=== PATIENT | male | born 1975 ===

== ENCOUNTER 2024-11-04 02:46 | Inpatient (IN) | payer BC, SELFPAY ==
[2024-11-04] VITALS (13 sets, daily range): BP systolic 153–177; BP diastolic 86–112; PULSE 74–116; RESP 13–19; TEMP 36.4–37.1; O2SAT 94–98; BMI 34.8
--- NOTE | 2024-11-04 | ECHO_ITS ---
Patient Info Name: Pavel Antony Age: 49 years : 1975 Gender: Male Ht: 73 in Wt: 249 lbs BSA: 2.44 m2 HR: 100 bpm BP: 172 / 104 mmHg Heart Rhythm: Sinus Rhythm Technical Quality: Fair Exam Date: 11/04/2024 11:35 AM Patient Status: I Admit Date: 11/04/2024 Exam Type: CA echo doppler w bubble study Complete two-dimensional, color flow and Doppler transthoracic echocardiogram is performed with agitated saline. Staff Referring Physician: Geo Lim Attending Provider: Renzo Ortiz Contrast/Agitated Saline Contrast/Ag. Saline: Agitated Saline Amount: 8.00 ml Summary 1. Agitated saline study did not review any dexah-vg-bded shunting. 2. The left ventricle is normal in size with hyperdynamic systolic function. There is concentric left ventricular remodeling. The left ventricular ejection fraction is greater than 70%. 3. The right ventricle is normal in size and systolic function. 4. There are no significant valvular abnormalities. Left Ventricle The left ventricle is normal in size with hyperdynamic systolic function. There is concentric left ventricular remodeling. The left ventricular ejection fraction is greater than 70%. Right Ventricle The right ventricle is normal in size and systolic function. Left Atria The left atrium is normal size. Right Atria The right atrium is normal size. Atrial Septum Agitated saline study did not review any nxtzc-sb-erzh shunting. Aortic Valve The aortic valve is trileaflet and opens well. There is no aortic regurgitation. Pulmonic Valve The pulmonic valve is not well visualized. There is no color Doppler evidence of pulmonic valve regurgitation. Mitral Valve The mitral valve leaflets are normal. There is no mitral regurgitation. Tricuspid Valve The tricuspid valve is normal. There is trace tricuspid regurgitation. Pericardium/Pleural Pericardium is normal in appearance with no evidence for significant pericardial effusion. Inferior Vena Cava Normal inferior vena cava with >50% collapse upon inspiration consistent with normal right atrial pressure, 3 mmHg. Aorta The aortic root at the level of the sinus of Valsalva measures 3.3 cm in diameter. Left Ventricular Outflow Tract Name Value Normal LVOT 2D LVOT Diameter 2.2 cm LVOT Doppler LVOT Peak Velocity 126 cm/s LVOT Peak Gradient 6 mmHg LVOT Mean Gradient 3 mmHg LVOT VTI 22 cm LVOT VTI/AV VTI Ratio 0.9 LVOT Stroke Volume 79 ml LVOT CO 7.5 l/min LVOT CI 3.1 l/min/m2 Pulmonic Valve Name Value Normal RVOT Doppler RVOT Peak Velocity 77 cm/s RVOT Peak Gradient 2 mmHg PV Doppler PV Peak Velocity 116 cm/s PV Peak Gradient 5 mmHg Mitral Valve Name Value Normal MV Diastolic Function MV E Peak Velocity 57 cm/s MV A Peak Velocity 79 cm/s MV E/A 0.7 MV Decel Time (PW) 192 ms MV Annular TDI MV E/e' (Septal) 8.8 MV E/e' (Lateral) 11.6 MV E/e' (Average) 10.2 Tricuspid Valve Name Value Normal TV Regurgitation Doppler TR Peak Velocity 249 cm/s TR Peak Gradient 25 mmHg Estimated PAP/RSVP RA Pressure 3 mmHg <=5 PA Systolic Pressure 28 mmHg <36 RV Systolic Pressure 28 mmHg <36 TV Annular TDI TV Lateral Gerri s' Velocity 30.6 cm/s >=9.5 Aortic Valve Name Value Normal AV Doppler AV Peak Velocity 149 cm/s AV Peak Gradient 9 mmHg AV Mean Gradient 4 mmHg AV VTI 23 cm AV Area (Cont Eq VTI) 3.4 cm2 >=3.0 AV Area (Cont Eq Fortino) 3.1 cm2 AV DI (Fortino) 0.84 AV Regurgitation 2D LVOT Area 3.6 cm2 Ventricles Name Value Normal LV Dimensions 2D/MM IVS Diastolic Thickness (2D) 1.2 cm 0.6-1.0 LVID Diastole (2D) 4.6 cm 4.2-5.8 LVIW Diastolic Thickness (2D) 1.3 cm 0.6-1.0 LVID Systole (2D) 2.7 cm 2.5-4.0 LVOT Diameter 2.2 cm LV Mass (2D Cubed) 217.75 g 88.00-224.00 LV Mass Index (2D Cubed) 89 g/m2 49-115 Relative Wall Thickness (2D) 0.58 <=0.42 LV Fractional Shortening/Ejection Fraction 2D/MM LV Fractional Shortening (2D) 42 % 25-43 LV EF (2D Teichholz) 73 % LV Diastolic Volume (4C MOD) 136 ml LV EF (4C MOD) 78 % LV Diastolic Volume (2C MOD) 143 ml LV EF (2C MOD) 79 % LV Diastolic Volume (BP MOD) 142 ml 62-150 LV Diastolic Volume Index (BP MOD) 58 ml/m2 34-74 LV Systolic Volume (BP MOD) 34 ml 21-61 LV Systolic Volume Index (BP MOD) 14 ml/m2 11-31 LV EF (BP MOD) 76 % 52-72 LV Diastolic Length (4C) 8.1 cm LV Systolic Length (4C) 5.5 cm LV Stroke Volume (4C MOD) 106 ml Atria Name Value Normal LA Dimensions LA Volume (4C A-L) 71 ml LA Volume (BP A-L) 64 ml RA Dimensions RA Systolic Major Bradley Length (4C) 4.6 cm 2.1-2.7 RA Area (4C) 16.2 cm2 <=18.0 Report Signatures
--- NOTE | ~2024-11-04 | CT_ITS ---
Non-contrast Head CT History: Viveros's palsy, left facial droop Technique: Axial non-contrast imaging of the brain was performed. Dose reduction technique was used on this scan by utilizing automated exposure control and iterative reconstruction technique. The dose -length product (DLP) was 681.00 mGy-cm. Findings: There is no evidence of intracranial hemorrhage, mass lesion, or acute infarct. Brain par enchyma appears normal. The ventricles and subarachnoid spaces are normal in size. The calvarium ap pears normal. The visualized paranasal sinuses and mastoid air cells are clear. Impression: No significant abnormality seen. Reviewed, dictated and finalized at location . Impression: No significant abnormality seen.
--- NOTE | ~2024-11-04 | XR_ITS ---
EXAMINATION: XR lumbar puncture diagnostic DATE: 11/06/2024 15:19 INDICATION: Weakness, numbness and suspected gambler a syndrome TECHNIQUE: The procedure including the risks and benefits was discussed with the patient. Risks discu ssed included spinal headache, cerebrospinal fluid leak, bleeding, and infection. The patient underst ood the risks and agreed to proceed. A timeout was performed to verify the patient's name, date of , and procedure to be performed. The skin overlying the L4-L5 level was prepped and draped in usual sterile fashion. Subcutaneous 1% lidocaine was used for local anesthesia. A 22 gauge spinal n eedle was advanced under fluoroscopic guidance. The needle was removed and the entry site was cleaned and dressed. There were no immediate complications. A total of 1 fluoroscopic images and one crosst able lateral radiograph were obtained. The amount of fluoroscopy time used during this procedure was 0.5 minutes. Total DAP was 8 mGycm^2 The patient was taken to the nursing area for observation. FINDINGS: Real-time fluoroscopy demonstrates the needle at the L4-L5 level. Opening pressure was 25 c m water. (Normal range is variably defined as 6-20 cm water and up to 25 cm water in obese patients. Pressure >25 cm water is one of the modified Dandy criteria for idiopathic intracranial hypertension) . 12 mL of clear, colorless fluid was collected in 4 tubes. IMPRESSION: 1. Successful fluoro-guided lumbar puncture with elevated opening pressure of 25 cm water. Reviewed, dictated and finalized at location A. IMPRESSION: 1. Successful fluoro-guided lumbar puncture with elevated opening pressure of 2 5 cm water.
--- NOTE | ~2024-11-04 | MR_ITS ---
EXAMINATION: MR brain/brain stem wo/w con DATE: 11/05/2024 08:26 INDICATION: Viveros's palsy TECHNIQUE: Magnetic resonance imaging (MRI) of the brain and brainstem was performed without and with 20 mL ProHance intravenous contrast. Sequences included sagittal and axial T1-weighted SE, axial dif fusion-weighted FS SE, axial 3D SWAN, axial T2-weighted FLAIR, and axial T2-weighted FSE. Postcontras t axial and coronal T1-weighted SE was obtained. Apparent diffusion coefficient (ADC) maps were creat ed. COMPARISON: Head CT dated 11/04/2024 FINDINGS: There are no areas of restricted diffusion to suggest acute infarction. No intracranial hemorrhage or abnormal intracranial mass lesion. There are scattered areas of nonspecific increased T2-weighted si gnal intensity in the cerebral white matter, predominantly involving the deep and periventricular whi te matter. There are no intraparenchymal signal abnormalities seen on the other pulse sequences. The ventricles are symmetric and normal in size. There are no abnormal extra-axial fluid collections. Darron w voids are seen in the cerebral arteries on the T2-weighted sequences consistent with their expected patency. Mild mucosal thickening the bilateral ethmoid and right frontal sinuses. Mucus retention cy st in the right maxillary sinus. Mastoid air cells are clear. Visualized orbits and soft tissues are unremarkable. There are no areas of abnormal enhancement on the post contrast images. IMPRESSION: 1. Normal brain. No acute intracranial process. Reviewed, dictated and finalized at location A.
--- OUTSIDE RECORDS SUMMARY | 2024-11-04 02:52 | XMS_ITS ---
Author Organization [facility] [employer] Address [address] [place] [address] Support Name Relationship Address Phone Arpan Dominique Emergency Contact [address] [place] [address] Pavel Antony Guarantor Unknown Unavailable REASON FOR VISIT Needs Chlorthalidone 25 MG Tablet Encounters Encounter Location Date Provider Diagnosis Sandi Carrizales [address] [place] [address] 08/07 Plan Of Treatment No Information Progress Notes * Pavel ANTONYDOB: [birth year] (49 yo M)Acc No.[id number]:08/07/2024 Patient: Pavel SHEETS :1975 A ge:49 Y S ex:Male Phone: Address:[address], [place] [address] * true * Date: Generated for Linda stubbs/Ani/Elkinitting on: 0 11/04/2024 02:52 AM CDT
--- OUTSIDE RECORDS SUMMARY | 2024-11-04 02:53 | XMS_ITS ---
Author Organization Case Management Address [address] [place] [id number] Care Team Providers Care Head [employer] Name Role Phone Mynor Reid Unavailable [phone] Allergies Allergen (clinical drug ingredient) Drug/Non Drug Allergy documented on EMR Reaction Allergy Type Onset Date Status Penicillin Unknown Drug Allergy Active REASON FOR VISIT atrovastatin (ok for tele per altamirano), Telemedicine visit Medications Medication SIG (Take, Route, Frequency, Duration) Notes Start Date End Date Status Telmisartan 40 MG 1.5 tablets Orally Once a day for 90 days Supervising MD: Dr. Patric Loja; prior PCP before he established in [facility] (recently moved). Active Atorvastatin Calcium 10 MG 1 tablet Orally Once a day for 90 days Supervising MD: Dr. Patric Loja; prior PCP before he established in [facility] (recently moved). Active cloNIDine HCl 0.1 MG 1 tablet Orally twice a day for 90 days Supervising MD: Dr. Patric Loja; prior PCP before he established in [facility] (recently moved). Active Encounters Encounter Location Date Provider Diagnosis [address] [id number] 07/07/2024 Mynor Reid Essential hyperte nsion I10 ; Mixed hyperlipidemia E78.2 ; Elevated LFTs R79.89 and Medication management Z79.899 Assessments Encounter Date Diagnosis (ICD Code) Assessment Notes Treatment Notes Treatment Clinical Notes Section Notes 07/07/2024 Essential hypertension (ICD-10 - I10) Assessment: #HYPERTENSION - 49 year old male is seen virtually (approved per ) for a hypertension follow-up. - Patient recently moved from [place] to [facility] and has not established with new PCP yet, and is running out of his HTN medications. - Current Regimen = telmisartan 60 mg QD and clonidine 0.1 mg BID. - Home BPs in the 120s-130s / low 80s. - Denies any side effects of medication, hypotension, lightheadedness, or dizziness. - Patient is asymptomatic at this time. - Denies any chest pain, headaches, dyspnea, palpitations, vision changes, or leg edema. - PE = unremarkable. - EKG = 08/2023. - Eye Exam = DUE for 2024. - CMP = electrolytes stable 02/2024. - Microalbumin = 12/2023. PLAN: - Continue telmisartan 1.5 40 mg QD. - Continue clonidine 0.1 mg BID. - Side effects of medications reviewed with patient (cough, angioedema). - Continue to monitor BP daily at home. Record reading daily and bring data to follow-up visit for further evaluation. - Counseled patient regarding lifestyle modifications including: weight loss, DASH diet, reduced sodium intake, and moderate intensity aerobic exercise for 120-150 minutes per week. - Red flags of hypertension and when to seek emergent care discussed with patient. - Patient expressed verbal understanding of the entire above discussion and agreed to plan. - Follow-up with PCP in [facility] when established, sooner as needed for symptoms or elevated blood pressure readings. #HYPERLIPIDEMIA - 49 year old male with a history of hyperlipidemia is virtually (approved per ) for a cholesterol refill. - Patient recently moved from [place] to [facility] and has not established with new PCP yet, and is running out of his HLD medication. - Current Regimen = atorvastatin 10 mg QD. - Denies any myalgia or other side effects of medications today. - Lipid Panel = 03/09 --> TG 273 H, HDL 43, LDL 89. - LFTs = ALT 111 H, AST 48 H. PLAN: - Refilled atorvastatin 10 mg QD, 90-day supply sent. - Emphasized the importance of lifestyle modifications in addition to pharmacologic interventions with patient (weight loss, increased cardiovascular exercise, dietary modifications). - Red flags reviewed with patient. - All questions answered and addressed. - Patient expressed verbal understanding of entire above discussion and agreed to plan. - Follow-up with PCP in [facility] when established, sooner PRN. 07/07/2024 Mixed hyperlipidemia (ICD-10 - E78.2) Assessment: #HYPERTENSION - 49 year old male is seen virtually (approved per last altamirano) for a hypertension follow-up. - Patient recently moved from [place] to [facility] and has not established with new PCP yet, and is running out of his HTN medications. - Current Regimen = telmisartan 60 mg QD and clonidine 0.1 mg BID. - Home BPs in the 120s-130s / low 80s. - Denies any side effects of medication, hypotension, lightheadedness, or dizziness. - Patient is asymptomatic at this time. - Denies any chest pain, headaches, dyspnea, palpitations, vision changes, or leg edema. - PE = unremarkable. - EKG = 08/2023. - Eye Exam = DUE for 2024. - CMP = electrolytes stable 02/2024. - Microalbumin = 12/2023. PLAN: - Continue telmisartan 1.5 40 mg QD. - Continue clonidine 0.1 mg BID. - Side effects of medications reviewed with patient (cough, angioedema). - Continue to monitor BP daily at home. Record reading daily and bring data to follow-up visit for further evaluation. - Counseled patient regarding lifestyle modifications including: weight loss, DASH diet, reduced sodium intake, and moderate intensity aerobic exercise for 120-150 minutes per week. - Red flags of hypertension and when to seek emergent care discussed with patient. - Patient expressed verbal understanding of the entire above discussion and agreed to plan. - Follow-up with PCP in [facility] when established, sooner as needed for symptoms or elevated blood pressure readings. #HYPERLIPIDEMIA - 49 year old male with a history of hyperlipidemia is virtually (approved per last altamirano) for a cholesterol refill. - Patient recently moved from [place] to [facility] and has not established with new PCP yet, and is running out of his HLD medication. - Current Regimen = atorvastatin 10 mg QD. - Denies any myalgia or other side effects of medications today. - Lipid Panel = 03/09 --> TG 273 H, HDL 43, LDL 89. - LFTs = ALT 111 H, AST 48 H. PLAN: - Refilled atorvastatin 10 mg QD, 90-day supply sent. - Emphasized the importance of lifestyle modifications in addition to pharmacologic interventions with patient (weight loss, increased cardiovascular exercise, dietary modifications). - Red flags reviewed with patient. - All questions answered and addressed. - Patient expressed verbal understanding of entire above discussion and agreed to plan. - Follow-up with PCP in [facility] when established, sooner PRN. 07/07/2024 Elevated LFTs (ICD-10 - R79.89) Assessment: #HYPERTENSION - 49 year old male is seen virtually (approved per last altamirano) for a hypertension follow-up. - Patient recently moved from [place] to [facility] and has not established with new PCP yet, and is running out of his HTN medications. - Current Regimen = telmisartan 60 mg QD and clonidine 0.1 mg BID. - Home BPs in the 120s-130s / low 80s. - Denies any side effects of medication, hypotension, lightheadedness, or dizziness. - Patient is asymptomatic at this time. - Denies any chest pain, headaches, dyspnea, palpitations, vision changes, or leg edema. - PE = unremarkable. - EKG = 08/2023. - Eye Exam = DUE for 2024. - CMP = electrolytes stable 02/2024. - Microalbumin = 12/2023. PLAN: - Continue telmisartan 1.5 40 mg QD. - Continue clonidine 0.1 mg BID. - Side effects of medications reviewed with patient (cough, angioedema). - Continue to monitor BP daily at home. Record reading daily and bring data to follow-up visit for further evaluation. - Counseled patient regarding lifestyle modifications including: weight loss, DASH diet, reduced sodium intake, and moderate intensity aerobic exercise for 120-150 minutes per week. - Red flags of hypertension and when to seek emergent care discussed with patient. - Patient expressed verbal understanding of the entire above discussion and agreed to plan. - Follow-up with PCP in [facility] when established, sooner as needed for symptoms or elevated blood pressure readings. #HYPERLIPIDEMIA - 49 year old male with a history of hyperlipidemia is virtually (approved per ) for a cholesterol refill. - Patient recently moved from [place] to [facility] and has not established with new PCP yet, and is running out of his HLD medication. - Current Regimen = atorvastatin 10 mg QD. - Denies any myalgia or other side effects of medications today. - Lipid Panel = 03/09 --> TG 273 H, HDL 43, LDL 89. - LFTs = ALT 111 H, AST 48 H. PLAN: - Refilled atorvastatin 10 mg QD, 90-day supply sent. - Emphasized the importance of lifestyle modifications in addition to pharmacologic interventions with patient (weight loss, increased cardiovascular exercise, dietary modifications). - Red flags reviewed with patient. - All questions answered and addressed. - Patient expressed verbal understanding of entire above discussion and agreed to plan. - Follow-up with PCP in [facility] when established, sooner PRN. 07/07/2024 Medication management (ICD-10 - Z79.899) Assessment: #HYPERTENSION - 49 year old male is seen virtually (approved per ) for a hypertension follow-up. - Patient recently moved from [place] to [facility] and has not established with new PCP yet, and is running out of his HTN medications. - Current Regimen = telmisartan 60 mg QD and clonidine 0.1 mg BID. - Home BPs in the 120s-130s / low 80s. - Denies any side effects of medication, hypotension, lightheadedness, or dizziness. - Patient is asymptomatic at this time. - Denies any chest pain, headaches, dyspnea, palpitations, vision changes, or leg edema. - PE = unremarkable. - EKG = 08/2023. - Eye Exam = DUE for 2024. - CMP = electrolytes stable 02/2024. - Microalbumin = 12/2023. PLAN: - Continue telmisartan 1.5 40 mg QD. - Continue clonidine 0.1 mg BID. - Side effects of medications reviewed with patient (cough, angioedema). - Continue to monitor BP daily at home. Record reading daily and bring data to follow-up visit for further evaluation. - Counseled patient regarding lifestyle modifications including: weight loss, DASH diet, reduced sodium intake, and moderate intensity aerobic exercise for 120-150 minutes per week. - Red flags of hypertension and when to seek emergent care discussed with patient. - Patient expressed verbal understanding of the entire above discussion and agreed to plan. - Follow-up with PCP in [facility] when established, sooner as needed for symptoms or elevated blood pressure readings. #HYPERLIPIDEMIA - 49 year old male with a history of hyperlipidemia is virtually (approved per last altamirano) for a cholesterol refill. - Patient recently moved from [place] to [facility] and has not established with new PCP yet, and is running out of his HLD medication. - Current Regimen = atorvastatin 10 mg QD. - Denies any myalgia or other side effects of medications today. - Lipid Panel = 03/09 --> TG 273 H, HDL 43, LDL 89. - LFTs = ALT 111 H, AST 48 H. PLAN: - Refilled atorvastatin 10 mg QD, 90-day supply sent. - Emphasized the importance of lifestyle modifications in addition to pharmacologic interventions with patient (weight loss, increased cardiovascular exercise, dietary modifications). - Red flags reviewed with patient. - All questions answered and addressed. - Patient expressed verbal understanding of entire above discussion and agreed to plan. - Follow-up with PCP in [facility] when established, sooner PRN. Plan Of Treatment Medication Medication Name Sig Start Date Stop Date Notes Telmisartan 40 MG 1.5 tablets Orally Once a day for 90 days Supervising MD: Dr. Patric Loja; prior PCP before he established in [facility] (recently moved). Atorvastatin Calcium 10 MG 1 tablet Orally Once a day for 90 days Supervising MD: Dr. Patric Loja; prior PCP before he established in [facility] (recently moved). cloNIDine HCl 0.1 MG 1 tablet Orally twice a day for 90 days Supervising MD: Dr. Patric Loja; prior PCP before he established in [facility] (recently moved). Progress Notes * Pavel ANTONYDOB: [birth year] (49 yo M)Acc No.[id number]:07/07/2024 TELE20 Patient: Pavel SHEETS Provider: Rosalee Reid PA-C :1975 A ge:49 Y S ex:Male Date:07/07/2024 Phone: Address:[facility] [address], [address], [id number] Subjective: * Chief Complaints: * 1 . Atrovastatin (ok for tele per altamirano). 2. Telemedicine visit. * HPI: N ew symptom(s):: CC: Follow-up for Blood Pressure Management and Medication Review HPI: Patient recently moved to [facility], approximately 4.5 hours from [place]. He reports his blood pressure has been well-controlled, with recent readings of 120-130/80 during a recent blood donation. He is currently taking telmisartan 60 mg (1.5 tablets daily) and quinidine 0.1 mg twice daily for hypertension, and atorvastatin 10 mg for hyperlipidemia. The patient denies any side effects from these medications, including chest pain, palpitations, dyspnea, edema, or muscle cramps. He expresses interest in resuming health and diet counseling, noting limited progress with weight loss despite improved dietary choices, which have been challenging during the recent move. Patient reports eating better food, but acknowledges dietary challenges while traveling. Patient denies any other acute concerns at this time. 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 * Surgical History: c holecystectomy . * Hospitalization/Major Diagno stic Procedure: w ent to ED d/t HTN episode 2017. * Family History: F ather: alive, diagnosed with Hypertension. M other: , diagnosed with Hypertension. P aternal Grand Father: unknown. P aternal Grand Mother: unknown. M aternal Grand Father: , UNSURE OF CAUSE OF , WAS A AMBULATORY CARE. M aternal Grand Mother: , COLON CANCER, diagnosed with Cancer. 2 brother(s) , 1 sister(s) - healthy. . [id number]. * Medications: T aking cloNIDine HCl 0.1 MG Tablet TAKE 1 TABLET BY MOUTH TWICE DAILY FOR 7 DAYS Oral , Notes to Pharmacist: PRN, Taking Telmisartan 40 MG Tablet 1.5 tablets Orally Once a day , Notes to Pharmacist: Courtesy refill, Taking Atorvastatin Calcium 10 MG Tablet 1 tablet Orally Once a day * Allergies: P enicillin: Allergy. Objective: * Examination: G eneral Examination: GENERAL APPEARANCE: alert, well hydrated, in no distress.?EYES: normal. P SYCH: alert, oriented. R alice: T he appointment exceeded 30 minutes, including direct patient interaction for counseling, result review, and care planning discussions, plus additional time spent on care coordination, treatment planning, and medical documentation. Assessment: * Assessment: 1. E ssential hypertension - I10 (Primary) 2 . M ixed hyperlipidemia - E78.2 3 . E levated LFTs - R79.89 4 . M edication management - Z79.899 Assessment: #HYPERTENSION - 49 year old male is seen virtually (approved per last altamirano) for a hypertension follow-up. - Patient recently moved from [place] to [facility] and has not established with new PCP yet, and is running out of his HTN medications. - Current Regimen = telmisartan 60 mg QD and clonidine 0.1 mg BID. - Home BPs in the 120s-130s / low 80s. - Denies any side effects of medication, hypotension, lightheadedness, or dizziness. - Patient is asymptomatic at this time. - Denies any chest pain, headaches, dyspnea, palpitations, vision changes, or leg edema. - PE = unremarkable. - EKG = 08/2023. - Eye Exam = DUE for 2024. - CMP = electrolytes stable 02/2024. - Microalbumin = 12/2023. PLAN: - Continue telmisartan 1.5 40 mg QD. - Continue clonidine 0.1 mg BID. - Side effects of medications reviewed with patient (cough, angioedema). - Continue to monitor BP daily at home. Record reading daily and bring data to follow-up visit for further evaluation. - Counseled patient regarding lifestyle modifications including: weight loss, DASH diet, reduced sodium intake, and moderate intensity aerobic exercise for 120-150 minutes per week. - Red flags of hypertension and when to seek emergent care discussed with patient. - Patient expressed verbal understanding of the entire above discussion and agreed to plan. - Follow-up with PCP in [facility] when established, sooner as needed for symptoms or elevated blood pressure readings. #HYPERLIPIDEMIA - 49 year old male with a history of hyperlipidemia is virtually (approved per last altamirano) for a cholesterol refill. - Patient recently moved from [place] to [facility] and has not established with new PCP yet, and is running out of his HLD medication. - Current Regimen = atorvastatin 10 mg QD. - Denies any myalgia or other side effects of medications today. - Lipid Panel = 03/09 TG 273 H, HDL 43, LDL 89. - LFTs = ALT 111 H, AST 48 H. PLAN: - Refilled atorvastatin 10 mg QD, 90-day supply sent. - Emphasized the importance of lifestyle modifications in addition to pharmacologic interventions with patient (weight loss, increased cardiovascular exercise, dietary modifications). - Red flags reviewed with patient. - All questions answered and addressed. - Patient expressed verbal understanding of entire above discussion and agreed to plan. - Follow-up with PCP in [facility] when established, sooner PRN. Plan: * Treatment: 2. M ixed hyperlipidemia Refill Atorvastatin Calcium Tablet, 10 MG, 1 tablet, Orally, Once a day, 90 days, 90, Refills 0, Notes to Pharmacist: Supervising MD: Dr. Patric Loja; prior PCP before he established in [facility] (recently moved).. * Images: * Electronic signature of Mynor Reid PA-C on 11/04/2024 at 02:52 AM CDT Sign off status: Pending * Provider: Rosalee Reid PA-C Date: 0 07/07/2024 Generated for Linda stubbs/Ani/Dex on: 0 11/04/2024 02:52 AM CDT History and Physical Notes * HPI (History of Present Illness) Category Sub-Category Detail Notes Category Not es New symptom(s): CC: Follow-up for Blood Pressure Management and Medication Review HPI: Patient recently moved to [facility], approximately 4.5 hours from [place]. He reports his blood pressure has been well-controlled, with recent readings of 120-130/80 during a recent blood donation. He is currently taking telmisartan 60 mg (1.5 tablets daily) and quinidine 0.1 mg twice daily for hypertension, and atorvastatin 10 mg for hyperlipidemia. The patient denies any side effects from these medications, including chest pain, palpitations, dyspnea, edema, or muscle cramps. He expresses interest in resuming health and diet counseling, noting limited progress with weight loss despite improved dietary choices, which have been challenging during the recent move. Patient reports eating better food, but acknowledges dietary challenges while traveling. Patient denies any other acute concerns at this time. Examination Category Sub-Category Detail Notes Category Not es General Examination GENERAL APPEARANCE: alert, w ell hydrated, in no distress EYES: normal PSYCH: alert, oriented Review The appointment exceeded 30 minutes, including direct patient interaction for counseling, result review, and care planning discussions, plus additional time spent on care coordination, treatment planning, and medical documentation
--- OUTSIDE RECORDS SUMMARY | 2024-11-04 02:53 | XMS_ITS ---
Author Organization Case Management Address [address] [place] [id number] Care Team Providers Care Jack Strip Assembler Name Role Phone ElMarvinen Unavailable [phone] REASON FOR VISIT chlorthalidone script Medications Medication SIG (Take, Route, Frequency, Duration) Notes Start Date End Date Status Telmisartan 40 MG 1.5 tablets Orally Once a day for 90 days Supervising MD: Dr. Patric Loja; prior PCP before he established in [facility] (recently moved). Active Atorvastatin Calcium 10 MG 1 tablet Orally Once a day for 90 days Supervising MD: Dr. Patric Loja; prior PCP before he established in [facility] (recently moved). Active cloNIDine HCl 0.1 MG 1 tablet Orally twice a day for 90 days Supervising MD: Dr. Patric Loja; prior PCP before he established in [facility] (recently moved). Active Chlorthalidone 25 MG 0.5 tablet in the morning with food Orally Once daily for 60 days Active Encounters Encounter Location Date Provider Diagnosis [facility] [address] [place] [id number] 08/08/2024 Amber El Essential (primar y) hypertension I10 ; Medication management Z79.899 and Persons encountering health services in other specified circumstances Z76.89 Assessments Encounter Date Diagnosis (ICD Code) Assessment Notes Treatment Notes Treatment Clinical Notes Section Notes 08/08/2024 Essential (primary) hypertension (ICD-10 - I10) Reviewed prior notes/encounters -- patient moved to [facility] from [place] and searching for new PCP. Was managed here for HTN and HLD. BP regimen includes clonidine patch, ARB and chlorthalidone. Seen via tele 1mo ago for med refills to bridge until new provider established though chlorthalidone not sent. Sending 60day supply of chlorthalidone (30tabs - takes 0.5tab for 12.5mg dose) to pharmacy to align with 90day supply of other meds sent 1mo ago. Dear Amanuel, I have sent a refill of chlorthalidone to align with the other medications that were sent to the pharmacy at the end of June. Please let us know if you have additional questions or concerns. Have a great day! Sincerely, [facility] [phone] 08/08/2024 Medication management (ICD-10 - Z79.899) Reviewed prior notes/encounters -- patient moved to [facility] from [place] and searching for new PCP. Was managed here for HTN and HLD. BP regimen includes clonidine patch, ARB and chlorthalidone. Seen via tele 1mo ago for med refills to bridge until new provider established though chlorthalidone not sent. Sending 60day supply of chlorthalidone (30tabs - takes 0.5tab for 12.5mg dose) to pharmacy to align with 90day supply of other meds sent 1mo ago. Dear Amanuel, I have sent a refill of chlorthalidone to align with the other medications that were sent to the pharmacy at the end of June. Please let us know if you have additional questions or concerns. Have a great day! Sincerely, [facility] [phone] 08/08/2024 Persons encountering health services in other specified circumstances (ICD-10 - Z76.89) Reviewed prior notes/encounters -- patient moved to [facility] from [place] and searching for new PCP. Was managed here for HTN and HLD. BP regimen includes clonidine patch, ARB and chlorthalidone. Seen via tele 1mo ago for med refills to bridge until new provider established though chlorthalidone not sent. Sending 60day supply of chlorthalidone (30tabs - takes 0.5tab for 12.5mg dose) to pharmacy to align with 90day supply of other meds sent 1mo ago. Dear Amanuel, I have sent a refill of chlorthalidone to align with the other medications that were sent to the pharmacy at the end of June. Please let us know if you have additional questions or concerns. Have a great day! Sincerely, [facility] [phone] Plan Of Treatment Medication Medication Name Sig Start Date Stop Date Notes Chlorthalidone 25 MG 0.5 tablet in the m orning with food Orally Once daily for 60 days Progress Notes * Pavel PEDERSENDOB: 4 (49 yo M)Acc No.[id number]:08/08/2024 Telephone/Online Visit Patient: Pavel SHEETS Provider: Nayeli Gallegos :1975 A ge:49 Y S ex:Male Date:08/08/2024 Phone: Address:[facility] [place] , [address] Subjective: * Chief Complaints: * 1 . Chlorthalidone script. * Medical History: * Medications: T aking Telmisartan 40 MG Tablet 1.5 tablets Orally Once a day , Notes to Pharmacist: Supervising MD: Dr. Patric Loja; prior PCP before he established in [facility] (recently moved)., Taking cloNIDine HCl 0.1 MG Tablet 1 tablet Orally twice a day , Notes to Pharmacist: Supervising MD: Dr. Patric Loja; prior PCP before he established in [facility] (recently moved)., Taking Atorvastatin Calcium 10 MG Tablet 1 tablet Orally Once a day , Notes to Pharmacist: Supervising MD: Dr. Patric Loja; prior PCP before he established in [facility] (recently moved). Objective: * Examination: I nterim History: D ocumentation pertains to the online digital evaluation and management services rendered over a cumulative period exceeding 10 minutes within a 7-day timeframe. This time encompassed the review of the patient's medical records, medication and allergy history and external records.? The review encompassed the health record, EMR, obtaining external data and a search for additional sources. All records, prior notes and available test results were reviewed. The patient was recommended appropriate follow-up based upon the results of the review regarding their condition. The time also included care coordination activities. Assessment: * Assessment: 1. E ssential (primary) hypertension - I10 (Primary) 2 . M edication management - Z79.899 3 . P ersons encountering health services in other specified circumstances - Z76.89 Reviewed prior notes/encount ers -- patient moved to [facility] from [place] and searching for new PCP. Was managed here for HTN and HLD. BP regimen includes clonidine patch, ARB and chlorthalidone. Seen via tele 1mo ago for med refills to bridge until new provider established though chlorthalidone not sent. Sending 60day supply of chlorthalidone (30tabs - takes 0.5tab for 12.5mg dose) to pharmacy to align with 90day supply of other meds sent 1mo ago. Dear Amanuel, I have sent a refill of chlorthalidone to align with the other medications that were sent to the pharmacy at the end of June. Please let us know if you have additional questions or concerns. Have a great day! Sincerely, [facility] [phone] Plan: * Treatment: * Procedure Codes: 9 8970 QNHP OL DIG ASSMT&MGMT 5-10, Modifiers: 95 * Images: * Electronic signature of Marvin Gallegos PA-C on 11/04/2024 at 02:53 AM CDT Sign off status: Pending * Provider: Nayeli Gallegos Date: 0 08/08/2024 Generated for Linda stubbs/Ani/Dex on: 0 11/04/2024 02:53 AM CDT History and Physical Notes * Examination Category Sub-Category Detail Notes Category Not es Interim History Documentatio n pertains to the online digital evaluation and management services rendered over a cumulative period exceeding 10 minutes within a 7-day timeframe. This time encompassed the review of the patient's medical records, medication and allergy history and external records. The review encompassed the health record, EMR, obtaining external data and a search for additional sources. All records, prior notes and available test results were reviewed. The patient was recommended appropriate follow-up based upon the results of the review regarding their condition. The time also included care coordination activities.
--- OUTSIDE RECORDS SUMMARY | 2024-11-04 02:53 | XMS_ITS | Patient Health Record ---
Author Organization Case Management Address [address] [place] [id number] Care Team Providers Care Certified Vehicle Fire Investigator Name Role Phone JAG LOJA Unavailable [phone] Niru Romero Unavailable Vandana Zepeda Unavailable [phone] Caleb Pagan Unavailable [phone] Mynor Reid Unavailable [phone] Amber Gallegos Unavailable [phone] Allergies Allergen (clinical drug ingredient) Drug/Non Drug Allergy documented on EMR Reaction Allergy Type Onset Date Status Penicillin Unknown Drug Allergy Active Results Component Value Reference Range Notes LIPID PANEL WITH LDL-CALC (Lainey PARSONS) -eCW Reviewed date:01/28/2024 06:09:14 PM Interpretation: Performing Lab:[facility], [address] [place] [address], [id number] Notes/Report: Total Cholesterol 160 0-199 mg/dL Triglycerides 291 0-150 mg/dL NCEP Reference Values for Triglycerides: Normal: <150 mg/dL Borderline High: 150 - 199 mg/dL High: 200 - 499 mg/dL Very High: >/= 500 mg/dL HDL Cholesterol 41 >40 mg/dL LDL Cholesterol 81 0-99 mg/dL Cutoff values recommended by the National Cholesterol Education Program: DESIRABLE: Cholesterol <200 mg/dL LDL <100 mg/dL BORDERLINE: Cholesterol 200-239 mg/dL LDL 101-159 mg/dL HIGHER RISK: Cholesterol >240 mg/dL LDL >160 mg/dL, HDL <40 mg/dL Non-HDL Cholesterol 119 No Reference Range mg/dL A reasonable goal for non-HDL cholesterol is one that is 30 mg/dL higher than the LDL cholesterol goal. CHOL/HDL Ratio 3.9 0.0-5.0 . cbc-citrate tube On October 08, 2022, [facility] laboratories changed the equation for calculating estimated low-density lipoprotein-cholesterol (LDL-C) from the Friedewald equation to the Silver/Keren equation. This new equation is only valid for lipid panels with triglycerides < 400 mg/dL. Studies have demonstrated that this new equation will improve the accuracy of LDL-C, especially in scenarios when LDL-C concentrations are relatively low (< 100 mg/dL), triglycerides are elevated, or patient is non-fasting. References: - Negro Sheppard, Candido Johnson, Chinyere Stock, Juan F Lai, Juan F Singer, Jagjit Elaine, and Reg Johnson. 2013. Comparison of a Novel Method vs the Friedewald Equation for Estimating Low-Density Lipoprotein Cholesterol Levels from the Standard Lipid Profile. [place]: The Journal of the [place] [employer] 310 (19): 2061-68. - Luke V, Sofie J, Ria A, Deon M, Almaz R, Winnie E, [place] RS, Alex SR, Silver SS. Fasting Versus Nonfasting and Low-Density Lipoprotein Cholesterol Accuracy. Circulation. 2018 Jun 17;137(1):10-19. COMP METABOLIC PANEL - eCW Reviewed date:01/28/2024 06:09:14 PM Interpretation: Performing Lab:[facility], [address] [place] [address], [address] Notes/Report: Sodium 140 133-146 mmol/L Potassium 4.6 3.5-5.1 mmol/L Chloride 100 98-107 mmol/L Carbon Dioxide 32 21-31 mmol/L Blood Urea Nitrogen 12 7-25 mg/dL Creatinine 1.29 0.60-1.30 mg/dL Calcium 10.1 8.3-10.5 mg/dL Glucose 109 70-100 mg/dL Protein, Total 7.2 6.4-8.3 g/dL Albumin 4.7 3.5-5.0 g/dL ALT 82 11-51 units/L Alkaline Phosphatase 54 34-104 units/L AST 42 13-39 units/L Bilirubin, Total 1.2 0.2-1.2 mg/dL cbc-citrat e tube Anion Gap 8 4-13 mmol/L eGFRcr (CKD-EPI 2020) 68 >=60 mL/mi n/1.73 m2 LIPID PANEL WITH LDL-CALC (Lainey ISSA) -eCW Reviewed date:02/26/2024 06:30:45 PM Interpretation: Performing Lab:[facility], [address] [place] [address], [address] Notes/Report: Total Cholesterol 168 0-199 mg/dL Triglycerides 273 0-150 mg/dL NCEP Reference Values for Triglycerides: Normal: <150 mg/dL Borderline High: 150 - 199 mg/dL High: 200 - 499 mg/dL Very High: >/= 500 mg/dL HDL Cholesterol 43 >40 mg/dL LDL Cholesterol 89 0-99 mg/dL Cutoff values recommended by the National Cholesterol Education Program: DESIRABLE: Cholesterol <200 mg/dL LDL <100 mg/dL BORDERLINE: Cholesterol 200-239 mg/dL LDL 101-159 mg/dL HIGHER RISK: Cholesterol >240 mg/dL LDL >160 mg/dL, HDL <40 mg/dL Non-HDL Cholesterol 125 No Reference Range mg/dL A reasonable goal for non-HDL cholesterol is one that is 30 mg/dL higher than the LDL cholesterol goal. CHOL/HDL Ratio 3.9 0.0-5.0 . sst 2 lav 1 On October 08, 2022, [facility] laboratories changed the equation for calculating estimated low-density lipoprotein-cholesterol (LDL-C) from the Friedewald equation to the Silver/Keren equation. This new equation is only valid for lipid panels with triglycerides < 400 mg/dL. Studies have demonstrated that this new equation will improve the accuracy of LDL-C, especially in scenarios when LDL-C concentrations are relatively low (< 100 mg/dL), triglycerides are elevated, or patient is non-fasting. References: - Negro Sheppard, Candido Johnson, Chinyere Stock, Juan F Lai, Juan F Singer, Jagjit Elaine, and Reg Johnson. 2013. Comparison of a Novel Method vs the Friedewald Equation for Estimating Low-Density Lipoprotein Cholesterol Levels from the Standard Lipid Profile. [place]: The Journal of the [place] [employer] 310 (19): 2061-68. - Luke V, Sofie J, Ria A, Deon M, Almaz R, Winnie E, [place] RS, Alex SR, Silver SS. Fasting Versus Nonfasting and Low-Density Lipoprotein Cholesterol Accuracy. Circulation. 2017Jun 17;137(1):10-19. COMP METABOLIC PANEL - eCW Reviewed date:02/26/2024 06:30:45 PM Interpretation: Performing Lab:[facility], [address] [place], [address] Notes/Report: Sodium 138 133-146 mmol/L Potassium 4.3 3.5-5.1 mmol/L Chloride 102 98-107 mmol/L Carbon Dioxide 27 21-31 mmol/L Blood Urea Nitrogen 15 7-25 mg/dL Creatinine 1.09 0.60-1.30 mg/dL Calcium 9.9 8.3-10.5 mg/dL Glucose 122 70-100 mg/dL Protein, Total 7.0 6.4-8.3 g/dL Albumin 4.7 3.5-5.0 g/dL ALT 111 11-51 units/L Alkaline Phosphatase 54 34-104 units/L AST 48 13-39 units/L Bilirubin, Total 1.1 0.2-1.2 mg/dL sst 2 lav 1 Anion Gap 9 4-13 mmol/L eGFRcr (CKD-EPI 2020) 83 >=60 mL/mi n/1.73 m2 CBC w/DIFF - eCW Reviewed date:02/26/2024 06:30:45 PM Interpretation: Performing Lab:[facility], [address] [place], [address] Notes/Report: sst 2 lav 1 02/25/2024 7:35 AM: P indicates partial results on a panel have been released. Additional results will follow. sst 2 lav 1 02/25/2024 7:35 AM: This result has been final verified. No additional or changed results are expected. WBC 6.1 3.5-10.5 10'3/uL RBC 5.16 (Based on documented legal sex) 4.30-5.80 10'6/uL HGB 16.7 (Based on documented legal sex) 13.0-17.5 g/dL HCT 49.5 (Based on documented legal sex) 38.0-50.0 % MCV 95.9 80.0-99.0 fL MCH 32.4 27.0-34.0 pg MCHC 33.7 32.0-35.5 g/dL RDW 13.0 11.0-15.0 % PLT 129 150-400 10'3/uL MPV 10.0 8.8-12.1 fL NRBC's 0.0 0.0 % Absolute NRBCs 0.0 No reference ran ge established 10'3/uL Neutrophils 53.9 34.0-73.0 % Lymphocytes 29.6 15.0-50.0 % Monocytes 12.9 1.0-15.0 % Eosinophils 2.4 0.0-8.0 % Basophils 0.7 0.0-2.0 % Absolute Neutrophils 3.3 1.5-8.0 10'3/uL Absolute Lymphocytes 1.8 1.0-4.0 10'3/uL Absolute Monocytes 0.8 0.2-1.0 10'3/uL Absolute Eosinophils 0.2 0.0-0.6 10'3/uL Absolute Basophils 0.0 0.0-0.3 10'3/uL Immature Granulocytes 0.5 No defined reference range % Absolute Immature Granulocytes 0.0 0.00-0.10 10'3/uL VITAMIN D, 25-OH (TOTAL D2/D 3) -eCW Reviewed date:01/08/2024 11:05:54 AM Interpretation: Performing Lab:[facility], [address] [place] [address], [address] Notes/Report: Vitamin D, 25-Hydroxy, Total 36.1 30.0-100.0 ng/mL Suggestive of Deficiency: <20 ng/mL Suggestive of Insufficiency: 20-29 ng/mL Suggestive of Sufficiency: 30-100 ng/mL Suggestive of Toxicity: >150 ng/mL THYROXINE (T4) FREE -eCW Reviewed date:01/08/2024 11:05:54 AM Interpretation: Performing Lab:[facility], [address] [place] [address], [address] Notes/Report: T4, Free 0.78 0.60-1.40 ng/dL This assay is susceptible to interference from high levels of biotin which may falsely elevate results. Please correlate with clinical findings. T3 TOTAL -eCW Reviewed date:01/08/2024 11:05:54 AM Interpretation: Performing Lab:[facility], [address] [place] [address], [address] Notes/Report: T3 Total 113 80-200 ng/dL This assay is susceptible to interference from high levels of biotin which may falsely elevate results. Please correlate with clinical findings. LIPASE -eCW Reviewed date:01/08/2024 11:05:54 AM Interpretation: Performing Lab:[facility], [address] [place] [address], [address] Notes/Report: Lipase 33 11-82 units/L AMYLASE, SERUM - eCW Reviewed date:01/08/2024 11:05:54 AM Interpretation: Performing Lab:[facility], [address] [place] [address], [id number] Notes/Report: Amylase 45 29-103 units/L MICROALBUMIN, RANDOM URINE ( W/CREATININE) - eCW Reviewed date:01/08/2024 11:05:54 AM Interpretation: Performing Lab:[facility], [address] [place] [address], [id number] Notes/Report: R-No reference range established for this assay Microalbumin, Urine 0.7 0.0-1.8 mg/dL Creatinine, Urine 143.1 Microalbumin/Creatinin e Ratio 5 0-29 mg/g CBC w/DIFF - eCW Reviewed date:01/28/2024 06:09:14 PM Interpretation: Performing Lab:[facility], [address] [place] [address], [address] Notes/Report: cbc-citrate tube 01/28/2024 7:51 AM: P indicates partial results on a panel have been released. Additional results will follow. cbc-citrate tube 01/28/2024 7:51 AM: This result has been final verified. No additional or changed results are expected. WBC 6.5 3.5-10.5 10'3/uL RBC 5.84 (Based on documented legal sex) 4.30-5.80 10'6/uL HGB 19.0 (Based on documented legal sex) 13.0-17.5 g/dL HCT 56.0 (Based on documented legal sex) 38.0-50.0 % MCV 95.9 80.0-99.0 fL MCH 32.5 27.0-34.0 pg MCHC 33.9 32.0-35.5 g/dL RDW 14.0 11.0-15.0 % PLT 115 150-400 10'3/uL MPV 10.1 8.8-12.1 fL NRBC's 0.0 0.0 % Absolute NRBCs 0.0 No reference ran ge established 10'3/uL Neutrophils 56.1 34.0-73.0 % Lymphocytes 27.8 15.0-50.0 % Monocytes 13.1 1.0-15.0 % Eosinophils 1.5 0.0-8.0 % Basophils 0.6 0.0-2.0 % Absolute Neutrophils 3.7 1.5-8.0 10'3/uL Absolute Lymphocytes 1.8 1.0-4.0 10'3/uL Absolute Monocytes 0.9 0.2-1.0 10'3/uL Absolute Eosinophils 0.1 0.0-0.6 10'3/uL Absolute Basophils 0.0 0.0-0.3 10'3/uL Immature Granulocytes 0.9 No defined reference range % Absolute Immature Granulocytes 0.1 0.00-0.10 10'3/uL BLOOD SMEAR EXAM WITH PATHOL OGIST REVIEW Reviewed date:01/12/2024 11:46:04 AM Interpretation: Performing Lab:[facility], [place], [address] Notes/Report: Pathologist Interpretation Erythrocytes are normocytic normochromic with no significant anisopoikilocytosis. Leukocytes are normal in number, distribution, and morphology. Platelets are mildly decreased in number with unremarkable morphologies. There is no platelet clumping seen. Impression: Erythrocytosis and thrombocytopenia. Causes of erythrocytosis include relative erythrocytosis due to dehydration, familial/congenital erythrocytosis, high affinity hemoglobin, cardiopulmonary disease or erythropoietin producing lesions including leiomyomata, hemangioblastoma and tumors of the kidney or liver amongst other causes. Correlation with clinical presentation, laboratory data (including oxygen saturation, EPO level) is suggested. If clinically indicated, testing for ION-2 mutation (and mutations involving CALR and MPL if JAK2 V617F and JAK2 exon 12 mutations are absent) may be helpful to rule out polycythemia vera or other myeloproliferative neoplasm. Interpreted By: Pavel Mckay MD 01/12/2024 07:53 CBC w/DIFF - eCW Reviewed date:01/12/2024 11:46:04 AM Interpretation: Performing Lab:[facility], [address] [place], [address] Notes/Report: WBC 6.3 3.5-10.5 10'3/uL RBC 5.97 (Based on documented legal sex) 4.30-5.80 10'6/uL HGB 19.2 (Based on documented legal sex) 13.0-17.5 g/dL HCT 56.8 (Based on documented legal sex) 38.0-50.0 % MCV 95.1 80.0-99.0 fL MCH 32.2 27.0-34.0 pg MCHC 33.8 32.0-35.5 g/dL RDW 14.0 11.0-15.0 % PLT 123 150-400 10'3/uL MPV 10.0 8.8-12.1 fL NRBC's 0.0 0.0 % Absolute NRBCs 0.0 No reference ran ge established 10'3/uL 01/11/2024 3:14 AM: P indicates partial results on a panel have been released. Additional results will follow. 01/11/2024 3:59 AM: This result has been final verified. No additional or changed results are expected. MICROALBUMIN, RANDOM URINE ( W/CREATININE) - eCW Reviewed date:12/05/2023 08:50:27 AM Interpretation: Performing Lab:[facility], [address] [place] [address], [id number] Notes/Report: R-No reference range established for this assay Microalbumin, Urine 1.6 0.0-1.8 mg/dL Creatinine, Urine 245.7 Microalbumin/Creatinin e Ratio 7 0-29 mg/g BLOOD SMEAR EXAM, with PATHO LOGIST REVIEW Reviewed date:01/12/2024 11:46:04 AM Interpretation: Performing Lab:[facility], [place], [address] Notes/Report: Platelet Morphology Normal RBC Morphology Reviewed Normal Neutrophils 56.0 34.0-73.0 % Lymphocytes 26.0 15.0-50.0 % Reactive Lymphocytes 5.0 Monocytes 12.0 1.0-15.0 % Eosinophils 1.0 0.0-8.0 % Basophils 0.0 0.0-2.0 % Absolute Neutrophils 3.5 1.5-8.0 10'3/uL Absolute Lymphocytes 1.6 1.0-4.0 10'3/uL Absolute Reactive Lymphocytes 0.3 Absolute Monocytes 0.8 0.2-1.0 10'3/uL Absolute Eosinophils 0.1 0.0-0.6 10'3/uL Absolute Basophils 0.0 0.0-0.3 10'3/uL Polychromasia Moderate (none) TSH - eCW Reviewed date:12/30/2023 05:43:20 PM Interpretation: Performing Lab:[facility], [address] [place] [address], [id number] Notes/Report: TSH 2.43 0.30-5.33 uIU/mL LIPID PANEL WITH LDL-CALC (Lainey MA) -eCW Reviewed date:12/30/2023 05:43:20 PM Interpretation: Performing Lab:[facility], [address] [place] [address], [address] Notes/Report: Total Cholesterol 204 0-199 mg/dL Triglycerides 398 0-150 mg/dL NCEP Reference Values for Triglycerides: Normal: <150 mg/dL Borderline High: 150 - 199 mg/dL High: 200 - 499 mg/dL Very High: >/= 500 mg/dL HDL Cholesterol 38 >40 mg/dL LDL Cholesterol 109 0-99 mg/dL Cutoff values recommended by the National Cholesterol Education Program: DESIRABLE: Cholesterol <200 mg/dL LDL <100 mg/dL BORDERLINE: Cholesterol 200-239 mg/dL LDL 101-159 mg/dL HIGHER RISK: Cholesterol >240 mg/dL LDL >160 mg/dL, HDL <40 mg/dL Non-HDL Cholesterol 166 No Reference Range mg/dL A reasonable goal for non-HDL cholesterol is one that is 30 mg/dL higher than the LDL cholesterol goal. CHOL/HDL Ratio 5.4 0.0-5.0 . On October 08, 2022, [facility] laboratories changed the equation for calculating estimated low-density lipoprotein-cholesterol (LDL-C) from the Friedewald equation to the Silver/Keren equation. This new equation is only valid for lipid panels with triglycerides < 400 mg/dL. Studies have demonstrated that this new equation will improve the accuracy of LDL-C, especially in scenarios when LDL-C concentrations are relatively low (< 100 mg/dL), triglycerides are elevated, or patient is non-fasting. References: - Negro Sheppard, Candido Johnson, Chinyere Stock, Juan F Lai, Juan F Singer, Jagjit Elaine, and Reg Johnson. 2013. Comparison of a Novel Method vs the Friedewald Equation for Estimating Low-Density Lipoprotein Cholesterol Levels from the Standard Lipid Profile. [place]: The Journal of the [place] [employer] 310 19): 2061-68. - Luke V, Sofie J, Ria A, Deon M, Almaz R, Winnie E, [place] RS, Alex SR, Silver SS. Fasting Versus Nonfasting and Low-Density Lipoprotein Cholesterol Accuracy. Circulation. 2018 Jun 17;137(1):10-19. HEMOGLOBIN A1C Reviewed date:12/30/2023 05:43:20 PM Interpretation: Performing Lab:[facility], [address] [place], [address] Notes/Report: Hemoglobin A1c 5.5 0-5.6 % The [place] [employer] recommends that a primary goal of therapy should be a HBA1C of < 7% and that physicians should reevaluate the treatment regimen in patients with HBA1C values consistently > 8%. <5.7% Normal 5.7 - 6.4% Increased risk for diabetes >=6.5% Diagnostic of diabetes <7.0% Goal of therapy >8.0% Action suggested COMP METABOLIC PANEL - eCW Reviewed date:12/30/2023 05:43:20 PM Interpretation: Performing Lab:[facility], [address] [place], [address] Notes/Report: Sodium 138 133-146 mmol/L Potassium 4.1 3.5-5.1 mmol/L Chloride 102 98-107 mmol/L Carbon Dioxide 30 21-31 mmol/L Blood Urea Nitrogen 17 7-25 mg/dL Creatinine 1.17 0.60-1.30 mg/dL Calcium 9.9 8.3-10.5 mg/dL Glucose 103 70-100 mg/dL Protein, Total 7.1 6.4-8.3 g/dL Albumin 4.7 3.5-5.0 g/dL ALT 101 11-51 units/L Alkaline Phosphatase 51 34-104 units/L AST 48 13-39 units/L Bilirubin, Total 1.4 0.2-1.2 mg/dL Anion Gap 6 4-13 mmol/L eGFRcr (CKD-EPI 2020) 76 >=60 mL/mi n/1.73 m2 CBC w/DIFF - eCW Reviewed date:12/30/2023 05:43:20 PM Interpretation: Performing Lab:[facility], [address] [place], [address] Notes/Report: 12/30/2023 8:16 AM: P indicates partial results on a panel have been released. Additional results will follow. 12/30/2023 8:16 AM: This result has been final verified. No additional or changed results are expected. WBC 6.3 3.5-10.5 10'3/uL RBC 5.76 (Based on documented legal sex) 4.30-5.80 10'6/uL HGB 18.5 (Based on documented legal sex) 13.0-17.5 g/dL HCT 55.1 (Based on documented legal sex) 38.0-50.0 % MCV 95.7 80.0-99.0 fL MCH 32.1 27.0-34.0 pg MCHC 33.6 32.0-35.5 g/dL RDW 14.6 11.0-15.0 % PLT 122 150-400 10'3/uL MPV 9.7 8.8-12.1 fL NRBC's 0.0 0.0 % Absolute NRBCs 0.0 No reference ran ge established 10'3/uL Neutrophils 61.2 34.0-73.0 % Lymphocytes 24.3 15.0-50.0 % Monocytes 12.0 1.0-15.0 % Eosinophils 1.4 0.0-8.0 % Basophils 0.5 0.0-2.0 % Absolute Neutrophils 3.9 1.5-8.0 10'3/uL Absolute Lymphocytes 1.5 1.0-4.0 10'3/uL Absolute Monocytes 0.8 0.2-1.0 10'3/uL Absolute Eosinophils 0.1 0.0-0.6 10'3/uL Absolute Basophils 0.0 0.0-0.3 10'3/uL Immature Granulocytes 0.6 No defined reference range % Absolute Immature Granulocytes 0.0 0.00-0.10 10'3/uL Reason For Referral No Information Medications Medication SIG (Take, Route, Frequency, Duration) Notes Start Date End Date Status Telmisartan 40 MG 1.5 tablets Orally Once a day for 90 days Supervising MD: Dr. Jag Loja; prior PCP before he established in [facility] (recently moved). Active Atorvastatin Calcium 10 MG 1 tablet Orally Once a day for 90 days Supervising MD: Dr. Jag Loja; prior PCP before he established in [facility] (recently moved). Active cloNIDine HCl 0.1 MG 1 tablet Orally twice a day for 90 days Supervising MD: Dr. Jag Loja; prior PCP before he established in [facility] (recently moved). Active Chlorthalidone 25 MG 0.5 tablet in the morning with food Orally Once daily for 60 days Active Problems Problem Type SNOMED Code ICD Code Onset Dates Problem Status W/U Status Risk Notes Problem 132969430 Other obesity du e to excess calories (E66.09) Active confirmed Problem 588739288 Overweight (E66.3) Active confirmed Problem 988706446 Mixed hyperlipidemia (E78.2) Active confirmed Problem Vitamin D deficiency (33905831) Vitamin D deficiency (E55.9) Active confirmed Problem Hypertension (02748361) Hypertension (I10) Active confirmed Problem 96629478 Essential hypertension (I10) Active confirmed Problem Gallstones (478168493) Gallstones (K80.20) Active confirmed Problem Fatty liver (049842408) Fatty liver (K76.0) Active confirmed Problem 698958910 Thrombocytopenia (D69.6) Active confirmed Problem 624051138 High triglycerid es (E78.1) Active confirmed Problem Body mass index 30+ - obesity (957162841) Body mass index (BMI) of 31.0-31.9 in adult (Z68.31) Active confirmed Problem 24433552 Left ventricular hypertrophy (I51.7) Active confirmed Problem 033909437 Body mass index [BMI] 36.0-36.9, adult (Z68.36) Active confirmed Problem 68654795 Serum calcium elevated (E83.52) Active confirmed Problem 881011044 Hypertensive crisis (I16.9) Active confirmed Problem 000714936 Erythrocytosis (D75.1) Active confirmed Problem 7679117612 NAFLD (nonalcoholic fatty liver disease) (K76.0) Active confirmed Problem Thrombocytopenic disorder (229871973) Low platelet count (D69.6) Active confirmed Vital Signs Heart Rate 73 /min 02/05/2024 BODY FAT% 22.8 MUSCLE IBS: 113.5 Temperature 98.3 degrees Fahrenheit 02/05/2024 BODY FAT% 22.8 MUSCLE IBS: 113.5 Respiratory Rate 18 /min 02/05/2024 BODY FAT% 22.8 MUSCLE IBS: 113.5 Oximetry 98 % 02/05/2024 BODY FAT% 22.8 MUSCLE IBS: 113.5 Blood pressure diastolic 88 mm Hg 02/05/2024 BODY FAT% 22.8 MUSCLE IBS: 113.5 Height 71 in 02/10/2024 Blood pressure systolic 128 mm Hg 02/05/2024 BODY FAT% 22.8 MUSCLE IBS: 113.5 Weight 251.8 lbs 02/05/2024 BODY FAT% 22.8 MUSCLE IBS: 113.5 BMI 35.12 kg/m2 02/05/2024 BODY FAT% 22.8 MUSCLE IBS: 113.5 Encounters Encounter Location Date Provider Diagnosis [address] [address] 11/28/2023 Amber Gallegos Essential hypertensi on I10 and Medication management Z79.[address] [address] 12/01/2023 Vandana Zepeda Other obesity due to excess calories E66.09 ; Essential (primary) hypertension I10 ; Body mass index [BMI] 36.0-36.9, adult Z68.36 and Nutritional counseling Z71.[address] [address] 12/26/2023 Amber Gallegos Essential (primary) hypertension I10 [address] [address] 12/29/2023 Caleb Pagan Encounter for genera l adult medical examination without abnormal findings Z00.00 ; Encounter for screening for other disorder Z13.89 ; Other obesity due to excess calories E66.09 ; Venous stasis dermatitis of both lower extremities I87.2 ; Body mass index (BMI) of 31.0-31.9 in adult Z68.31 ; Overweight E66.3 and Other problems related to lifestyle Z72.[address] [address] 01/05/2024 Amber Gallegos Encounter to discuss test results Z71.2 ; Long-term current use of testosterone cypionate Z79.890 ; Essential (primary) hypertension I10 ; Mixed hyperlipidemia E78.2 ; High triglycerides E78.1 and Thrombocytopenia D69.[address] [address] 01/07/2024 JAG TERESITA Overweight E66.3 ; F atty liver K76.0 and Vitamin D deficiency E55.[address] [address] 01/10/2024 JAG TERESITA Routine general medi oral examination at a health care facility Z00.[address] [address] 01/22/2024 JAG TERESITA Overweight E66.3 ; F atty liver K76.0 ; Hypertension I10 and Mixed hyperlipidemia E78.[address] [address] 01/27/2024 Mynor Reid Mixed hyperlipidemia E78.2 ; Essential hypertension I10 ; Low platelet count D69.6 and Elevated LFTs R79.[address] [address] 02/05/2024 JAG TERESITA Fatty liver K76.0 ; Hypertension I10 ; Essential hypertension I10 and High triglycerides E78.[address] [address] 02/05/2024 Mynor Reid NAFLD (nonalcoholic fatty liver disease) K76.[address] [address] 02/10/2024 Niru Nick Mixed hyperlipidemi a E78.2 ; Essential hypertension I10 ; Low platelet count D69.6 ; Elevated LFTs R79.89 and High triglycerides E78.[address] [address] 02/24/2024 JAG TERESITA Mixed hyperlipidemia E78.2 Sandi Carrizales [address] [address] 02/27/2024 Mynor Reid Essential hypertensi on I10 ; Mixed hyperlipidemia E78.2 and Thrombocytopenia D69.[address] [address] 03/22/2024 Amber [facility] without abnormal findings Z00.00 ; Encounter for medication review Z79.899 ; Thrombocytopenia D69.6 and Erythrocytosis D75.[address] [address] 07/07/2024 Mynor Reid Essential hypertensi on I10 ; Mixed hyperlipidemia E78.2 ; Elevated LFTs R79.89 and Medication management Z79.[address] [address] 08/08/2024 Amber Gallegos Essential (primary) hypertension I10 ; Medication management Z79.899 and Persons encountering health services in other specified circumstances Z76.[address] [address] 11/28/2023 Sandienzo Carrizales [address] [place] [address] 12/26/[address] [address] 12/30/[address] [address] 01/12/2024 JAG TERESITA [address] [address] 01/28/2024 Sandi Carrizales [address] [place] [address] 02/02/2024 JAG TERESITA [address] [address] 02/03/[address] [address] 02/17/[address] [address] 03/16/[address] [address] 06/30/2024 Sandi Carrizales [address] [place] [address] 08/07/[address] [address] 12/25/[address] [address] 01/07/2024 JAG TERESITA Assessments Encounter Date Diagnosis (ICD Code) Assessment Notes Treatment Notes Treatment Clinical Notes Section Notes 11/28/2023 Essential hypertension (ICD-10 - I10) Pt requesting courtesy refill prior to appointment this coming friday (3 days). Reviewed prior notes, meds, allergies, visits. Will send courtesy refill of telmisartan 60mg (40mg 1.5tabs) to pharmacy x7days. Dear Amanuel, A courtesy refill of telmisartan has been sent to the pharmacy on file. Please ensure to keep your appointment next week for further medication management. Let us know if you have any issues! Sincerely, SINA [facility] [phone] 11/28/2023 Medication management (ICD-10 - Z79.899) Pt requesting courtesy refill prior to appointment this coming friday (3 days). Reviewed prior notes, meds, allergies, visits. Will send courtesy refill of telmisartan 60mg (40mg 1.5tabs) to pharmacy x7days. Ori Vital, A courtesy refill of telmisartan has been sent to the pharmacy on file. Please ensure to keep your appointment next week for further medication management. Let us know if you have any issues! Sincerely, SINA [facility] [phone] 12/01/2023 Other obesity due to excess calories (ICD-10 - E66.09) Clinical Data (Labs/X-ray): CLINICAL IMPRESSION: #HYPERTENSION -Pt here for B/P F/U. -Pt has been taking Telmisartan and Chlorthalidone as prescribed -No med side effects reported at the moment -Pt reports B/P runs 120-130/80-85 @ home -Pt denies DAVISON, Dizzness, edema, cp, numbness, tingling or any other s/s of HTN -Pt followed up with Dr Rojas [employer], consult notes pending -Pt is Not UTD with eye exams PLAN OF CARE: -Continue Telmisartan -Continue Chlorthalidone -F/U with [facility] Manager for eye exams -Redflags including risk for AR, Heart disease, CKD, DM discussed with the pt -Healthy eating and exercise encouraged -F/U 2 months-B/P and CMP Check -F/U sooner for any questions or concerns -Pt verbalized understanding 12/01/2023 Essential (primary) hypertension (ICD-10 - I10) Clinical Data (Labs/X-ray): CLINICAL IMPRESSION: #HYPERTENSION -Pt here for B/P F/U. -Pt has been taking Telmisartan and Chlorthalidone as prescribed -No med side effects reported at the moment -Pt reports B/P runs 120-130/80-85 @ home -Pt denies DAVISON, Dizzness, edema, cp, numbness, tingling or any other s/s of HTN -Pt followed up with Dr Rojas [employer], consult notes pending -Pt is Not UTD with eye exams PLAN OF CARE: -Continue Telmisartan -Continue Chlorthalidone -F/U with [facility] Manager for eye exams -Redflags including risk for AR, Heart disease, CKD, DM discussed with the pt -Healthy eating and exercise encouraged -F/U 2 months-B/P and CMP Check -F/U sooner for any questions or concerns -Pt verbalized understanding 12/26/2023 Essential (primary) hypertension (ICD-10 - I10) Pt has appointment in 3 days, telmisartan sent to cover until that visit. Reviewed prior notes, meds, allergies, encounters. Dear Amanuel, A 4 day supply of of telmisartan has been sent to the pharmacy on file. Please ensure to keep your appointment next week for further medication management. Let us know if you have any issues! Sincerely, SINA [facility] [phone] 12/29/2023 Encounter for general adult medical examination without abnormal findings (ICD-10 - Z00.00) Clinical Data (Labs/X-ray): PHQ: 0 CANDICE: 0 MEDICAL -48 y/o male here for annual exam; no acute complaints -ROS unremarkable -PE and vitals are normal - UTD on vaccinations - UTD on screenings PLAN: -Fasting wellness labs and STI testing completed today +a1c -F/U in 5 days for lab results -Repeat annual w/ fasting labs in 1 year Healthy lifestyle recommendations: - Encouraged regular exercise for at least 30 minutes x5 times per week - Recommend well balanced diet with plenty of fruits, vegetables, and whole grains - Incorporate fiber in daily diet (at least 21 to 25 grams a day for women and 30 to 38 grams a day for men) - Recommend water intake >64oz per day - Proper seat belt use, no texting and driving - Safe sex practices - Wear sunscreen of at least SPF 30 when outdoors. #VENOUS STASIS DERMATITIS pt requesting referral to dermatology plan; referral given to pt advised monitoring symptoms pt understood and agreeable to plan #FATTY LIVER DISEASE pt previously under care of GI specialist in [facility] would like referral to GI specialist PLAN: referral given to pt liver labs obtained refer to user experience analyst pt understood plan and agreeable Screening Guidelines Male 50-64 1. Alcohol misuse Annually : 2. Blood pressure: annually 3. Colorectal cancer: All adults, colonoscopy every 5 yrs. 4. T2DM: Pts w/ no SX and >135/80 mm Hg. Alteast every 3 years. Date last screened. 5. Depression; At routine exams 6. HIV: opt out- screening (age 15-65) Sexually active/drug use: 7. Lipid disorders: at least every 5 years. 8. Obesity At routine exams: 9. Syphilis Sexually active or drug use at routine exams: 10. Tuberculosis increased risk for infection: 11. Vision all adults at routine exam: Counselling 1. Diet and behaviors counseling: If hyperlipidemia and other known risk factors for CV and diet related chr disease. 2. Tobacco use and tobacco related disease: all adults 3. Aspirin for primary prevention of cardiovascular problems: 45 - 79 yrs when DX with risk fo CHD and benefits from decrease n heart attacks out weight risks of GI bleeding. 12/29/2023 Encounter for screening for other disorder (ICD-10 - Z13.89) Clinical Data (Labs/X-ray): PHQ: 0 CANDICE: 0 MEDICAL -48 y/o male here for annual exam; no acute complaints -ROS unremarkable -PE and vitals are normal - UTD on vaccinations - UTD on screenings PLAN: -Fasting wellness labs and STI testing completed today +a1c -F/U in 5 days for lab results -Repeat annual w/ fasting labs in 1 year Healthy lifestyle recommendations: - Encouraged regular exercise for at least 30 minutes x5 times per week - Recommend well balanced diet with plenty of fruits, vegetables, and whole grains - Incorporate fiber in daily diet (at least 21 to 25 grams a day for women and 30 to 38 grams a day for men) - Recommend water intake >64oz per day - Proper seat belt use, no texting and driving - Safe sex practices - Wear sunscreen of at least SPF 30 when outdoors. #VENOUS STASIS DERMATITIS pt requesting referral to dermatology plan; referral given to pt advised monitoring symptoms pt understood and agreeable to plan #FATTY LIVER DISEASE pt previously under care of GI specialist in [facility] would like referral to GI specialist PLAN: referral given to pt liver labs obtained refer to user experience analyst pt understood plan and agreeable Screening Guidelines Male 50-64 1. Alcohol misuse Annually : 2. Blood pressure: annually 3. Colorectal cancer: All adults, colonoscopy every 5 yrs. 4. T2DM: Pts w/ no SX and >135/80 mm Hg. Alteast every 3 years. Date last screened. 5. Depression; At routine exams 6. HIV: opt out- screening (age 15-65) Sexually active/drug use: 7. Lipid disorders: at least every 5 years. 8. Obesity At routine exams: 9. Syphilis Sexually active or drug use at routine exams: 10. Tuberculosis increased risk for infection: 11. Vision all adults at routine exam: Counselling 1. Diet and behaviors counseling: If hyperlipidemia and other known risk factors for CV and diet related chr disease. 2. Tobacco use and tobacco related disease: all adults 3. Aspirin for primary prevention of cardiovascular problems: 45 - 79 yrs when DX with risk fo CHD and benefits from decrease n heart attacks out weight risks of GI bleeding. 01/05/2024 Encounter to discuss test results (ICD-10 - Z71.2) Clinical Data (Labs/X-ray): CLINICAL IMPRESSION: #LAB REVIEW - 48yo male here via tele for lab review from annual physical - CBC = platelets 122 (L), Hgb 18.5 (H), Hct (55) - CMP = ALT 101 (H), AST 48 (H), total bilirubin 1.4 (H) - Lipids = TGLs 398 (H), LDL 109 (H), HDL 38 (L), total 204 (H) - TSH = wnl - A1c = 5.5%, wnl PLAN - Discussed in depth concern for polycythemia; pt states he is taking testosterone injections weekly due to low testosterone tested/managed at outside clinic. Expressed concern for rising Hgb/Hct since last CBC 3mo ago - Reviewed in depth risks associated with polycythemia including heart attacks/stroke; likely secondary to exogenous testosterone. Advised patient to HOLD or decrease testosterone dose - Repeat CBC and add peripheral smear to r/o other causes of polycythemia - Discussed elevated liver enzymes, reports known hx of NAFLD and has f/u with GI tomorrow -- prefers to defer further workup pertaining to NAFLD to GI at appt tomorrow. Advised on benefit of RUQ US and additional labs - Discussed cholesterol levels in depth; TGLs significantly elevated -- pt reports c/w prior hx and believes secondary to weight gain and diet. LDL and total cholesterol slightly elevated. - ASCVD risk = 5.7%, borderline. Given hx of poorly controlled HTN in the past and significantly elevated TGLs, recommended starting a low dose statin to decrease risk -- consider adding fenofibrate if no improvement to TGLs at next visit - Counseled on heart healthy diet and exercise to manage weight and cholesterol - Reviewed adverse effects of statins; has taken in the past and tolerated well - Red flags reviewed in depth; ER precautions given -- aware when to seek immediate care - F/u in 1 week to repeat cbc w/ peripheral smear to assess thrombocytopenia and polycythemia - F/u in 1mo for htn + hld visit, sooner if concerns arise .... Wellness Scheduled? Women's Wellness Scheduled?: Follow-up visit Scheduled?: Y/N PLAN AT NEXT VISIT: 01/05/2024 Long-term current use of testosterone cypionate (ICD-10 - Z79.890) Clinical Data (Labs/X-ray): CLINICAL IMPRESSION: #LAB REVIEW - 48yo male here via tele for lab review from annual physical - CBC = platelets 122 (L), Hgb 18.5 (H), Hct (55) - CMP = ALT 101 (H), AST 48 (H), total bilirubin 1.4 (H) - Lipids = TGLs 398 (H), LDL 109 (H), HDL 38 (L), total 204 (H) - TSH = wnl - A1c = 5.5%, wnl PLAN - Discussed in depth concern for polycythemia; pt states he is taking testosterone injections weekly due to low testosterone tested/managed at outside clinic. Expressed concern for rising Hgb/Hct since last CBC 3mo ago - Reviewed in depth risks associated with polycythemia including heart attacks/stroke; likely secondary to exogenous testosterone. Advised patient to HOLD or decrease testosterone dose - Repeat CBC and add peripheral smear to r/o other causes of polycythemia - Discussed elevated liver enzymes, reports known hx of NAFLD and has f/u with GI tomorrow -- prefers to defer further workup pertaining to NAFLD to GI at appt tomorrow. Advised on benefit of RUQ US and additional labs - Discussed cholesterol levels in depth; TGLs significantly elevated -- pt reports c/w prior hx and believes secondary to weight gain and diet. LDL and total cholesterol slightly elevated. - ASCVD risk = 5.7%, borderline. Given hx of poorly controlled HTN in the past and significantly elevated TGLs, recommended starting a low dose statin to decrease risk -- consider adding fenofibrate if no improvement to TGLs at next visit - Counseled on heart healthy diet and exercise to manage weight and cholesterol - Reviewed adverse effects of statins; has taken in the past and tolerated well - Red flags reviewed in depth; ER precautions given -- aware when to seek immediate care - F/u in 1 week to repeat cbc w/ peripheral smear to assess thrombocytopenia and polycythemia - F/u in 1mo for htn + hld visit, sooner if concerns arise .... Wellness Scheduled? Women's Wellness Scheduled?: Follow-up visit Scheduled?: Y/N PLAN AT NEXT VISIT: 01/07/2024 Overweight (ICD-10 - E66.3) CLINICAL IMPRESSION/PLAN OF CARE: 1. Overweight and Non-Alcoholic Fatty Liver Disease - Assessment: Requires monitoring of eating habits through a food journal and identification of areas for improvement. Incorporation of zone two cardio exercises for 30 minutes, two to three times a week, with a target heart rate of 120-140 beats per minute. Attendance at a mixed martial arts class at a nearby [facility] gym within the next two weeks. - Plan: Recommend maintaining a food journal. Prescribe zone two cardio exercises for 30 minutes, two to three times a week, with a target heart rate of 120-140 beats per minute. Suggest attending at least one mixed martial arts class at a nearby [facility] gym within the next two weeks. Schedule follow-up appointments every two weeks to monitor progress and provide support. A liver ultrasound (fibroscan) was ordered by his GI doctor and follow up with the liver specialist in January. Prescribe lipotropic complex (2 capsules daily with a meal) to support liver and gallbladder function. 2. Sedentary Lifestyle and Work-Related Stress - Assessment: Requires incorporation of more movement into daily routine and management of work-related stress. - Plan: Encourage finding ways to incorporate more movement into the daily routine, such as taking breaks from work to engage in physical activity. Discuss the importance of developing discipline in maintaining a healthy lifestyle and managing stress. Recommend exploring outdoor activities and hobbies outside of work to promote overall well-being. 3. Diet and Nutrition - Plan: Discuss various diet options and the importance of making gradual changes to dietary habits. Provide guidance on selecting healthier snack options and reducing the frequency of sugary treats. Emphasize the importance of maintaining a balanced diet to prevent muscle loss while focusing on fat loss. 4. Body Composition Monitoring - Plan: Inform the patient about the plan to acquire a body composition scanner in the clinic and the benefits of tracking body composition changes. Encourage the patient to continue weightlifting as part of their exercise routine to promote muscle gain and fat loss. Follow-up: - Schedule an in-person follow-up appointment in two weeks to review progress, discuss food journal findings, and provide further guidance on diet and exercise. - Obtain labs to check pancreas function and monitor liver health. 01/07/2024 Fatty liver (ICD-10 - K76.0) CLINICAL IMPRESSION/PLAN OF CARE: 1. Overweight and Non-Alcoholic Fatty Liver Disease - Assessment: Requires monitoring of eating habits through a food journal and identification of areas for improvement. Incorporation of zone two cardio exercises for 30 minutes, two to three times a week, with a target heart rate of 120-140 beats per minute. Attendance at a mixed martial arts class at a nearby [facility] gym within the next two weeks. - Plan: Recommend maintaining a food journal. Prescribe zone two cardio exercises for 30 minutes, two to three times a week, with a target heart rate of 120-140 beats per minute. Suggest attending at least one mixed martial arts class at a nearby [facility] gym within the next two weeks. Schedule follow-up appointments every two weeks to monitor progress and provide support. A liver ultrasound (fibroscan) was ordered by his GI doctor and follow up with the liver specialist in January. Prescribe lipotropic complex (2 capsules daily with a meal) to support liver and gallbladder function. 2. Sedentary Lifestyle and Work-Related Stress - Assessment: Requires incorporation of more movement into daily routine and management of work-related stress. - Plan: Encourage finding ways to incorporate more movement into the daily routine, such as taking breaks from work to engage in physical activity. Discuss the importance of developing discipline in maintaining a healthy lifestyle and managing stress. Recommend exploring outdoor activities and hobbies outside of work to promote overall well-being. 3. Diet and Nutrition - Plan: Discuss various diet options and the importance of making gradual changes to dietary habits. Provide guidance on selecting healthier snack options and reducing the frequency of sugary treats. Emphasize the importance of maintaining a balanced diet to prevent muscle loss while focusing on fat loss. 4. Body Composition Monitoring - Plan: Inform the patient about the plan to acquire a body composition scanner in the clinic and the benefits of tracking body composition changes. Encourage the patient to continue weightlifting as part of their exercise routine to promote muscle gain and fat loss. Follow-up: - Schedule an in-person follow-up appointment in two weeks to review progress, discuss food journal findings, and provide further guidance on diet and exercise. - Obtain labs to check pancreas function and monitor liver health. 01/10/2024 Routine general medical examination at a health care facility (ICD-10 - Z00.00) Patient for lab draw only 01/22/2024 Overweight (ICD-10 - E66.3) CLINICAL IMPRESSION/PLAN OF CARE: 1. Elevated Liver Enzymes and Minimal Fatty Liver - Assessment: He has elevated liver enzymes and minimal fatty liver. - Plan: Continue taking [employer] as it contains hepatoprotective ingredients (Vitamin E, selenium, milk thistle, NAC, and alpha-lipoic acid) and has shown improvement in his liver health. Monitor liver function through blood work and liver scans as needed. Discuss with primary liver doctor regarding the potential impact of testosterone replacement therapy on liver function. 2. Low Testosterone Levels - Assessment: He has low testosterone levels. - Plan: Continue current testosterone replacement therapy (200 mg/mL injection once a week) for now. Re-evaluate the need for testosterone replacement therapy in the context of liver health and potential alternative options. 3. Weight Management and Nutrition - Assessment: He requires support for weight management and nutrition. - Plan: Resume food journaling using his preferred leelee to track daily intake and monitor snacking habits. Encourage him to increase physical activity and develop a regular exercise routine. Follow up in two weeks to review food journal, discuss any challenges, and provide guidance on nutrition and meal planning. 4. Fatigue - Assessment: He experiences fatigue. - Plan: Encourage him to prioritize rest and sleep, especially after high-stress events such as work presentations. Monitor energy levels in the context of testosterone replacement therapy and overall health. 5. Discipline and Motivation - Plan: Support him in building discipline and maintaining motivation for lifestyle changes, including weight management, nutrition, and exercise. Schedule regular follow-ups to monitor progress and provide guidance as needed. 01/27/2024 Mixed hyperlipidemia (ICD-10 - E78.2) Clinical Data (Labs/X-ray): CLINICAL IMPRESSION: #HYPERTENSION - 48 year old male is seen in the clinic for a hypertension follow-up. - Patient reports taking chlorthalidone 12.5 mg and telmisartan 40 mg daily as prescribed. - He has not needed to use clonidine since his last visit. - Reports home BP readings are stable in 120's-130's. - Denies any side effects of medication, hypotension, lightheadedness, or dizziness. - Patient is asymptomatic at this time. - Denies any chest pain, headaches, dyspnea, palpitations, vision changes, or leg edema. - PE = unremarkable. - EKG = 08/2023. - CMP = LFTs elevated, Bili 1.4 H, Glucose 104, otherwise WNL. - Microalbumin = WNL 12/2023. PLAN: - Refilled both chlorthalidone and telmisartan. - Side effects of medication reviewed with patient (cough, angioedema). - Advised adequate fluid intake daily while on thiazide diuretic. - Continue to monitor BP daily at home. Record reading daily and bring data to follow-up visit for further evaluation. - Counseled patient regarding lifestyle modifications including: weight loss, reduced EtOH intake, DASH diet, reduced sodium intake, and moderate intensity aerobic exercise for 120-150 minutes per week. - Red flags of hypertension and when to seek emergent care discussed with patient. - Patient expressed verbal understanding of the entire above discussion and agreed to plan. - Follow-up in 3 months for medication refill, sooner as needed for symptoms or elevated blood pressure readings. #HYPERLIPIDEMIA - Patient with a history of hyperlipidemia is seen for medication refill. - Current Regimen = atorvastatin 10 mg (started ~4 weeks ago). - Patient reports taking atorvastatin daily as prescribed and tolerating the medication well. - Denies any myalgia or other side effects of medications today. - Lipid Panel = 12/2023 most recent --> TG 398 H, HDL 38 L, LDL 109 H, TC 204 H. - LFTs = ALT elevations (reports history of NAFLD). - Liver Elastography = fibrosis stage F0-1 (01/19/24). - ASCVD Risk = 5.9% (borderline). PLAN: - Refilled atorvastatin 10 mg, 30 days. If LDL at goal and TG stable, plan to extend refill at lab review visit. - Plan to repeat fasting lipid panel in 3 months. - Has F/U with hepatology (Dr. Antony Bennett) to review further workup for NAFLD and elevated LFTs. - Emphasized the importance of lifestyle modifications in addition to pharmacologic interventions with patient (weight loss, increased cardiovascular exercise, dietary modifications). - Red flags reviewed with patient. - All questions answered and addressed. - Patient expressed verbal understanding of entire above discussion and agreed to plan. - F/U for lab review in 1 week, sooner PRN. #LAB REVIEW - Patient is seen via telemedicine for a lab review. - Reviewed labs from 01/10/24 in detail with patient. - CBC = RBC 5.97 H, Hgb 19.2 H, Hct 56.8 H, PTLT 123 L, otherwise WNL. - Peripheral Smear = moderate polychromasia, otherwise WNL. - Currently on testosterone from online clinic. - Denies any headaches, vision changes, palpitations, or chest pain. PLAN: - Hold testosterone IM at this time, reassess CBC in 2-3 months to assess if RBC indices normalized without testosterone exogenously. - Repeat CBC today with citrate top to R/O pseudothrombocyto penia. - All questions and concerns addressed. - Patient expressed verbal understanding of the entire above discussion and agreed to plan. 01/27/2024 Essential hypertension (ICD-10 - I10) Clinical Data (Labs/X-ray): CLINICAL IMPRESSION: #HYPERTENSION - 48 year old male is seen in the clinic for a hypertension follow-up. - Patient reports taking chlorthalidone 12.5 mg and telmisartan 40 mg daily as prescribed. - He has not needed to use clonidine since his last visit. - Reports home BP readings are stable in 120's-130's. - Denies any side effects of medication, hypotension, lightheadedness, or dizziness. - Patient is asymptomatic at this time. - Denies any chest pain, headaches, dyspnea, palpitations, vision changes, or leg edema. - PE = unremarkable. - EKG = 08/2023. - CMP = LFTs elevated, Bili 1.4 H, Glucose 104, otherwise WNL. - Microalbumin = WNL 12/2023. PLAN: - Refilled both chlorthalidone and telmisartan. - Side effects of medication reviewed with patient (cough, angioedema). - Advised adequate fluid intake daily while on thiazide diuretic. - Continue to monitor BP daily at home. Record reading daily and bring data to follow-up visit for further evaluation. - Counseled patient regarding lifestyle modifications including: weight loss, reduced EtOH intake, DASH diet, reduced sodium intake, and moderate intensity aerobic exercise for 120-150 minutes per week. - Red flags of hypertension and when to seek emergent care discussed with patient. - Patient expressed verbal understanding of the entire above discussion and agreed to plan. - Follow-up in 3 months for medication refill, sooner as needed for symptoms or elevated blood pressure readings. #HYPERLIPIDEMIA - Patient with a history of hyperlipidemia is seen for medication refill. - Current Regimen = atorvastatin 10 mg (started ~4 weeks ago). - Patient reports taking atorvastatin daily as prescribed and tolerating the medication well. - Denies any myalgia or other side effects of medications today. - Lipid Panel = 12/2023 most recent --> TG 398 H, HDL 38 L, LDL 109 H, TC 204 H. - LFTs = ALT elevations (reports history of NAFLD). - Liver Elastography = fibrosis stage F0-1 (01/19/24). - ASCVD Risk = 5.9% (borderline). PLAN: - Refilled atorvastatin 10 mg, 30 days. If LDL at goal and TG stable, plan to extend refill at lab review visit. - Plan to repeat fasting lipid panel in 3 months. - Has F/U with hepatology (Dr. Antony Bennett) to review further workup for NAFLD and elevated LFTs. - Emphasized the importance of lifestyle modifications in addition to pharmacologic interventions with patient (weight loss, increased cardiovascular exercise, dietary modifications). - Red flags reviewed with patient. - All questions answered and addressed. - Patient expressed verbal understanding of entire above discussion and agreed to plan. - F/U for lab review in 1 week, sooner PRN. #LAB REVIEW - Patient is seen via telemedicine for a lab review. - Reviewed labs from 01/10/24 in detail with patient. - CBC = RBC 5.97 H, Hgb 19.2 H, Hct 56.8 H, PTLT 123 L, otherwise WNL. - Peripheral Smear = moderate polychromasia, otherwise WNL. - Currently on testosterone from online clinic. - Denies any headaches, vision changes, palpitations, or chest pain. PLAN: - Hold testosterone IM at this time, reassess CBC in 2-3 months to assess if RBC indices normalized without testosterone exogenously. - Repeat CBC today with citrate top to R/O pseudothrombocyto penia. - All questions and concerns addressed. - Patient expressed verbal understanding of the entire above discussion and agreed to plan. 02/05/2024 NAFLD (nonalcoholic fatty liver disease) (ICD-10 - K76.0) Patient seen by GI on #NAFLD - 48 y/o male w/ h/o NAFLD seen to F/U after FibroScan. - FibroScan 01/19/24: S0/F0-1. - Labs 01/2024: AST 42, ALT 82. - Labs 12/2023: AST 48, ALT 101. - Labs 08/2022: AST 62, ALT 144. - Liver Bx 2018: NAFLD, chronic liver disease workup negative. - RUQ U/S: Mild hepatomegaly, moderate steatosis. - Extensive workup negative for underlying liver disease and thought to be 2/2 NAFLD / metabolic syndrome. - Reassured by FibroScan results and improvement of LFTs s/p 4 weeks of diet and statin therapy. - Hold supplement. - Continue stating as prescribed. - Reviewed diet / lifestyle measures for NAFLD. - Increase Cardio. EtOH in moderation. - Colonoscopy 01/2021: Hyperplastic Polyp --> screening due 2030. PLAN: - REPEAT LABS IN 3 MONTHS (CMP, LIPID PANEL). - CONSIDER GLP-1. --- - Reviewed GI Notes. Patient notified via agusto. - Dear Amanuel, this is [facility]. We received a copy of your office visit notes from GI / Liver specialist and reviewed them. We have put the records in your chart for future reference. Have a wonderful day! Best Regards, SINA Lowe. 02/10/2024 Mixed hyperlipidemia (ICD-10 - E78.2) Clinical Data (Labs/X-ray): CLINICAL IMPRESSION: #LAB REVIEW # LOW PLATELETS referral to commercial lawn specialist emailed to pt has always had low platelets for several years, has never been worked up testosterone on hold given abnormal CBC, may consider restarting pending heme consult #HYPERLIPIDEMIA TG still elevated dw pt starting fenofibrate given work up for fatty liver and possible adverse effects would want to make sure ok prior to restarting pt is also part of [facility] so may also help decrease levels - Patient with a history of hyperlipidemia is seen for medication refill. - Current Regimen = atorvastatin 10 mg has been on for over a month - Patient reports taking atorvastatin daily as prescribed and tolerating the medication well. - Denies any myalgia or other side effects of medications today. #ELEVATED LFT/FATTY LIVER just saw GI and was told fatty liver percentage was low and he was advised lifestyle changes of diet and exercise #BLE lesions saw derm saw [employer], and BLE benign scarring of legs,no concern for cancer, mainly just capillary leaking, was given steroid cream has fu with them in a couple of weeks more cosmetic nothing that concerning PLAN: - Emphasized the importance of lifestyle modifications in addition to pharmacologic interventions with patient (weight loss, increased cardiovascular exercise, dietary modifications). - Red flags reviewed with patient. - All questions answered and addressed. - Patient expressed verbal understanding of entire above discussion and agreed to plan. - F/U for lab review in 1 week, sooner PRN. PLAN: - refill statin x 1 month -consider adding fenofibrate (low dose) if ok/cleared by GI given adverse reaction of increase in hepaitis or fatty liver, pt reports he tolerated in the past, would like to hold off given levels are trending down at this time - All questions and concerns addressed. - Patient expressed verbal understanding of the entire above discussion and agreed to plan NEXT VISIT NV: reassess lipids in 6-8 weeks, consider adding an agent vs increasing statin d/w pt risk of uncontrolled lipids and risk for heart disease, stroke and diabetes 02/05/2024 Fatty liver (ICD-10 - K76.0) CLINICAL IMPRESSION/PLAN OF CARE: 1. Obesity - Assessment: BMI 35, current weight 251.8 lbs (down 5 lbs from last visit), body fat 22.8%, muscle mass 113.5 lbs. - Plan: Continue monitoring weight, body fat percentage, and muscle mass monthly. Encourage patient to maintain calorie intake around 2,500 or lower, focus on portion control and increasing protein to 30-40 grams per meal. Encourage gradual increase in physical activity as tolerated. 2. Inadequate Protein Intake - Assessment: Inadequate protein intake for muscle mass and overall health. - Plan: Educate on importance of protein. Recommend incorporating fresh meat, protein shakes, and bars to increase intake. Reassess in two weeks. Advised larger protein portions, aiming for 30-40 grams per meal. 3. Sedentary Lifestyle - Assessment: Sedentary lifestyle. - Plan: Encourage gradual increase in physical activity as tolerated. Discuss importance of balancing healthy eating and exercise. Monitor progress and provide support during biweekly/monthly check-ins. Patient currently limited due to 's health issues. 4. Improved Liver Panel - Assessment: Recent liver panel showed improvement in numbers. - Plan: Continue monitoring liver enzymes through CMP. Reinforce importance of healthy diet and lifestyle for liver health. Follow-up: Schedule follow-up in two weeks to discuss progress and concerns. Transition to monthly check-ins once comfortable with progress and routine. Patient prefers in-person visits. 02/24/2024 Mixed hyperlipidemia (ICD-10 - E78.2) 02/27/2024 Mixed hyperlipidemia (ICD-10 - E78.2) Assessment: #LAB REVIEW - Patient is seen via telemedicine for an annual lab review. - Reviewed labs from 02/24/24 in detail with patient. - CBC = PLT 129 L, otherwise WNL. - CMP = Glucose 122 H, ALT 11 H, AST 48, otherwise WNL. - Lipid Panel = TC 168, LDL 89, TG 273 H (decreased from 291), HDL 43. - Saw GI, NAFLD. FibroScan S0/F0-1. - Has pending appointment with commercial lawn specialist in 03/2024. - He is asymptomatic at this time. Denies any RUQ / abdominal pain, jaundice, scleral icterus, easy bruising, or bleeding that does not clot. - Elevated RBCs / Hgb / HCT resolved with holding exogenous testosterone. PLAN: - Refilled statin. - Refilled chlorthalidone and telmisartan. - Recommended starting OTC omega-3 fatty acid for hypertriglyceride eloise. - Continue lifestyle modifications (dietary changes and increased cardiovascular exercise) for elevated cholesterol levels. - Continue to see naturopathy to discuss diet and lifestyle modifications for elevated triglycerides and weight management. - Discussed starting GLP-1, patient declined and preferred to continue with diet and exercise at this time. - All questions and concerns addressed. - Patient expressed verbal understanding of the entire above discussion and agreed to plan. 02/27/2024 Essential hypertension (ICD-10 - I10) Assessment: #LAB REVIEW - Patient is seen via telemedicine for an annual lab review. - Reviewed labs from 02/24/24 in detail with patient. - CBC = PLT 129 L, otherwise WNL. - CMP = Glucose 122 H, ALT 11 H, AST 48, otherwise WNL. - Lipid Panel = TC 168, LDL 89, TG 273 H (decreased from 291), HDL 43. - Saw GI, NAFLD. FibroScan S0/F0-1. - Has pending appointment with commercial lawn specialist in 03/2024. - He is asymptomatic at this time. Denies any RUQ / abdominal pain, jaundice, scleral icterus, easy bruising, or bleeding that does not clot. - Elevated RBCs / Hgb / HCT resolved with holding exogenous testosterone. PLAN: - Refilled statin. - Refilled chlorthalidone and telmisartan. - Recommended starting OTC omega-3 fatty acid for hypertriglyceride eloise. - Continue lifestyle modifications (dietary changes and increased cardiovascular exercise) for elevated cholesterol levels. - Continue to see naturopathy to discuss diet and lifestyle modifications for elevated triglycerides and weight management. - Discussed starting GLP-1, patient declined and preferred to continue with diet and exercise at this time. - All questions and concerns addressed. - Patient expressed verbal understanding of the entire above discussion and agreed to plan. 03/22/2024 Encounter for general adult medical examination without abnormal findings (ICD-10 - Z00.00) Received and reviewed notes from hematology consult. Hx of chronic mild thrombocytopenia, 110s-120s. Asymptomatic. Hematology plan for repeat cbc, HIV, hepatitis panel, b12, folate, copper levels; check EPO and MPN panel. Dear Amanuel, We have received the results from your recent visit with hematology (Dr Muir). These notes have been scanned to your chart for future reference. Have a great day! Sincerely, SINA Clark [facility] [phone] 03/22/2024 Encounter for medication review (ICD-10 - Z79.899) Received and reviewed notes from hematology consult. Hx of chronic mild thrombocytopenia, 110s-120s. Asymptomatic. Hematology plan for repeat cbc, HIV, hepatitis panel, b12, folate, copper levels; check EPO and MPN panel. Dear Amanuel, We have received the results from your recent visit with hematology (Dr Muir). These notes have been scanned to your chart for future reference. Have a great day! Sincerely, SINA Clark [facility] [phone] 07/07/2024 Mixed hyperlipidemia (ICD-10 - E78.2) Assessment: #HYPERTENSION - 49 year old male is seen virtually (approved per last altamirano) for a hypertension follow-up. - Patient recently moved from [place] to [facility] and has not established with new PCP [...] to plan. - Follow-up with PCP in [facility] when established, sooner as needed for symptoms or elevated blood pressure readings. #HYPERLIPIDEMIA - 49 year old male with a history of hyperlipidemia is virtually (approved per altamirano) for a cholesterol refill. - Patient recently moved from [place] to [facility] and has not established with new PCP [...] to plan. - Follow-up with PCP in [facility] when established, sooner PRN. 07/07/2024 Essential hypertension (ICD-10 - I10) Assessment: #HYPERTENSION - 49 year old male is seen virtually (approved per ) for a hypertension follow-up. - Patient recently moved from [place] to [facility] and has not established with new PCP [...] to plan. - Follow-up with PCP in [facility] when established, sooner as needed for symptoms or elevated blood pressure readings. #HYPERLIPIDEMIA - 49 year old male with a history of hyperlipidemia is virtually (approved per last altamirano) for a cholesterol refill. - Patient recently moved from [place] to [facility] and has not established with new PCP [...] to plan. - Follow-up with PCP in [facility] when established, sooner PRN. 08/08/2024 Essential (primary) hypertension (ICD-10 - I10) Reviewed prior notes/encounters -- patient moved to [facility] from [place] and searching for new PCP. Was managed [...] Have a great day! Sincerely, SINA Clark [facility] [phone] 08/08/2024 Medication management (ICD-10 - Z79.899) Reviewed prior notes/encounters -- patient moved to [facility] from [place] and searching for new PCP. Was managed [...] Have a great day! Sincerely, SINA Clark [facility] [phone] 08/08/2024 Persons encountering health services in other specified circumstances (ICD-10 - Z76.89) Reviewed prior notes/encounters -- patient moved to [facility] from [place] and searching for new PCP. Was managed [...] Have a great day! Sincerely, SINA Clark [facility] [phone] 02/10/2024 Low platelet count (ICD-10 - D69.6) Clinical Data (Labs/X-ray): CLINICAL IMPRESSION: #LAB REVIEW # LOW PLATELETS referral to commercial lawn specialist emailed to pt has always had low platelets for several years, has never been worked up testosterone on hold given abnormal CBC, may consider restarting pending heme consult #HYPERLIPIDEMIA TG still elevated dw pt starting fenofibrate given work up for fatty liver and possible adverse effects would want to make sure ok prior to restarting pt is also part of [facility] so may also help decrease levels - Patient with a history of hyperlipidemia is seen for medication refill. - Current Regimen = atorvastatin 10 mg has been on for over a month - Patient reports taking atorvastatin daily as prescribed and tolerating the medication well. - Denies any myalgia or other side effects of medications today. #ELEVATED LFT/FATTY LIVER just saw GI and was told fatty liver percentage was low and he was advised lifestyle changes of diet and exercise #BLE lesions saw derm saw [employer], and BLE benign scarring of legs,no concern for cancer, mainly just capillary leaking, was given steroid cream has fu with them in a couple of weeks more cosmetic nothing that concerning PLAN: - Emphasized the importance of lifestyle modifications in addition to pharmacologic interventions with patient (weight loss, increased cardiovascular exercise, dietary modifications). - Red flags reviewed with patient. - All questions answered and addressed. - Patient expressed verbal understanding of entire above discussion and agreed to plan. - F/U for lab review in 1 week, sooner PRN. PLAN: - refill statin x 1 month -consider adding fenofibrate (low dose) if ok/cleared by GI given adverse reaction of increase in hepaitis or fatty liver, pt reports he tolerated in the past, would like to hold off given levels are trending down at this time - All questions and concerns addressed. - Patient expressed verbal understanding of the entire above discussion and agreed to plan NEXT VISIT NV: reassess lipids in 6-8 weeks, consider adding an agent vs increasing statin d/w pt risk of uncontrolled lipids and risk for heart disease, stroke and diabetes 07/07/2024 Elevated LFTs (ICD-10 - R79.89) Assessment: #HYPERTENSION - 49 year old male is seen virtually (approved per last altamirano) for a hypertension follow-up. - Patient recently moved from [place] to [facility] and has not established with new PCP [...] to plan. - Follow-up with PCP in [facility] when established, sooner as needed for symptoms or elevated blood pressure readings. #HYPERLIPIDEMIA - 49 year old male with a history of hyperlipidemia is virtually (approved per last altamirano) for a cholesterol refill. - Patient recently moved from [place] to [facility] and has not established with new PCP [...] to plan. - Follow-up with PCP in [facility] when established, sooner PRN. 03/22/2024 Thrombocytopenia (ICD-10 - D69.6) Received and reviewed notes from hematology consult. Hx of chronic mild thrombocytopenia, 110s-120s. Asymptomatic. Hematology plan for repeat cbc, HIV, hepatitis panel, b12, folate, copper levels; check EPO and MPN panel. Dear Amanuel, We have received the results from your recent visit with hematology (Dr Muir). These notes have been scanned to your chart for future reference. Have a great day! Sincerely, SINA Clark [facility] [phone] 02/27/2024 Thrombocytopenia (ICD-10 - D69.6) Assessment: #LAB REVIEW - Patient is seen via telemedicine for an annual lab review. - Reviewed labs from 02/24/24 in detail with patient. - CBC = PLT 129 L, otherwise WNL. - CMP = Glucose 122 H, ALT 11 H, AST 48, otherwise WNL. - Lipid Panel = TC 168, LDL 89, TG 273 H (decreased from 291), HDL 43. - Saw GI, NAFLD. FibroScan S0/F0-1. - Has pending appointment with commercial lawn specialist in 03/2024. - He is asymptomatic at this time. Denies any RUQ / abdominal pain, jaundice, scleral icterus, easy bruising, or bleeding that does not clot. - Elevated RBCs / Hgb / HCT resolved with holding exogenous testosterone. PLAN: - Refilled statin. - Refilled chlorthalidone and telmisartan. - Recommended starting OTC omega-3 fatty acid for hypertriglyceride eloise. - Continue lifestyle modifications (dietary changes and increased cardiovascular exercise) for elevated cholesterol levels. - Continue to see naturopathy to discuss diet and lifestyle modifications for elevated triglycerides and weight management. - Discussed starting GLP-1, patient declined and preferred to continue with diet and exercise at this time. - All questions and concerns addressed. - Patient expressed verbal understanding of the entire above discussion and agreed to plan. 01/22/2024 Fatty liver (ICD-10 - K76.0) CLINICAL IMPRESSION/PLAN OF CARE: 1. Elevated Liver Enzymes and Minimal Fatty Liver - Assessment: He has elevated liver enzymes and minimal fatty liver. - Plan: Continue taking [employer] as it contains hepatoprotective ingredients (Vitamin E, selenium, milk thistle, NAC, and alpha-lipoic acid) and has shown improvement in his liver health. Monitor liver function through blood work and liver scans as needed. Discuss with primary liver doctor regarding the potential impact of testosterone replacement therapy on liver function. 2. Low Testosterone Levels - Assessment: He has low testosterone levels. - Plan: Continue current testosterone replacement therapy (200 mg/mL injection once a week) for now. Re-evaluate the need for testosterone replacement therapy in the context of liver health and potential alternative options. 3. Weight Management and Nutrition - Assessment: He requires support for weight management and nutrition. - Plan: Resume food journaling using his preferred leelee to track daily intake and monitor snacking habits. Encourage him to increase physical activity and develop a regular exercise routine. Follow up in two weeks to review food journal, discuss any challenges, and provide guidance on nutrition and meal planning. 4. Fatigue - Assessment: He experiences fatigue. - Plan: Encourage him to prioritize rest and sleep, especially after high-stress events such as work presentations. Monitor energy levels in the context of testosterone replacement therapy and overall health. 5. Discipline and Motivation - Plan: Support him in building discipline and maintaining motivation for lifestyle changes, including weight management, nutrition, and exercise. Schedule regular follow-ups to monitor progress and provide guidance as needed. 02/10/2024 Essential hypertension (ICD-10 - I10) Clinical Data (Labs/X-ray): CLINICAL IMPRESSION: #LAB REVIEW # LOW PLATELETS referral to commercial lawn specialist emailed to pt has always had low platelets for several years, has never been worked up testosterone on hold given abnormal CBC, may consider restarting pending heme consult #HYPERLIPIDEMIA TG still elevated dw pt starting fenofibrate given work up for fatty liver and possible adverse effects would want to make sure ok prior to restarting pt is also part of [facility] so may also help decrease levels - Patient with a history of hyperlipidemia is seen for medication refill. - Current Regimen = atorvastatin 10 mg has been on for over a month - Patient reports taking atorvastatin daily as prescribed and tolerating the medication well. - Denies any myalgia or other side effects of medications today. #ELEVATED LFT/FATTY LIVER just saw GI and was told fatty liver percentage was low and he was advised lifestyle changes of diet and exercise #BLE lesions saw derm saw [employer], and BLE benign scarring of legs,no concern for cancer, mainly just capillary leaking, was given steroid cream has fu with them in a couple of weeks more cosmetic nothing that concerning PLAN: - Emphasized the importance of lifestyle modifications in addition to pharmacologic interventions with patient (weight loss, increased cardiovascular exercise, dietary modifications). - Red flags reviewed with patient. - All questions answered and addressed. - Patient expressed verbal understanding of entire above discussion and agreed to plan. - F/U for lab review in 1 week, sooner PRN. PLAN: - refill statin x 1 month -consider adding fenofibrate (low dose) if ok/cleared by GI given adverse reaction of increase in hepaitis or fatty liver, pt reports he tolerated in the past, would like to hold off given levels are trending down at this time - All questions and concerns addressed. - Patient expressed verbal understanding of the entire above discussion and agreed to plan NEXT VISIT NV: reassess lipids in 6-8 weeks, consider adding an agent vs increasing statin d/w pt risk of uncontrolled lipids and risk for heart disease, stroke and diabetes 01/27/2024 Low platelet count (ICD-10 - D69.6) Clinical Data (Labs/X-ray): CLINICAL IMPRESSION: #HYPERTENSION - 48 year old male is seen in the clinic for a hypertension follow-up. - Patient reports taking chlorthalidone 12.5 mg and telmisartan 40 mg daily as prescribed. - He has not needed to use clonidine since his last visit. - Reports home BP readings are stable in 120's-130's. - Denies any side effects of medication, hypotension, lightheadedness, or dizziness. - Patient is asymptomatic at this time. - Denies any chest pain, headaches, dyspnea, palpitations, vision changes, or leg edema. - PE = unremarkable. - EKG = 08/2023. - CMP = LFTs elevated, Bili 1.4 H, Glucose 104, otherwise WNL. - Microalbumin = WNL 12/2023. PLAN: - Refilled both chlorthalidone and telmisartan. - Side effects of medication reviewed with patient (cough, angioedema). - Advised adequate fluid intake daily while on thiazide diuretic. - Continue to monitor BP daily at home. Record reading daily and bring data to follow-up visit for further evaluation. - Counseled patient regarding lifestyle modifications including: weight loss, reduced EtOH intake, DASH diet, reduced sodium intake, and moderate intensity aerobic exercise for 120-150 minutes per week. - Red flags of hypertension and when to seek emergent care discussed with patient. - Patient expressed verbal understanding of the entire above discussion and agreed to plan. - Follow-up in 3 months for medication refill, sooner as needed for symptoms or elevated blood pressure readings. #HYPERLIPIDEMIA - Patient with a history of hyperlipidemia is seen for medication refill. - Current Regimen = atorvastatin 10 mg (started ~4 weeks ago). - Patient reports taking atorvastatin daily as prescribed and tolerating the medication well. - Denies any myalgia or other side effects of medications today. - Lipid Panel = 12/2023 most recent --> TG 398 H, HDL 38 L, LDL 109 H, TC 204 H. - LFTs = ALT elevations (reports history of NAFLD). - Liver Elastography = fibrosis stage F0-1 (01/19/24). - ASCVD Risk = 5.9% (borderline). PLAN: - Refilled atorvastatin 10 mg, 30 days. If LDL at goal and TG stable, plan to extend refill at lab review visit. - Plan to repeat fasting lipid panel in 3 months. - Has F/U with hepatology (Dr. Antony Bennett) to review further workup for NAFLD and elevated LFTs. - Emphasized the importance of lifestyle modifications in addition to pharmacologic interventions with patient (weight loss, increased cardiovascular exercise, dietary modifications). - Red flags reviewed with patient. - All questions answered and addressed. - Patient expressed verbal understanding of entire above discussion and agreed to plan. - F/U for lab review in 1 week, sooner PRN. #LAB REVIEW - Patient is seen via telemedicine for a lab review. - Reviewed labs from 01/10/24 in detail with patient. - CBC = RBC 5.97 H, Hgb 19.2 H, Hct 56.8 H, PTLT 123 L, otherwise WNL. - Peripheral Smear = moderate polychromasia, otherwise WNL. - Currently on testosterone from online clinic. - Denies any headaches, vision changes, palpitations, or chest pain. PLAN: - Hold testosterone IM at this time, reassess CBC in 2-3 months to assess if RBC indices normalized without testosterone exogenously. - Repeat CBC today with citrate top to R/O pseudothrombocyto penia. - All questions and concerns addressed. - Patient expressed verbal understanding of the entire above discussion and agreed to plan. 02/05/2024 Hypertension (ICD-10 - I10) CLINICAL IMPRESSION/PLAN OF CARE: 1. Obesity - Assessment: BMI 35, current weight 251.8 lbs (down 5 lbs from last visit), body fat 22.8%, muscle mass 113.5 lbs. - Plan: Continue monitoring weight, body fat percentage, and muscle mass monthly. Encourage patient to maintain calorie intake around 2,500 or lower, focus on portion control and increasing protein to 30-40 grams per meal. Encourage gradual increase in physical activity as tolerated. 2. Inadequate Protein Intake - Assessment: Inadequate protein intake for muscle mass and overall health. - Plan: Educate on importance of protein. Recommend incorporating fresh meat, protein shakes, and bars to increase intake. Reassess in two weeks. Advised larger protein portions, aiming for 30-40 grams per meal. 3. Sedentary Lifestyle - Assessment: Sedentary lifestyle. - Plan: Encourage gradual increase in physical activity as tolerated. Discuss importance of balancing healthy eating and exercise. Monitor progress and provide support during biweekly/monthly check-ins. Patient currently limited due to 's health issues. 4. Improved Liver Panel - Assessment: Recent liver panel showed improvement in numbers. - Plan: Continue monitoring liver enzymes through CMP. Reinforce importance of healthy diet and lifestyle for liver health. Follow-up: Schedule follow-up in two weeks to discuss progress and concerns. Transition to monthly check-ins once comfortable with progress and routine. Patient prefers in-person visits. 01/05/2024 Essential (primary) hypertension (ICD-10 - I10) Clinical Data (Labs/X-ray): CLINICAL IMPRESSION: #LAB REVIEW - 48yo male here via tele for lab review from annual physical - CBC = platelets 122 (L), Hgb 18.5 (H), Hct (55) - CMP = ALT 101 (H), AST 48 (H), total bilirubin 1.4 (H) - Lipids = TGLs 398 (H), LDL 109 (H), HDL 38 (L), total 204 (H) - TSH = wnl - A1c = 5.5%, wnl PLAN - Discussed in depth concern for polycythemia; pt states he is taking testosterone injections weekly due to low testosterone tested/managed at outside clinic. Expressed concern for rising Hgb/Hct since last CBC 3mo ago - Reviewed in depth risks associated with polycythemia including heart attacks/stroke; likely secondary to exogenous testosterone. Advised patient to HOLD or decrease testosterone dose - Repeat CBC and add peripheral smear to r/o other causes of polycythemia - Discussed elevated liver enzymes, reports known hx of NAFLD and has f/u with GI tomorrow -- prefers to defer further workup pertaining to NAFLD to GI at appt tomorrow. Advised on benefit of RUQ US and additional labs - Discussed cholesterol levels in depth; TGLs significantly elevated -- pt reports c/w prior hx and believes secondary to weight gain and diet. LDL and total cholesterol slightly elevated. - ASCVD risk = 5.7%, borderline. Given hx of poorly controlled HTN in the past and significantly elevated TGLs, recommended starting a low dose statin to decrease risk -- consider adding fenofibrate if no improvement to TGLs at next visit - Counseled on heart healthy diet and exercise to manage weight and cholesterol - Reviewed adverse effects of statins; has taken in the past and tolerated well - Red flags reviewed in depth; ER precautions given -- aware when to seek immediate care - F/u in 1 week to repeat cbc w/ peripheral smear to assess thrombocytopenia and polycythemia - F/u in 1mo for htn + hld visit, sooner if concerns arise .... Wellness Scheduled? Women's Wellness Scheduled?: Follow-up visit Scheduled?: Y/N PLAN AT NEXT VISIT: 01/07/2024 Vitamin D deficiency (ICD-10 - E55.9) CLINICAL IMPRESSION/PLAN OF CARE: 1. Overweight and Non-Alcoholic Fatty Liver Disease - Assessment: Requires monitoring of eating habits through a food journal and identification of areas for improvement. Incorporation of zone two cardio exercises for 30 minutes, two to three times a week, with a target heart rate of 120-140 beats per minute. Attendance at a mixed martial arts class at a nearby [facility] gym within the next two weeks. - Plan: Recommend maintaining a food journal. Prescribe zone two cardio exercises for 30 minutes, two to three times a week, with a target heart rate of 120-140 beats per minute. Suggest attending at least one mixed martial arts class at a nearby [facility] gym within the next two weeks. Schedule follow-up appointments every two weeks to monitor progress and provide support. A liver ultrasound (fibroscan) was ordered by his GI doctor and follow up with the liver specialist in January. Prescribe lipotropic complex (2 capsules daily with a meal) to support liver and gallbladder function. 2. Sedentary Lifestyle and Work-Related Stress - Assessment: Requires incorporation of more movement into daily routine and management of work-related stress. - Plan: Encourage finding ways to incorporate more movement into the daily routine, such as taking breaks from work to engage in physical activity. Discuss the importance of developing discipline in maintaining a healthy lifestyle and managing stress. Recommend exploring outdoor activities and hobbies outside of work to promote overall well-being. 3. Diet and Nutrition - Plan: Discuss various diet options and the importance of making gradual changes to dietary habits. Provide guidance on selecting healthier snack options and reducing the frequency of sugary treats. Emphasize the importance of maintaining a balanced diet to prevent muscle loss while focusing on fat loss. 4. Body Composition Monitoring - Plan: Inform the patient about the plan to acquire a body composition scanner in the clinic and the benefits of tracking body composition changes. Encourage the patient to continue weightlifting as part of their exercise routine to promote muscle gain and fat loss. Follow-up: - Schedule an in-person follow-up appointment in two weeks to review progress, discuss food journal findings, and provide further guidance on diet and exercise. - Obtain labs to check pancreas function and monitor liver health. 12/29/2023 Other obesity due to excess calories (ICD-10 - E66.09) Clinical Data (Labs/X-ray): PHQ: 0 CANDICE: 0 MEDICAL -48 y/o male here for annual exam; no acute complaints -ROS unremarkable -PE and vitals are normal - UTD on vaccinations - UTD on screenings PLAN: -Fasting wellness labs and STI testing completed today +a1c -F/U in 5 days for lab results -Repeat annual w/ fasting labs in 1 year Healthy lifestyle recommendations: - Encouraged regular exercise for at least 30 minutes x5 times per week - Recommend well balanced diet with plenty of fruits, vegetables, and whole grains - Incorporate fiber in daily diet (at least 21 to 25 grams a day for women and 30 to 38 grams a day for men) - Recommend water intake >64oz per day - Proper seat belt use, no texting and driving - Safe sex practices - Wear sunscreen of at least SPF 30 when outdoors. #VENOUS STASIS DERMATITIS pt requesting referral to dermatology plan; referral given to pt advised monitoring symptoms pt understood and agreeable to plan #FATTY LIVER DISEASE pt previously under care of GI specialist in [facility] would like referral to GI specialist PLAN: referral given to pt liver labs obtained refer to user experience analyst pt understood plan and agreeable Screening Guidelines Male 50-64 1. Alcohol misuse Annually : 2. Blood pressure: annually 3. Colorectal cancer: All adults, colonoscopy every 5 yrs. 4. T2DM: Pts w/ no SX and >135/80 mm Hg. Alteast every 3 years. Date last screened. 5. Depression; At routine exams 6. HIV: opt out- screening (age 15-65) Sexually active/drug use: 7. Lipid disorders: at least every 5 years. 8. Obesity At routine exams: 9. Syphilis Sexually active or drug use at routine exams: 10. Tuberculosis increased risk for infection: 11. Vision all adults at routine exam: Counselling 1. Diet and behaviors counseling: If hyperlipidemia and other known risk factors for CV and diet related chr disease. 2. Tobacco use and tobacco related disease: all adults 3. Aspirin for primary prevention of cardiovascular problems: 45 - 79 yrs when DX with risk fo CHD and benefits from decrease n heart attacks out weight risks of GI bleeding. 12/01/2023 Body mass index [BMI] 36.0-36.9, adult (ICD-10 - Z68.36) Clinical Data (Labs/X-ray): CLINICAL IMPRESSION: #HYPERTENSION -Pt here for B/P F/U. -Pt has been taking Telmisartan and Chlorthalidone as prescribed -No med side effects reported at the moment -Pt reports B/P runs 120-130/80-85 @ home -Pt denies DAVISON, Dizzness, edema, cp, numbness, tingling or any other s/s of HTN -Pt followed up with Dr Rojas [employer], consult notes pending -Pt is Not UTD with eye exams PLAN OF CARE: -Continue Telmisartan -Continue Chlorthalidone -F/U with [facility] for eye exams -Redflags including risk for AR, Heart disease, CKD, DM discussed with the pt -Healthy eating and exercise encouraged -F/U 2 months-B/P and CMP Check -F/U sooner for any questions or concerns -Pt verbalized understanding 12/01/2023 Nutritional counseling (ICD-10 - Z71.3) Clinical Data (Labs/X-ray): CLINICAL IMPRESSION: #HYPERTENSION -Pt here for B/P F/U. -Pt has been taking Telmisartan and Chlorthalidone as prescribed -No med side effects reported at the moment -Pt reports B/P runs 120-130/80-85 @ home -Pt denies DAVISON, Dizzness, edema, cp, numbness, tingling or any other s/s of HTN -Pt followed up with Dr Rojas [employer], consult notes pending -Pt is Not UTD with eye exams PLAN OF CARE: -Continue Telmisartan -Continue Chlorthalidone -F/U with [facility] for eye exams -Redflags including risk for AR, Heart disease, CKD, DM discussed with the pt -Healthy eating and exercise encouraged -F/U 2 months-B/P and CMP Check -F/U sooner for any questions or concerns -Pt verbalized understanding 12/29/2023 Venous stasis dermatitis of both lower extremities (ICD-10 - I87.2) Clinical Data (Labs/X-ray): PHQ: 0 CANDICE: 0 MEDICAL -48 y/o male here for annual exam; no acute complaints -ROS unremarkable -PE and vitals are normal - UTD on vaccinations - UTD on screenings PLAN: -Fasting wellness labs and STI testing completed today +a1c -F/U in 5 days for lab results -Repeat annual w/ fasting labs in 1 year Healthy lifestyle recommendations: - Encouraged regular exercise for at least 30 minutes x5 times per week - Recommend well balanced diet with plenty of fruits, vegetables, and whole grains - Incorporate fiber in daily diet (at least 21 to 25 grams a day for women and 30 to 38 grams a day for men) - Recommend water intake >64oz per day - Proper seat belt use, no texting and driving - Safe sex practices - Wear sunscreen of at least SPF 30 when outdoors. #VENOUS STASIS DERMATITIS pt requesting referral to dermatology plan; referral given to pt advised monitoring symptoms pt understood and agreeable to plan #FATTY LIVER DISEASE pt previously under care of GI specialist in [facility] would like referral to GI specialist PLAN: referral given to pt liver labs obtained refer to user experience analyst pt understood plan and agreeable Screening Guidelines Male 50-64 1. Alcohol misuse Annually : 2. Blood pressure: annually 3. Colorectal cancer: All adults, colonoscopy every 5 yrs. 4. T2DM: Pts w/ no SX and >135/80 mm Hg. Alteast every 3 years. Date last screened. 5. Depression; At routine exams 6. HIV: opt out- screening (age 15-65) Sexually active/drug use: 7. Lipid disorders: at least every 5 years. 8. Obesity At routine exams: 9. Syphilis Sexually active or drug use at routine exams: 10. Tuberculosis increased risk for infection: 11. Vision all adults at routine exam: Counselling 1. Diet and behaviors counseling: If hyperlipidemia and other known risk factors for CV and diet related chr disease. 2. Tobacco use and tobacco related disease: all adults 3. Aspirin for primary prevention of cardiovascular problems: 45 - 79 yrs when DX with risk fo CHD and benefits from decrease n heart attacks out weight risks of GI bleeding. 01/05/2024 Mixed hyperlipidemia (ICD-10 - E78.2) Clinical Data (Labs/X-ray): CLINICAL IMPRESSION: #LAB REVIEW - 48yo male here via tele for lab review from annual physical - CBC = platelets 122 (L), Hgb 18.5 (H), Hct (55) - CMP = ALT 101 (H), AST 48 (H), total bilirubin 1.4 (H) - Lipids = TGLs 398 (H), LDL 109 (H), HDL 38 (L), total 204 (H) - TSH = wnl - A1c = 5.5%, wnl PLAN - Discussed in depth concern for polycythemia; pt states he is taking testosterone injections weekly due to low testosterone tested/managed at outside clinic. Expressed concern for rising Hgb/Hct since last CBC 3mo ago - Reviewed in depth risks associated with polycythemia including heart attacks/stroke; likely secondary to exogenous testosterone. Advised patient to HOLD or decrease testosterone dose - Repeat CBC and add peripheral smear to r/o other causes of polycythemia - Discussed elevated liver enzymes, reports known hx of NAFLD and has f/u with GI tomorrow -- prefers to defer further workup pertaining to NAFLD to GI at appt tomorrow. Advised on benefit of RUQ US and additional labs - Discussed cholesterol levels in depth; TGLs significantly elevated -- pt reports c/w prior hx and believes secondary to weight gain and diet. LDL and total cholesterol slightly elevated. - ASCVD risk = 5.7%, borderline. Given hx of poorly controlled HTN in the past and significantly elevated TGLs, recommended starting a low dose statin to decrease risk -- consider adding fenofibrate if no improvement to TGLs at next visit - Counseled on heart healthy diet and exercise to manage weight and cholesterol - Reviewed adverse effects of statins; has taken in the past and tolerated well - Red flags reviewed in depth; ER precautions given -- aware when to seek immediate care - F/u in 1 week to repeat cbc w/ peripheral smear to assess thrombocytopenia and polycythemia - F/u in 1mo for htn + hld visit, sooner if concerns arise .... Wellness Scheduled? Women's Wellness Scheduled?: Follow-up visit Scheduled?: Y/N PLAN AT NEXT VISIT: 01/22/2024 Hypertension (ICD-10 - I10) CLINICAL IMPRESSION/PLAN OF CARE: 1. Elevated Liver Enzymes and Minimal Fatty Liver - Assessment: He has elevated liver enzymes and minimal fatty liver. - Plan: Continue taking LiverMD [employer] as it contains hepatoprotective ingredients (Vitamin E, selenium, milk thistle, NAC, and alpha-lipoic acid) and has shown improvement in his liver health. Monitor liver function through blood work and liver scans as needed. Discuss with primary liver doctor regarding the potential impact of testosterone replacement therapy on liver function. 2. Low Testosterone Levels - Assessment: He has low testosterone levels. - Plan: Continue current testosterone replacement therapy (200 mg/mL injection once a week) for now. Re-evaluate the need for testosterone replacement therapy in the context of liver health and potential alternative options. 3. Weight Management and Nutrition - Assessment: He requires support for weight management and nutrition. - Plan: Resume food journaling using his preferred leelee to track daily intake and monitor snacking habits. Encourage him to increase physical activity and develop a regular exercise routine. Follow up in two weeks to review food journal, discuss any challenges, and provide guidance on nutrition and meal planning. 4. Fatigue - Assessment: He experiences fatigue. - Plan: Encourage him to prioritize rest and sleep, especially after high-stress events such as work presentations. Monitor energy levels in the context of testosterone replacement therapy and overall health. 5. Discipline and Motivation - Plan: Support him in building discipline and maintaining motivation for lifestyle changes, including weight management, nutrition, and exercise. Schedule regular follow-ups to monitor progress and provide guidance as needed. 02/05/2024 Essential hypertension (ICD-10 - I10) CLINICAL IMPRESSION/PLAN OF CARE: 1. Obesity - Assessment: BMI 35, current weight 251.8 lbs (down 5 lbs from last visit), body fat 22.8%, muscle mass 113.5 lbs. - Plan: Continue monitoring weight, body fat percentage, and muscle mass monthly. Encourage patient to maintain calorie intake around 2,500 or lower, focus on portion control and increasing protein to 30-40 grams per meal. Encourage gradual increase in physical activity as tolerated. 2. Inadequate Protein Intake - Assessment: Inadequate protein intake for muscle mass and overall health. - Plan: Educate on importance of protein. Recommend incorporating fresh meat, protein shakes, and bars to increase intake. Reassess in two weeks. Advised larger protein portions, aiming for 30-40 grams per meal. 3. Sedentary Lifestyle - Assessment: Sedentary lifestyle. - Plan: Encourage gradual increase in physical activity as tolerated. Discuss importance of balancing healthy eating and exercise. Monitor progress and provide support during biweekly/monthly check-ins. Patient currently limited due to 's health issues. 4. Improved Liver Panel - Assessment: Recent liver panel showed improvement in numbers. - Plan: Continue monitoring liver enzymes through CMP. Reinforce importance of healthy diet and lifestyle for liver health. Follow-up: Schedule follow-up in two weeks to discuss progress and concerns. Transition to monthly check-ins once comfortable with progress and routine. Patient prefers in-person visits. 01/27/2024 Elevated LFTs (ICD-10 - R79.89) Clinical Data (Labs/X-ray): CLINICAL IMPRESSION: #HYPERTENSION - 48 year old male is seen in the clinic for a hypertension follow-up. - Patient reports taking chlorthalidone 12.5 mg and telmisartan 40 mg daily as prescribed. - He has not needed to use clonidine since his last visit. - Reports home BP readings are stable in 120's-130's. - Denies any side effects of medication, hypotension, lightheadedness, or dizziness. - Patient is asymptomatic at this time. - Denies any chest pain, headaches, dyspnea, palpitations, vision changes, or leg edema. - PE = unremarkable. - EKG = 08/2023. - CMP = LFTs elevated, Bili 1.4 H, Glucose 104, otherwise WNL. - Microalbumin = WNL 12/2023. PLAN: - Refilled both chlorthalidone and telmisartan. - Side effects of medication reviewed with patient (cough, angioedema). - Advised adequate fluid intake daily while on thiazide diuretic. - Continue to monitor BP daily at home. Record reading daily and bring data to follow-up visit for further evaluation. - Counseled patient regarding lifestyle modifications including: weight loss, reduced EtOH intake, DASH diet, reduced sodium intake, and moderate intensity aerobic exercise for 120-150 minutes per week. - Red flags of hypertension and when to seek emergent care discussed with patient. - Patient expressed verbal understanding of the entire above discussion and agreed to plan. - Follow-up in 3 months for medication refill, sooner as needed for symptoms or elevated blood pressure readings. #HYPERLIPIDEMIA - Patient with a history of hyperlipidemia is seen for medication refill. - Current Regimen = atorvastatin 10 mg (started ~4 weeks ago). - Patient reports taking atorvastatin daily as prescribed and tolerating the medication well. - Denies any myalgia or other side effects of medications today. - Lipid Panel = 12/2023 most recent --> TG 398 H, HDL 38 L, LDL 109 H, TC 204 H. - LFTs = ALT elevations (reports history of NAFLD). - Liver Elastography = fibrosis stage F0-1 (01/19/24). - ASCVD Risk = 5.9% (borderline). PLAN: - Refilled atorvastatin 10 mg, 30 days. If LDL at goal and TG stable, plan to extend refill at lab review visit. - Plan to repeat fasting lipid panel in 3 months. - Has F/U with hepatology (Dr. Antony Bennett) to review further workup for NAFLD and elevated LFTs. - Emphasized the importance of lifestyle modifications in addition to pharmacologic interventions with patient (weight loss, increased cardiovascular exercise, dietary modifications). - Red flags reviewed with patient. - All questions answered and addressed. - Patient expressed verbal understanding of entire above discussion and agreed to plan. - F/U for lab review in 1 week, sooner PRN. #LAB REVIEW - Patient is seen via telemedicine for a lab review. - Reviewed labs from 01/10/24 in detail with patient. - CBC = RBC 5.97 H, Hgb 19.2 H, Hct 56.8 H, PTLT 123 L, otherwise WNL. - Peripheral Smear = moderate polychromasia, otherwise WNL. - Currently on testosterone from online clinic. - Denies any headaches, vision changes, palpitations, or chest pain. PLAN: - Hold testosterone IM at this time, reassess CBC in 2-3 months to assess if RBC indices normalized without testosterone exogenously. - Repeat CBC today with citrate top to R/O pseudothrombocyto penia. - All questions and concerns addressed. - Patient expressed verbal understanding of the entire above discussion and agreed to plan. 02/10/2024 Elevated LFTs (ICD-10 - R79.89) Clinical Data (Labs/X-ray): CLINICAL IMPRESSION: #LAB REVIEW # LOW PLATELETS referral to commercial lawn specialist emailed to pt has always had low platelets for several years, has never been worked up testosterone on hold given abnormal CBC, may consider restarting pending heme consult #HYPERLIPIDEMIA TG still elevated dw pt starting fenofibrate given work up for fatty liver and possible adverse effects would want to make sure ok prior to restarting pt is also part of [facility] so may also help decrease levels - Patient with a history of hyperlipidemia is seen for medication refill. - Current Regimen = atorvastatin 10 mg has been on for over a month - Patient reports taking atorvastatin daily as prescribed and tolerating the medication well. - Denies any myalgia or other side effects of medications today. #ELEVATED LFT/FATTY LIVER just saw GI and was told fatty liver percentage was low and he was advised lifestyle changes of diet and exercise #BLE lesions saw derm saw [employer], and BLE benign scarring of legs,no concern for cancer, mainly just capillary leaking, was given steroid cream has fu with them in a couple of weeks more cosmetic nothing that concerning PLAN: - Emphasized the importance of lifestyle modifications in addition to pharmacologic interventions with patient (weight loss, increased cardiovascular exercise, dietary modifications). - Red flags reviewed with patient. - All questions answered and addressed. - Patient expressed verbal understanding of entire above discussion and agreed to plan. - F/U for lab review in 1 week, sooner PRN. PLAN: - refill statin x 1 month -consider adding fenofibrate (low dose) if ok/cleared by GI given adverse reaction of increase in hepaitis or fatty liver, pt reports he tolerated in the past, would like to hold off given levels are trending down at this time - All questions and concerns addressed. - Patient expressed verbal understanding of the entire above discussion and agreed to plan NEXT VISIT NV: reassess lipids in 6-8 weeks, consider adding an agent vs increasing statin d/w pt risk of uncontrolled lipids and risk for heart disease, stroke and diabetes 03/22/2024 Erythrocytosis (ICD-10 - D75.1) Received and reviewed notes from hematology consult. Hx of chronic mild thrombocytopenia, 110s-120s. Asymptomatic. Hematology plan for repeat cbc, HIV, hepatitis panel, b12, folate, copper levels; check EPO and MPN panel. Dear Amanuel, We have received the results from your recent visit with hematology (Dr Muir). These notes have been scanned to your chart for future reference. Have a great day! Sincerely, SINA [facility] [phone] 07/07/2024 Medication management (ICD-10 - Z79.899) Assessment: #HYPERTENSION - 49 year old male is seen virtually (approved per last altamirano) for a hypertension follow-up. - Patient recently moved from [place] to [facility] and has not established with new PCP [...] to plan. - Follow-up with PCP in [facility] when established, sooner as needed for symptoms or elevated blood pressure readings. #HYPERLIPIDEMIA - 49 year old male with a history of hyperlipidemia is virtually (approved per last altamirano) for a cholesterol refill. - Patient recently moved from [place] to [facility] and has not established with new PCP [...] to plan. - Follow-up with PCP in [facility] when established, sooner PRN. 02/05/2024 High triglycerides (ICD-10 - E78.1) CLINICAL IMPRESSION/PLAN OF CARE: 1. Obesity - Assessment: BMI 35, current weight 251.8 lbs (down 5 lbs from last visit), body fat 22.8%, muscle mass 113.5 lbs. - Plan: Continue monitoring weight, body fat percentage, and muscle mass monthly. Encourage patient to maintain calorie intake around 2,500 or lower, focus on portion control and increasing protein to 30-40 grams per meal. Encourage gradual increase in physical activity as tolerated. 2. Inadequate Protein Intake - Assessment: Inadequate protein intake for muscle mass and overall health. - Plan: Educate on importance of protein. Recommend incorporating fresh meat, protein shakes, and bars to increase intake. Reassess in two weeks. Advised larger protein portions, aiming for 30-40 grams per meal. 3. Sedentary Lifestyle - Assessment: Sedentary lifestyle. - Plan: Encourage gradual increase in physical activity as tolerated. Discuss importance of balancing healthy eating and exercise. Monitor progress and provide support during biweekly/monthly check-ins. Patient currently limited due to 's health issues. 4. Improved Liver Panel - Assessment: Recent liver panel showed improvement in numbers. - Plan: Continue monitoring liver enzymes through CMP. Reinforce importance of healthy diet and lifestyle for liver health. Follow-up: Schedule follow-up in two weeks to discuss progress and concerns. Transition to monthly check-ins once comfortable with progress and routine. Patient prefers in-person visits. 02/10/2024 High triglycerides (ICD-10 - E78.1) Clinical Data (Labs/X-ray): CLINICAL IMPRESSION: #LAB REVIEW # LOW PLATELETS referral to commercial lawn specialist emailed to pt has always had low platelets for several years, has never been worked up testosterone on hold given abnormal CBC, may consider restarting pending heme consult #HYPERLIPIDEMIA TG still elevated dw pt starting fenofibrate given work up for fatty liver and possible adverse effects would want to make sure ok prior to restarting pt is also part of [facility] so may also help decrease levels - Patient with a history of hyperlipidemia is seen for medication refill. - Current Regimen = atorvastatin 10 mg has been on for over a month - Patient reports taking atorvastatin daily as prescribed and tolerating the medication well. - Denies any myalgia or other side effects of medications today. #ELEVATED LFT/FATTY LIVER just saw GI and was told fatty liver percentage was low and he was advised lifestyle changes of diet and exercise #BLE lesions saw derm saw [employer], and BLE benign scarring of legs,no concern for cancer, mainly just capillary leaking, was given steroid cream has fu with them in a couple of weeks more cosmetic nothing that concerning PLAN: - Emphasized the importance of lifestyle modifications in addition to pharmacologic interventions with patient (weight loss, increased cardiovascular exercise, dietary modifications). - Red flags reviewed with patient. - All questions answered and addressed. - Patient expressed verbal understanding of entire above discussion and agreed to plan. - F/U for lab review in 1 week, sooner PRN. PLAN: - refill statin x 1 month -consider adding fenofibrate (low dose) if ok/cleared by GI given adverse reaction of increase in hepaitis or fatty liver, pt reports he tolerated in the past, would like to hold off given levels are trending down at this time - All questions and concerns addressed. - Patient expressed verbal understanding of the entire above discussion and agreed to plan NEXT VISIT NV: reassess lipids in 6-8 weeks, consider adding an agent vs increasing statin d/w pt risk of uncontrolled lipids and risk for heart disease, stroke and diabetes 01/05/2024 High triglycerides (ICD-10 - E78.1) Clinical Data (Labs/X-ray): CLINICAL IMPRESSION: #LAB REVIEW - 48yo male here via tele for lab review from annual physical - CBC = platelets 122 (L), Hgb 18.5 (H), Hct (55) - CMP = ALT 101 (H), AST 48 (H), total bilirubin 1.4 (H) - Lipids = TGLs 398 (H), LDL 109 (H), HDL 38 (L), total 204 (H) - TSH = wnl - A1c = 5.5%, wnl PLAN - Discussed in depth concern for polycythemia; pt states he is taking testosterone injections weekly due to low testosterone tested/managed at outside clinic. Expressed concern for rising Hgb/Hct since last CBC 3mo ago - Reviewed in depth risks associated with polycythemia including heart attacks/stroke; likely secondary to exogenous testosterone. Advised patient to HOLD or decrease testosterone dose - Repeat CBC and add peripheral smear to r/o other causes of polycythemia - Discussed elevated liver enzymes, reports known hx of NAFLD and has f/u with GI tomorrow -- prefers to defer further workup pertaining to NAFLD to GI at appt tomorrow. Advised on benefit of RUQ US and additional labs - Discussed cholesterol levels in depth; TGLs significantly elevated -- pt reports c/w prior hx and believes secondary to weight gain and diet. LDL and total cholesterol slightly elevated. - ASCVD risk = 5.7%, borderline. Given hx of poorly controlled HTN in the past and significantly elevated TGLs, recommended starting a low dose statin to decrease risk -- consider adding fenofibrate if no improvement to TGLs at next visit - Counseled on heart healthy diet and exercise to manage weight and cholesterol - Reviewed adverse effects of statins; has taken in the past and tolerated well - Red flags reviewed in depth; ER precautions given -- aware when to seek immediate care - F/u in 1 week to repeat cbc w/ peripheral smear to assess thrombocytopenia and polycythemia - F/u in 1mo for htn + hld visit, sooner if concerns arise .... Wellness Scheduled? Women's Wellness Scheduled?: Follow-up visit Scheduled?: Y/N PLAN AT NEXT VISIT: 01/22/2024 Mixed hyperlipidemia (ICD-10 - E78.2) CLINICAL IMPRESSION/PLAN OF CARE: 1. Elevated Liver Enzymes and Minimal Fatty Liver - Assessment: He has elevated liver enzymes and minimal fatty liver. - Plan: Continue taking LiverMD by [employer] as it contains hepatoprotective ingredients (Vitamin E, selenium, milk thistle, NAC, and alpha-lipoic acid) and has shown improvement in his liver health. Monitor liver function through blood work and liver scans as needed. Discuss with primary liver doctor regarding the potential impact of testosterone replacement therapy on liver function. 2. Low Testosterone Levels - Assessment: He has low testosterone levels. - Plan: Continue current testosterone replacement therapy (200 mg/mL injection once a week) for now. Re-evaluate the need for testosterone replacement therapy in the context of liver health and potential alternative options. 3. Weight Management and Nutrition - Assessment: He requires support for weight management and nutrition. - Plan: Resume food journaling using his preferred leelee to track daily intake and monitor snacking habits. Encourage him to increase physical activity and develop a regular exercise routine. Follow up in two weeks to review food journal, discuss any challenges, and provide guidance on nutrition and meal planning. 4. Fatigue - Assessment: He experiences fatigue. - Plan: Encourage him to prioritize rest and sleep, especially after high-stress events such as work presentations. Monitor energy levels in the context of testosterone replacement therapy and overall health. 5. Discipline and Motivation - Plan: Support him in building discipline and maintaining motivation for lifestyle changes, including weight management, nutrition, and exercise. Schedule regular follow-ups to monitor progress and provide guidance as needed. 12/29/2023 Body mass index (BMI) of 31.0-31.9 in adult (ICD-10 - Z68.31) Obesity Counseling Performed Counseling Cardiovascular Disease Therapy Clinical Data (Labs/X-ray): PHQ: 0 CANDICE: 0 MEDICAL -48 y/o male here for annual exam; no acute complaints -ROS unremarkable -PE and vitals are normal - UTD on vaccinations - UTD on screenings PLAN: -Fasting wellness labs and STI testing completed today +a1c -F/U in 5 days for lab results -Repeat annual w/ fasting labs in 1 year Healthy lifestyle recommendations: - Encouraged regular exercise for at least 30 minutes x5 times per week - Recommend well balanced diet with plenty of fruits, vegetables, and whole grains - Incorporate fiber in daily diet (at least 21 to 25 grams a day for women and 30 to 38 grams a day for men) - Recommend water intake >64oz per day - Proper seat belt use, no texting and driving - Safe sex practices - Wear sunscreen of at least SPF 30 when outdoors. #VENOUS STASIS DERMATITIS pt requesting referral to dermatology plan; referral given to pt advised monitoring symptoms pt understood and agreeable to plan #FATTY LIVER DISEASE pt previously under care of GI specialist in [facility] would like referral to GI specialist PLAN: referral given to pt liver labs obtained refer to user experience analyst pt understood plan and agreeable Screening Guidelines Male 50-64 1. Alcohol misuse Annually : 2. Blood pressure: annually 3. Colorectal cancer: All adults, colonoscopy every 5 yrs. 4. T2DM: Pts w/ no SX and >135/80 mm Hg. Alteast every 3 years. Date last screened. 5. Depression; At routine exams 6. HIV: opt out- screening (age 15-65) Sexually active/drug use: 7. Lipid disorders: at least every 5 years. 8. Obesity At routine exams: 9. Syphilis Sexually active or drug use at routine exams: 10. Tuberculosis increased risk for infection: 11. Vision all adults at routine exam: Counselling 1. Diet and behaviors counseling: If hyperlipidemia and other known risk factors for CV and diet related chr disease. 2. Tobacco use and tobacco related disease: all adults 3. Aspirin for primary prevention of cardiovascular problems: 45 - 79 yrs when DX with risk fo CHD and benefits from decrease n heart attacks out weight risks of GI bleeding. 01/05/2024 Thrombocytopenia (ICD-10 - D69.6) Clinical Data (Labs/X-ray): CLINICAL IMPRESSION: #LAB REVIEW - 48yo male here via tele for lab review from annual physical - CBC = platelets 122 (L), Hgb 18.5 (H), Hct (55) - CMP = ALT 101 (H), AST 48 (H), total bilirubin 1.4 (H) - Lipids = TGLs 398 (H), LDL 109 (H), HDL 38 (L), total 204 (H) - TSH = wnl - A1c = 5.5%, wnl PLAN - Discussed in depth concern for polycythemia; pt states he is taking testosterone injections weekly due to low testosterone tested/managed at outside clinic. Expressed concern for rising Hgb/Hct since last CBC 3mo ago - Reviewed in depth risks associated with polycythemia including heart attacks/stroke; likely secondary to exogenous testosterone. Advised patient to HOLD or decrease testosterone dose - Repeat CBC and add peripheral smear to r/o other causes of polycythemia - Discussed elevated liver enzymes, reports known hx of NAFLD and has f/u with GI tomorrow -- prefers to defer further workup pertaining to NAFLD to GI at appt tomorrow. Advised on benefit of RUQ US and additional labs - Discussed cholesterol levels in depth; TGLs significantly elevated -- pt reports c/w prior hx and believes secondary to weight gain and diet. LDL and total cholesterol slightly elevated. - ASCVD risk = 5.7%, borderline. Given hx of poorly controlled HTN in the past and significantly elevated TGLs, recommended starting a low dose statin to decrease risk -- consider adding fenofibrate if no improvement to TGLs at next visit - Counseled on heart healthy diet and exercise to manage weight and cholesterol - Reviewed adverse effects of statins; has taken in the past and tolerated well - Red flags reviewed in depth; ER precautions given -- aware when to seek immediate care - F/u in 1 week to repeat cbc w/ peripheral smear to assess thrombocytopenia and polycythemia - F/u in 1mo for htn + hld visit, sooner if concerns arise .... Wellness Scheduled? Women's Wellness Scheduled?: Follow-up visit Scheduled?: Y/N PLAN AT NEXT VISIT: 12/29/2023 Overweight (ICD-10 - E66.3) Clinical Data (Labs/X-ray): PHQ: 0 CANDICE: 0 MEDICAL -48 y/o male here for annual exam; no acute complaints -ROS unremarkable -PE and vitals are normal - UTD on vaccinations - UTD on screenings PLAN: -Fasting wellness labs and STI testing completed today +a1c -F/U in 5 days for lab results -Repeat annual w/ fasting labs in 1 year Healthy lifestyle recommendations: - Encouraged regular exercise for at least 30 minutes x5 times per week - Recommend well balanced diet with plenty of fruits, vegetables, and whole grains - Incorporate fiber in daily diet (at least 21 to 25 grams a day for women and 30 to 38 grams a day for men) - Recommend water intake >64oz per day - Proper seat belt use, no texting and driving - Safe sex practices - Wear sunscreen of at least SPF 30 when outdoors. #VENOUS STASIS DERMATITIS pt requesting referral to dermatology plan; referral given to pt advised monitoring symptoms pt understood and agreeable to plan #FATTY LIVER DISEASE pt previously under care of GI specialist in [facility] would like referral to GI specialist PLAN: referral given to pt liver labs obtained refer to user experience analyst pt understood plan and agreeable Screening Guidelines Male 50-64 1. Alcohol misuse Annually : 2. Blood pressure: annually 3. Colorectal cancer: All adults, colonoscopy every 5 yrs. 4. T2DM: Pts w/ no SX and >135/80 mm Hg. Alteast every 3 years. Date last screened. 5. Depression; At routine exams 6. HIV: opt out- screening (age 15-65) Sexually active/drug use: 7. Lipid disorders: at least every 5 years. 8. Obesity At routine exams: 9. Syphilis Sexually active or drug use at routine exams: 10. Tuberculosis increased risk for infection: 11. Vision all adults at routine exam: Counselling 1. Diet and behaviors counseling: If hyperlipidemia and other known risk factors for CV and diet related chr disease. 2. Tobacco use and tobacco related disease: all adults 3. Aspirin for primary prevention of cardiovascular problems: 45 - 79 yrs when DX with risk fo CHD and benefits from decrease n heart attacks out weight risks of GI bleeding. 12/29/2023 Other problems related to lifestyle (ICD-10 - Z72.89) Clinical Data (Labs/X-ray): PHQ: 0 CANDICE: 0 MEDICAL -48 y/o male here for annual exam; no acute complaints -ROS unremarkable -PE and vitals are normal - UTD on vaccinations - UTD on screenings PLAN: -Fasting wellness labs and STI testing completed today +a1c -F/U in 5 days for lab results -Repeat annual w/ fasting labs in 1 year Healthy lifestyle recommendations: - Encouraged regular exercise for at least 30 minutes x5 times per week - Recommend well balanced diet with plenty of fruits, vegetables, and whole grains - Incorporate fiber in daily diet (at least 21 to 25 grams a day for women and 30 to 38 grams a day for men) - Recommend water intake >64oz per day - Proper seat belt use, no texting and driving - Safe sex practices - Wear sunscreen of at least SPF 30 when outdoors. #VENOUS STASIS DERMATITIS pt requesting referral to dermatology plan; referral given to pt advised monitoring symptoms pt understood and agreeable to plan #FATTY LIVER DISEASE pt previously under care of GI specialist in [facility] would like referral to GI specialist PLAN: referral given to pt liver labs obtained refer to user experience analyst pt understood plan and agreeable Screening Guidelines Male 50-64 1. Alcohol misuse Annually : 2. Blood pressure: annually 3. Colorectal cancer: All adults, colonoscopy every 5 yrs. 4. T2DM: Pts w/ no SX and >135/80 mm Hg. Alteast every 3 years. Date last screened. 5. Depression; At routine exams 6. HIV: opt out- screening (age 15-65) Sexually active/drug use: 7. Lipid disorders: at least every 5 years. 8. Obesity At routine exams: 9. Syphilis Sexually active or drug use at routine exams: 10. Tuberculosis increased risk for infection: 11. Vision all adults at routine exam: Counselling 1. Diet and behaviors counseling: If hyperlipidemia and other known risk factors for CV and diet related chr disease. 2. Tobacco use and tobacco related disease: all adults 3. Aspirin for primary prevention of cardiovascular problems: 45 - 79 yrs when DX with risk fo CHD and benefits from decrease n heart attacks out weight risks of GI bleeding. 12/29/2023 Other Orders-Heal th Panel Clinical Data (Labs/X-ray): PHQ: 0 CANDICE: 0 MEDICAL -48 y/o male here for annual exam; no acute complaints -ROS unremarkable -PE and vitals are normal - UTD on vaccinations - UTD on screenings PLAN: -Fasting wellness labs and STI testing completed today +a1c -F/U in 5 days for lab results -Repeat annual w/ fasting labs in 1 year Healthy lifestyle recommendations: - Encouraged regular exercise for at least 30 minutes x5 times per week - Recommend well balanced diet with plenty of fruits, vegetables, and whole grains - Incorporate fiber in daily diet (at least 21 to 25 grams a day for women and 30 to 38 grams a day for men) - Recommend water intake >64oz per day - Proper seat belt use, no texting and driving - Safe sex practices - Wear sunscreen of at least SPF 30 when outdoors. #VENOUS STASIS DERMATITIS pt requesting referral to dermatology plan; referral given to pt advised monitoring symptoms pt understood and agreeable to plan #FATTY LIVER DISEASE pt previously under care of GI specialist in [facility] would like referral to GI specialist PLAN: referral given to pt liver labs obtained refer to user experience analyst pt understood plan and agreeable Screening Guidelines Male 50-64 1. Alcohol misuse Annually : 2. Blood pressure: annually 3. Colorectal cancer: All adults, colonoscopy every 5 yrs. 4. T2DM: Pts w/ no SX and >135/80 mm Hg. Alteast every 3 years. Date last screened. 5. Depression; At routine exams 6. HIV: opt out- screening (age 15-65) Sexually active/drug use: 7. Lipid disorders: at least every 5 years. 8. Obesity At routine exams: 9. Syphilis Sexually active or drug use at routine exams: 10. Tuberculosis increased risk for infection: 11. Vision all adults at routine exam: Counselling 1. Diet and behaviors counseling: If hyperlipidemia and other known risk factors for CV and diet related chr disease. 2. Tobacco use and tobacco related disease: all adults 3. Aspirin for primary prevention of cardiovascular problems: 45 - 79 yrs when DX with risk fo CHD and benefits from decrease n heart attacks out weight risks of GI bleeding. Plan Of Treatment Pending Test Test Name Order Date ELECTROCARDIOGRAM, COMPLETE 08/24/2023 MICROALBUMIN, RANDOM URINE (W/CREATININE ) - eCW 08/25/2023 CBC w/DIFF - eCW 08/25/2023 CBC w/DIFF - eCW 12/29/2023 CBC w/DIFF - eCW 01/27/2024 COMP METABOLIC PANEL - eCW 01/27/2024 COMP METABOLIC PANEL - eCW 12/29/2023 COMP METABOLIC PANEL - eCW 09/12/2023 COMP METABOLIC PANEL - eCW 10/28/2023 COMP METABOLIC PANEL - eCW 08/25/2023 COMP METABOLIC PANEL - eCW 08/27/2023 COMP METABOLIC PANEL - eCW 09/09/2023 HEMOGLOBIN A1C,with GLYCOHEMOGLOBIN -eCW 12/29/2023 LIPID PANEL WITH LDL-CALC (AMA) -eCW LIPID PANEL WITH LDL-CALC (AMA) -eCW OSMOLALITY, SERUM 08/26/2023 TSH - eCW 12/29/2023 TSH - eCW 08/25/2023 VENIPUNCTURE -eCW 02/24/2024 VENIPUNCTURE -eCW 12/29/2023 VENIPUNCTURE -eCW 01/07/2024 VENIPUNCTURE -eCW 09/09/2023 VENIPUNCTURE -eCW 08/25/2023 CREATININE, SERUM 08/26/2023 Insurance Providers Payer Name Payer Address Payer Phone Subscriber Number Group Number Insured Name Patient Relationship to Insured Coverage Start Date Coverage End Date [facility] [address] [place] [address] [id number] Pavel Antony Self - patient is the insured Medical (General) History Medical History History ICD Code Glaucoma associated with unspecified ocu lar disorder 365.60 Fatty liver K76.0 Gallstones K80.20 Hypertension I10 Surgical History Surgery Date(Month/Year) cholecystectomy Hospitalization History Reason Date(Month/Year) went to ED d/t HTN episode 2016
--- NOTE | 2024-11-04 03:05 | ECG_ITS ---
Test Date: 2024-11-04 03:02:37 Measurements Intervals [place] Rate: 79 P: 41 [place]: 161 QRS: -24 QRSD: 92 T: 0 QT: 324 QTc: 373 Interpretive Statements SINUS RHYTHM POSSIBLE LEFT ATRIAL ENLARGEMENT [-0.1mV P-WAVE IN V1/V2] POSSIBLE ANTERIOR MYOCARDIAL INFARCTION , OF INDETERMINATE AGE [30 ms Q WAVE IN V3/V4, OR R < 0.2 mV IN V4] No previous ECG available for comparison Electronically Signed On 11-04-2024 14:05:18 CDT by Puneet Christianson M.D.
--- NOTE | 2024-11-04 04:36 | ED_ITS ---
HPI - General Adult General Chief complaint: Weakness Stated complaint: weakness Time Seen by Provider: 11/04/24 04:07 History of Present Illness HPI narrative: 49-year-old male presents to the emergency department for evaluation for elevated CPK increased generalized muscle weakness. Patient did have a change in the manufacture of his atorvastatin few weeks ago. Patient noticed he was having increased muscle weakness approximately 1 week ago. Patient did have follow-up with his primary care physician and had outpatient labs that did show an elevated CPK. states that yesterday she began noticing some left-sided facial droop. Patient denies any other focal numbness or weakness but does have generalized muscle weakness that he notices while walking. Patient denies any chest pain or shortness of breath. Patient states he does have a mild speech impediment at baseline secondary to hearing impairment. Related Data Allergies Allergy/AdvReac Type Severity Reaction Status Date / Time Penicillins Allergy Rash Verified 11/04/24 06:27 [id number] Reductase AdvReac Severe Weakness Verified 11/04/24 06:27 Inhibitor Review of Systems 2 Review of Systems: All systems reviewed & are unremarkable except as noted in HPI and below Exam 2 Narrative: APPEARANCE: Well appearing, no pain, no distress, well-nourished. HEAD: normocephalic, atraumatic. EYES: PERRLA/EOMI, conjunctivae clear. NOSE: Normal no drainage EARS:TMS clear with good light reflex. THROAT: Pharynx clear, no exudate. NECK: Supple. No adenopathy, no masses. RESPIRATORY: Airway patent, respirations nonlabored. Clear to auscultation bilaterally, no rales, rhonchi, wheezing. CARDIOVASCULAR: Regular rate and rhythm without murmurs rubs or gallops. ABDOMINAL: Soft, nontender, nondistended, normal bowel sounds MUSCULOSKELETAL: Moves all extremities. Strength/ROM intact, No edema, No calf tenderness. NEURO: Alert. Left-sided facial droop involving the forehead. decreased wrinkles of the forehead when elevating the eyebrows and does have decreased smile on the left. No other acute neuro abnormalities on the neuro exam SKIN: Warm, dry. Normal Color PSYCHIATRIC: Normal affect/mood. Course Vital Signs Vital signs: Vital Signs Temperature 97.9 F 11/04/24 02:54 Pulse Rate 87 11/04/24 02:54 Respiratory Rate 19 11/04/24 02:54 Blood Pressure 172/104 H 11/04/24 02:54 Pulse Oximetry 97 11/04/24 02:54 Oxygen Delivery Room Air 11/04/24 02:54 Temperature 97.9 F 11/04/24 02:54 Pulse Rate 87 11/04/24 02:54 Respiratory Rate 19 11/04/24 02:54 Blood Pressure 172/104 H 11/04/24 02:54 Pulse Oximetry 97 11/04/24 02:54 Oxygen Delivery Room Air 11/04/24 02:54 Medical Decision Making MDM Narrative Medical decision making narrative: 49-year-old male presents emergency department for evaluation for multiple complaints including lower extremity weakness, joint tightness muscle pain and left-sided facial droop. Have suspected Viveros's palsy and left side of his face. Patient was started on prednisone and valacyclovir emergency department. Head CT was negative for acute intracranial abnormality. Patient was afebrile with no leukocytosis hemoglobin of 18.9. Patient has no acute abnormalities on his CMP including a normal creatinine of 1.07. Patient does have a elevated total creatinine kinase of 1000 and this was increased compared to his measurement of 800 that was collected yesterday as outpatient. Patient's TSH is mildly elevated at 4.7. UA was negative for infection and urine was clear. Case was discussed with hospitalist patient will be accepted for admission for further evaluation potential worsening rhabdo secondary to his atorvastatin. Patient also have an MRI ordered to evaluate for the suspected Viveros's palsy and generalized weakness his bilateral lower extremities. Patient family were updated on the results of the workup and plan for admission. All questions concerns were addressed. Differential Diagnosis Differential Diagnosis: Viveros's palsy, rhabdomyolysis, CVA, TIA, autoimmune disorder, multiple sclerosis Vital Signs Vital Signs: Vital Signs Temperature 97.9 F 11/04/24 02:54 Pulse Rate 87 11/04/24 02:54 Respiratory Rate 11/04/24 02:54 Blood Pressure 172/104 H 11/04/24 02:54 Pulse Oximetry 97 11/04/24 02:54 Oxygen Delivery Room Air 11/04/24 02:54 Temperature 97.9 F 11/04/24 02:54 Pulse Rate 87 11/04/24 02:54 Respiratory Rate 19 11/04/24 02:54 Blood Pressure 172/104 H 11/04/24 02:54 Pulse Oximetry 97 05/22/25 02:54 Oxygen Delivery Room Air 11/04/24 02:54 Lab Data Lab results reviewed: Yes I reviewed the patient's lab results. 11/04/24 05:29 11/04/24 05:29 Labs: Lab Results 11/04/24 11/04/24 Range/Units 05:29 05:29 WBC 7.5 (4.5-10.0) K/mm3 RBC 6.03 (4.6-6.20) M/mm3 Hgb 18.9 H (14.0-18.0) g/dL Hct 54.3 H (42.0-52.0) % MCV 90.0 (80-100) fl MCH 31.3 (26-34) pg MCHC 34.8 (32-36) g/dl RDW 12.5 (11.5-14.5) % Plt Count 127 L (150-375) k/mm3 MPV 9.4 (7.4-10.4) fl Immature Gran % (Auto) 0.5 (0-0.5) % Neut % (Auto) 55.6 (45.5-73.1) % Lymph % (Auto) 28.2 (18.3-44.2) % [place] % (Auto) 13.3 H (2.6-8.5) % Eos % (Auto) 2.1 (0-4.4) % Baso % (Auto) 0.3 (0.2-1.2) % Lymph # (Auto) 2.10 (0.9-3.2) K/mm3 [place] # (Auto) 1.0 H (0.1-0.6) K/mm3 Eos # (Auto) 0.2 (0-0.3) K/mm3 Baso # (Auto) 0.0 (0.0-0.1) K/mm3 Abs Immat Gran (auto) 0.04 H (0.00-0.031) K/mm3 Absolute Neuts (auto) 4.1 (1.3-6.7) K/mm3 Absolute Nucleated RBC 0.000 (0.0-0.012) K/mm3 Nucleated RBC % 0.0 (0.0-0.2) % % Immature Plt Fraction 2.0 (0.9-11.2) % Sodium 138 (137-145) mmol/L Potassium 4.1 (3.4-5.0) mmol/L Chloride 101 (98-107) mmol/L Carbon Dioxide 26 (22-30) mmol/L Anion Gap 11 (4-12) mmol/L BUN 20 (9-20) mg/dL Creatinine 1.07 (0.7-1.3) mg/dL Estim Creat Clear Calc Not Reportable Estimated GFR > 60 (59 - ) Glucose 115 H (65-110) mg/dL Calcium 10.0 (8.4-10.2) mg/dL Magnesium 1.9 Cancelled (1.6-2.3) mg/dL Total Bilirubin 0.9 (0.2-1.3) mg/dL AST 66 H (17-59) U/L ALT 70 H (6-50) U/L Alkaline Phosphatase 56 (38-126) U/L Total Creatine Kinase 1050 H (55-170) U/L Total Protein 8.0 (6.3-8.2) g/dL Albumin 4.7 (3.5-5.1) g/dL Triglycerides 368 H (<150) mg/dL Cholesterol 220 H (0-200) mg/dL LDL Cholesterol Direct Pending HDL Direct 34 mg/dL TSH (Reflex) 4.730 H (0.465-4.68) uIU/mL Free T4 Pending Urine Color Yellow (Yellow) Urine Appearance Clear (Clear) Urine pH 6.5 (5.0-9.0) Ur Specific [place] 1.020 (1.001-1.035) Urine Protein Negative (Negative) mg/dL Urine Glucose (UA) Negative (Negative) mg/dL Urine Ketones Negative (Negative) mg/dL Ur Blood (Man) Negative (Negative) Urine Nitrate Negative (Negative) Urine Bilirubin Negative (Negative) Urine Urobilinogen 0.2 (<2.0) mg/dL Leukocyte Esterase Rfl Negative (Negative) RENE/UL Imaging Data Radiologist's impression: Impressions Head CT 11/04/24 05:29 Impression: No significant abnormality seen. Discharge Plan Discharge Clinical Impression: Rhabdomyolysis, Left-sided Viveros's palsy Patient Disposition: Still a Patient Condition: Serious Patient Language: Hungarian Follow-up/Referrals: Patricia,Margret Burgess, [employer] [Primary Care Provider] -
[2024-11-04] MEDS: LACTATED RINGERS 1,000 ML 999 ML IV CONT ×2 (05:27→05:28)
[2024-11-04 05:38] LABS: Add Urine Microscopic? NO; Appearance Urine Clear (Clear); Bilirubin Urine Negative (Negative); Blood Urine Negative (Negative); Color Urine Yellow (Yellow); Glucose Urine UA Negative (Negative); Ketones Urine Negative (Negative); Leukocyte Esterase Ur Negative LEU/UL (Negative); Nitrate Urine Negative (Negative); Protein Urine Negative (Negative); Urobilinogen Urine 0.2 mg/dL (<2.0); pH Urine 6.5 (5.0-9.0)
[2024-11-04 05:39] LABS: Basophils Percent Auto 0.3 % (0.2-1.2); Eosinophils Absolute Auto 0.2 K/mm3 (0-0.3); Eosinophils Percent Auto 2.1 % (0-4.4); Hematocrit 54.3 % (42.0-52.0); Hemoglobin 18.9 g/dL (14.0-18.0); Immature Granulocyte Absolute 0.04 K/mm3 (0.00-0.031); Immature Granulocyte Percent A 0.5 % (0-0.5); Lymphocytes Percent Auto 28.2 % (18.3-44.2); Mean Corpuscular HGB Conc 34.8 g/dl (32-36); Mean Corpuscular Hemoglobin 31.3 pg (26-34); Mean Platelet Volume 9.4 fl (7.4-10.4); Monocytes Percent Auto 13.3 % (2.6-8.5); Neutrophils Absolute Auto 4.1 K/mm3 (1.3-6.7); Neutrophils Percent Auto 55.6 % (45.5-73.1); Platelet Count Result 127 k/mm3 (150-375); Red Blood Count 6.03 M/mm3 (4.6-6.20); Red Cell Distribution Width 12.5 % (11.5-14.5); White Blood Count 7.5 K/mm3 (4.5-10.0)
[2024-11-04 05:57] LABS: Alanine Aminotransferase 70 U/L (6-50); Albumin Level 4.7 g/dL (3.5-5.1); Alkaline Phosphatase 56 U/L (38-126); Anion Gap 11 mmol/L (4-12); Aspartate Amino Transferase 66 U/L (17-59); Bilirubin,Total 0.9 mg/dL (0.2-1.3); Blood Urea Nitrogen 20 mg/dL (9-20); Carbon Dioxide 26 mmol/L (22-30); Chloride 101 mmol/L (98-107); Creatine Kinase 1050 U/L (55-170); Estimated Glomerular Filt Rate > 60; Glucose 115 mg/dL (65-110); Magnesium 1.9 mg/dL (1.6-2.3); Potassium 4.1 mmol/L (3.4-5.0); Sodium 138 mmol/L (137-145)
[2024-11-04] MEDS: predniSONE 20 MG TABLET 60 MG PO (06:48)
[2024-11-04] MEDS: valACYclovir HCL 500 MG TABLET 1000 MG PO (06:48)
[2024-11-04] MEDS: ACETAMINOPHEN 500 MG TABLET 1000 MG PO (06:51)
[2024-11-04 06:57] LABS: Cholesterol 220 mg/dL (0-200); HDL Direct 34 mg/dL; Triglycerides 368 mg/dL (<150)
[2024-11-04 07:07] LABS: LDL Cholesterol Direct 112 mg/dL
[2024-11-04 07:15] LABS: Free T4 Free Thyroxine Reflex 1.12 ng/dL (0.78-2.19)
--- NOTE | 2024-11-04 08:05 | ADMGEN ---
This patient, Pavel Antony, was admitted to Medical Room 250-01. Patient/family oriented to hospital policies and general routines including ID bracelet, bed and alarms, visiting hours, pain management, procedures, bathroom and other care routines, personal items, smoking policy, room service/diet, and visiting hours. Information on how to activate the Rapid Response Team has been discussed. Patient/Family are encouraged to report perceived risks to care and to ask questions if they do not understand what they are told or what they should do.
--- NOTE | 2024-11-04 08:13 | PM.IMHP ---
H&P: HPI History of Present Illness Date/Time: 11/04/24 08:13 Chief Complaint: weakness Narrative: 49-year-old male with PMH/o htn, hld admitted for evaluation for elevated CPK increased generalized muscle weakness. Patient did have a change in the manufacture of his atorvastatin few weeks ago. Patient noticed he was having increased muscle weakness approximately 1 week ago. He also received Prevnar vaccination 10/12/2024 in his physician's office. He had some labs done few weeks ago; ESR, CRP-normal , wbc normal. Hg 19.7, hct 55.8. noticed some left-sided facial droop. Patient denies any other focal numbness or weakness but does have generalized muscle weakness that he notices while walking. Patient denies any chest pain or shortness of breath. Patient was started on prednisone and valacyclovir in emergency department for suspected Viveros's palsy. Head CT was negative for acute intracranial abnormality. Patient was afebrile with no leukocytosis hemoglobin of 18.9. CMP is normal, liver enzyme elevated. Patient does have a elevated total creatinine kinase of 1000 and this was increased compared to his measurement of 800 that was collected yesterday as outpatient. Patient's TSH is mildly elevated at 4.7. UA was negative for infection and urine was clear. MRI ordered to evaluate for the suspected Viveros's palsy and generalized weakness his bilateral lower extremities. Pt is non smoker, drinks 3 beers a week. Pt is seen and examined. He is feeling better, able to get up and move around without much muscle pain and weakness. Neurology is consulted and following. He is eating and drinking ok. Review of Systems Review of Systems: All systems reviewed & are unremarkable except as noted in HPI and below [facility] Past Medical History Medical History (Updated 11/04/24 @ 12:10 by Saad Parkinson MD) Statin-induced myositis Social History Social History Smoking status: Never smoker Alcohol intake: current Drinks per week: 3 Substance use: never Do You Feel Safe in your Home?: Yes Lack of Transportation: No Lack of Food: Never True Current Housing: I Have Housing Concerned About Future Housing: No Difficulty Paying Gas/Electric Bills: No Difficulty Paying for Meds: No Currently Unemployed: No Education: Bachelor's Degree Difficulty w/ Childcare or Family Care: No Gender identity (if verbalized by the patient): Male Sexual Orientation (if Verbalized by the Patient): Straight or Heterosexual Spiritual care concerns: No Meds Home Medications and Allergies Home Medications ?Medication ?Instructions ?Recorded ?Confirmed ?Type amlodipine 5 mg tablet 5 mg PO DAILY 11/04/24 11/04/24 History atorvastatin 10 mg tablet 10 mg PO DAILY 11/04/24 11/04/24 History chlorthalidone 25 mg tablet 12.5 mg PO DAILY 11/04/24 11/04/24 History inulin 2 gram chewable tablet 5 g PO BID 11/04/24 11/04/24 History (F[employer]) telmisartan 40 mg tablet 60 mg PO DAILY 11/04/24 11/04/24 History Allergies Allergy/AdvReac Type Severity Reaction Status Date / Time Penicillins Allergy Rash Verified 11/04/24 06:27 [id number] Reductase AdvReac Severe Weakness Verified 11/04/24 06:27 Inhibitor Vital Signs Vital Signs - 24 hr 11/04/24 02:54 11/04/24 03:00 11/04/24 05:00 Temperature 97.9 F Pulse Rate 87 83 82 Respiratory Rate 19 14 15 Blood Pressure 172/104 H 177/112 H 166/107 H Pulse Oximetry 97 95 96 Oxygen Delivery Room Air 11/04/24 07:18 11/04/24 07:41 Temperature Pulse Rate 79 74 Respiratory Rate 13 16 Blood Pressure 165/101 H 155/104 H Pulse Oximetry 96 98 Oxygen Delivery Exam Const: General: comfortable Resp: Effort & Inspection: normal respiratory effort Auscultation: clear to auscultation bilaterally Cardio: Rate: regular rate and tachycardic Rhythm: regular rhythm GI: GI Palp: Yes Soft to palpation Auscultation: normal bowel sounds Skin: General skin exam: normal color Neuro: Motor exam (neuro): 5/5 motor strength present throughout Psych: Affect: normal affect H&P: Results Labs Labs: Short CBC 11/04/24 Range/Units 05:29 WBC 7.5 (4.5-10.0) K/mm3 Hgb 18.9 H (14.0-18.0) g/dL Hct 54.3 H (42.0-52.0) % Plt Count 127 L (150-375) k/mm3 [facility] 11/04/24 05:29 Sodium 138 Potassium 4.1 Chloride 101 Carbon Dioxide 26 BUN 20 Creatinine 1.07 Glucose 115 H Calcium 10.0 Cardiac Enzymes 11/04/24 Range/Units 05:29 Total Creatine Kinase 1050 H (55-170) U/L Liver Function 11/04/24 Range/Units 05:29 Total Bilirubin 0.9 (0.2-1.3) mg/dL AST 66 H (17-59) U/L ALT 70 H (6-50) U/L Alkaline Phosphatase 56 (38-126) U/L Albumin 4.7 (3.5-5.1) g/dL Urine 11/04/24 Range/Units 05:29 Urine Color Yellow (Yellow) Urine Appearance Clear (Clear) Urine pH 6.5 (5.0-9.0) Ur Specific [place] 1.020 (1.001-1.035) Urine Protein Negative (Negative) mg/dL Urine Glucose (UA) Negative (Negative) mg/dL Assessment and Plan Assessment and plan (1) Rhabdomyolysis: Code(s): M62.82 - Rhabdomyolysis Status: Acute (2) Left-sided Viveros's palsy: Code(s): G51.0 - Viveros's palsy Status: Acute Plan 49-year-old male with PMH/o htn, hld admitted for evaluation for elevated CPK increased generalized muscle weakness. Patient did have a change in the manufacture of his atorvastatin few weeks ago. Patient noticed he was having increased muscle weakness approximately 1 week ago. He also received Prevnar vaccination 10/12/2024 in his physician's office. noticed some left-sided facial droop. Patient denies any other focal numbness or weakness but does have generalized muscle weakness that he notices while walking. Patient denies any chest pain or shortness of breath. Patient was started on prednisone and valacyclovir in emergency department for suspected Viveros's palsy. We will continue them unless directed otherwise per neurology. Head CT was negative for acute intracranial abnormality. Patient was afebrile with no leukocytosis hemoglobin of 18.9. CMP is normal, liver enzyme elevated. Patient does have a elevated total creatinine kinase of 1000 and this was increased compared to his measurement of 800 that was collected yesterday as outpatient. Will order 1 l, LR. Patient's TSH is mildly elevated at 4.7. TSH was 2.17 per the previous records. UA was negative. MRI ordered to evaluate for the suspected Viveros's palsy and generalized weakness his bilateral lower extremities. -will check hgA1C Pt is full code. Home meds reviewed and reordered. Quality VTE Prophylaxis VTE prophylaxis: mechanical ordered
[2024-11-04 09:04] LABS: Total Triiodothyronine (T3) 1.51 NG/ML (0.97-1.69)
--- NOTE | 2024-11-04 11:59 | P.CONNEU_ITS ---
Assessment and Plan Assessment and plan (1) Left-sided Viveros's palsy: Code(s): G51.0 - Viveros's palsy Status: Acute (2) Statin-induced myositis: Code(s): M60.9 - Myositis, unspecified; T46.6X5A - Adverse effect of antihyperlipidemic and antiarteriosclerotic drugs, initial encounter Status: Acute Plan I am concerned about possibility of Gullain barre syndrome particularly since he has had a vaccination 10/12/2024. This can lead to proximal muscle weakness and he may have paresthesias in distal part of the legs. he states that he has had fall although he did not have any hard fall. Sometimes a fall can also lead to high CPK and so can statins but he has been on statin for 1/2 years. There is no prior history of weakness. Bilateral facial weakness can occur in GBS however he has a left-sided facial weakness. GBS should be borne in mind in terms of differential diagnosis. I would suggest an MRI of the brain . If this does not show any abnormality, spinal tap should be considered to investigate for Guellain Durant syndrome. Consult date: 11/04/24 HPI: Pavel Antony is a 49 year old male With history of for generalized weakness and difficulty in walking and falls over the last 1 week. He developed the left facial weakness last night. His CPK was found to 1000. He has been on atorvastatin 4-1/2 years. This was started when he was in [place] and he has moved down here and had a refill in September and states that today it is generic but from a different brand and he became suspicious the could this be the problem. he denies any bladder or bowel difficulties. No history of previous similar problems. he states that his CP gets going to from 800,000 the last 2 3 days. He has had a Prevnar vaccination 10/12/2024 in his physician's office. He has a bed alarm and place and the nursing staff are aware of the risk of falling. 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 He has been usually good health. No febrile illness. No problem the hearing or swallowing. It was noted that he was thought to have left Viveros's palsy and started on prednisone and acyclovir. Review of Systems 2 Constitutional: Constitutional: Denies chills, Denies fever(s) and Denies weight loss Eyes: Eyes: Denies diplopia and Denies loss of vision ENT: Denies dizziness, Denies hearing loss and Denies tinnitus Cardiovascular: Cardiovascular: Denies chest pain, Denies syncope and Denies dyspnea Respiratory: Respiratory: Denies cough, Denies dyspnea and Denies wheezing Gastrointestinal: Gastrointestinal: Denies abdominal pain, Denies change in bowel habits and Denies vomiting Genitourinary: Genitourinary: Denies urinary incontinence Musculoskeletal: Musculoskeletal: Denies joint swelling Comments: Tingling and numbness in his feet and some generalized muscle pain in both upper and lower limbs Integumentary/Breasts: Skin/Breast: Denies new lesions and Denies rash Neurologic: Reports as per HPI, Denies dizziness, Denies syncope and Denies loss of vision Psychiatric: Psychiatric: Denies anxiety and Denies depression Endocrine: Endocrine: Denies cold intolerance and Denies heat intolerance Hematologic/Lymphatic: Hematologic/Lymphatic: Denies easy bleeding and Denies easy bruising Allergic/Immunologic: Allergic/Immunologic: Denies no additional allergic/immunologic complaints and Denies wheezing PMFSH Past Medical History Medical History (Updated 11/04/24 @ 12:10 by Saad Parkinson MD) Statin-induced myositis Social History Social History Smoking status: Never smoker Alcohol intake: current Drinks per week: 3 Substance use: never Do You Feel Safe in your Home?: Yes Lack of Transportation: No Lack of Food: Never True Current Housing: I Have Housing Concerned About Future Housing: No Difficulty Paying Gas/Electric Bills: No Difficulty Paying for Meds: No Currently Unemployed: No Education: Bachelor's Degree Difficulty w/ Childcare or Family Care: No Gender identity (if verbalized by the patient): Male Sexual Orientation (if Verbalized by the Patient): Straight or Heterosexual Spiritual care concerns: No Meds Home Medications and Allergies Home Medications ?Medication ?Instructions ?Recorded ?Confirmed ?Type amlodipine 5 mg tablet 5 mg PO DAILY 11/04/24 11/04/24 History atorvastatin 10 mg tablet 10 mg PO DAILY 11/04/24 11/04/24 History chlorthalidone 25 mg tablet 12.5 mg PO DAILY 11/04/24 11/04/24 History inulin 2 gram chewable tablet 5 g PO BID 11/04/24 11/04/24 History ([employer]) telmisartan 40 mg tablet 60 mg PO DAILY 11/04/24 11/04/24 History Allergies Allergy/AdvReac Type Severity Reaction Status Date / Time Penicillins Allergy Rash Verified 11/04/24 06:27 [id number]-RPI-[id number] Reductase AdvReac Severe Weakness Verified 11/04/24 06:27 Inhibitor Vital Signs Vital Signs - 24 hr 11/04/24 02:54 11/04/24 03:00 11/04/24 05:00 Temperature 97.9 F Pulse Rate 87 83 82 Respiratory Rate 19 14 15 Blood Pressure 172/104 H 177/112 H 166/107 H Pulse Oximetry 97 95 96 Oxygen Delivery Room Air 11/04/24 07:18 11/04/24 07:41 11/04/24 08:00 Temperature 97.8 F Pulse Rate 79 74 78 Respiratory Rate 13 16 18 Blood Pressure 165/101 H 155/104 H 161/90 H Pulse Oximetry 96 98 94 Oxygen Delivery 11/04/24 09:17 11/04/24 09:44 Temperature Pulse Rate 88 Respiratory Rate 16 Blood Pressure Pulse Oximetry 98 Oxygen Delivery Room Air Exam 2 Const: General: no acute distress Orientation/consciousness: oriented to person, oriented to place and oriented to time HENMT: Head: normocephalic and atraumatic Ears: hearing grossly normal bilaterally and external ears normal Face/Nose/Sinus: Normal external nose present Mouth: Yes Normal oral and palatal mucosa present Other: infra nuclear left facial weakness Eyes: General: appearance normal, both eyes and all related structures E yelids: eyelids normal Conjunctivae: conjunctivae normal Pupils: Equal, round and reactive pupils present EOM: No Nystagmus present Neck: Neck: normal visual inspection Resp: Effort & Inspection: normal respiratory effort Skin: General skin exam: normal color Neuro: General: oriented to person, oriented to place and oriented to time Cranial nerves: Yes CN's II-XII intact bilaterally ( except for mild left infranuclear facial weakness), Yes Equal, round and reactive pupils present, Yes Bilaterally intact EOM present, Yes Nystagmus not present, Yes Normal facial strength present, Yes facial symmetry, Yes Midline tongue present, Yes Symmetric palate elevation present, Yes Normal hearing present, Yes Ability to bilaterally elevate shoulders present and No Nystagmus present Speech: normal speech M otor exam (neuro): 10/18 motor strength present throughout ( except for Minimal weakness of proximal muscles in upper lower limbs), Normal motor muscle tone present throughout and Motor abnormalities not present Sensory Exam: normal sensation Deep tendon reflexes (DTR's): Right triceps reflex intensity grade: 0, Left triceps reflex intensity grade: 0, Rt Biceps (C5, C6): 0, Left biceps reflex intensity grade: 0, Right brachioradialis reflex intensity grade: 0, Left brachioradialis reflex intensity grade: 0, Right patellar reflex intensity grade: 0, Left patellar reflex intensity grade: 0, Right ankle reflex intensity grade: 0 and Left ankle reflex intensity grade: 0 Coordination: f [id number] test normal Other: the patient is able to walk and go to the bathroom independently we feels unsteady while walking. Extrem: General: normal to inspection Psych: Appearance: grossly normal Mental Status: mental status grossly normal Affect: normal affect Attitude: cooperative Results Labs 11/04/24 05:29 11/04/24 05:29 Labs: Short CBC 11/04/24 Range/Units 05:29 WBC 7.5 (4.5-10.0) K/mm3 Hgb 18.9 H (14.0-18.0) g/dL Hct 54.3 H (42.0-52.0) % Plt Count 127 L (150-375) k/mm3 BMP 11/04/24 05:29 Sodium 138 Potassium 4.1 Chloride 101 Carbon Dioxide 26 BUN 20 Creatinine 1.07 Glucose 115 H Calcium 10.0 Cardiac Enzymes 11/04/24 Range/Units 05:29 Total Creatine Kinase 1050 H (55-170) U/L Liver Function 11/04/24 Range/Units 05:29 Total Bilirubin 0.9 (0.2-1.3) mg/dL AST 66 H (17-59) U/L ALT 70 H (6-50) U/L Alkaline Phosphatase 56 (38-126) U/L Albumin 4.7 (3.5-5.1) g/dL Urine 11/04/24 Range/Units 05:29 Urine Color Yellow (Yellow) Urine Appearance Clear (Clear) Urine pH 6.5 (5.0-9.0) Ur Specific [place] 1.020 (1.001-1.035) Urine Protein Negative (Negative) mg/dL Urine Glucose (UA) Negative (Negative) mg/dL
[2024-11-04] MEDS: CHLORTHALIDONE 12.5 MG TAB PO (12:48)
[2024-11-04] MEDS: TELMISARTAN 20 MG TABLET 60 MG PO (12:49)
[2024-11-04] MEDS: LACTATED RINGERS 1,000 ML 100 ML IV CONT (13:42)
[2024-11-04] MEDS: ACETAMINOPHEN 325 MG TABLET 650 MG PO (23:40)
[2024-11-05] VITALS (10 sets, daily range): BP systolic 94–171; BP diastolic 58–98; PULSE 73–107; RESP 16–20; TEMP 36.3–37.1; O2SAT 96–100
[2024-11-05] MEDS: ACETAMINOPHEN 325 MG TABLET 650 MG PO ×5 (04:06→22:15)
[2024-11-05 05:11] LABS: Basophils Percent Auto 0.3 % (0.2-1.2); Eosinophils Absolute Auto 0.1 K/mm3 (0-0.3); Eosinophils Percent Auto 0.9 % (0-4.4); Hematocrit 52.1 % (42.0-52.0); Hemoglobin 18.5 g/dL (14.0-18.0); Immature Granulocyte Absolute 0.06 K/mm3 (0.00-0.031); Immature Granulocyte Percent A 0.5 % (0-0.5); Lymphocytes Absolute Auto 2.52 K/mm3 (0.9-3.2); Lymphocytes Percent Auto 22.2 % (18.3-44.2); Mean Corpuscular HGB Conc 35.5 g/dl (32-36); Mean Corpuscular Hemoglobin 31.9 pg (26-34); Mean Corpuscular Volume 89.8 fl (80-100); Mean Platelet Volume 9.1 fl (7.4-10.4); Monocytes Absolute Auto 1.3 K/mm3 (0.1-0.6); Neutrophils Absolute Auto 7.4 K/mm3 (1.3-6.7); Neutrophils Percent Auto 65.1 % (45.5-73.1); Platelet Count Result 120 k/mm3 (150-375); Red Cell Distribution Width 12.8 % (11.5-14.5); White Blood Count 11.4 K/mm3 (4.5-10.0)
[2024-11-05 05:25] LABS: Hemoglobin A1C 5.4 % (<5.7)
[2024-11-05 05:28] LABS: Alanine Aminotransferase 63 U/L (6-50); Albumin Level 4.5 g/dL (3.5-5.1); Alkaline Phosphatase 53 U/L (38-126); Anion Gap 8 mmol/L (4-12); Aspartate Amino Transferase 59 U/L (17-59); Bilirubin,Total 1.2 mg/dL (0.2-1.3); Blood Urea Nitrogen 18 mg/dL (9-20); Calcium 9.2 mg/dL (8.4-10.2); Carbon Dioxide 25 mmol/L (22-30); Chloride 104 mmol/L (98-107); Estimated CRCL calculation 111 ml/min; Estimated Glomerular Filt Rate > 60; Glucose 110 mg/dL (65-110); Potassium 3.8 mmol/L (3.4-5.0); Sodium 137 mmol/L (137-145)
--- NOTE | 2024-11-05 08:24 | ECG_ITS ---
Test Date: 2024-11-05 08:27:46 Measurements Intervals [place] Rate: 82 P: 48 [place]: 167 QRS: 1 QRSD: 92 T: -6 QT: 344 QTc: 404 Interpretive Statements SINUS RHYTHM POSSIBLE LEFT ATRIAL ENLARGEMENT [-0.1mV P-WAVE IN V1/V2] NONSPECIFIC T WAVE ABNORMALITY Compared to ECG 11/04/2024 03:02:37 NO SIGNIFICANT CHANGES Electronically Signed On 11-05-2024 12:43:32 CDT by Nicole Martínez M.D.
[2024-11-05 08:31] LABS: Glucose Point of Care 135 mg/dl (65-105)
[2024-11-05 08:31] LABS: Glucose Point of Care 137 mg/dl (65-105)
[2024-11-05] MEDS: CHLORTHALIDONE 12.5 MG TAB PO (08:45)
[2024-11-05] MEDS: TELMISARTAN 20 MG TABLET 60 MG PO (08:45)
[2024-11-05] MEDS: predniSONE 20 MG TABLET 60 MG PO (08:45)
[2024-11-05] MEDS: LACTATED RINGERS 1,000 ML 999 ML IV CONT (08:45)
[2024-11-05] MEDS: FAMOTIDINE 20 MG/2 ML VIAL IV PUSH (08:54)
[2024-11-05] MEDS: LACTATED RINGERS 1,000 ML 125 ML IV CONT (09:33)
[2024-11-05] MEDS: amLODIPine BESYLATE 5 MG TABLET PO (10:32)
--- NOTE | 2024-11-05 11:24 | PM.IMPN ---
Progress Note: A&P Assessment and Plan (1) Rhabdomyolysis: Code(s): M62.82 - Rhabdomyolysis Status: Acute (2) Left-sided Viveros's palsy: Code(s): G51.0 - Viveros's palsy Status: Acute Plan 49-year-old male with PMH/o htn, hld admitted for evaluation for elevated CPK increased generalized muscle weakness. Patient did have a change in the manufacture of his atorvastatin few weeks ago. Patient noticed he was having increased muscle weakness approximately 1 week ago. He also received Prevnar vaccination 10/12/2024 in his physician's office. noticed some left-sided facial droop. Patient denies any other focal numbness or weakness but does have generalized muscle weakness that he notices while walking. Patient denies any chest pain or shortness of breath. Patient was started on prednisone and valacyclovir in emergency department for suspected Viveros's palsy. We will continue them unless directed otherwise per neurology. Head CT was negative for acute intracranial abnormality. Patient was afebrile with no leukocytosis hemoglobin of 18.9. CMP is normal, liver enzyme elevated. Patient does have a elevated total creatinine kinase of 1000 and this was increased compared to his measurement of 800 that was collected yesterday as outpatient. Will order 1 l, LR. Patient's TSH is mildly elevated at 4.7. TSH was 2.17 per the previous records. UA was negative. MRI ordered to evaluate for the suspected Viveros's palsy and generalized weakness his bilateral lower extremities. -will check hgA1C 11/05 -will order DIANA to rule out autoimmune disorder no fever, no stiffness to neck, negative Brudzinski sign - will add BC -continue to trend daily labs, VS - continue gentle hydration CK is trending down Pt is full code. Home meds reviewed and reordered. Time Spent With Patient Time with patient: Greater than 35 minutes Subjective Date/time seen: 11/05/24 11:24 Interval history: weakness Narrative: 49-year-old male with PMH/o htn, hld admitted for evaluation for elevated CPK increased generalized muscle weakness. Patient did have a change in the manufacture of his atorvastatin few weeks ago. Patient noticed he was having increased muscle weakness approximately 1 week ago. He also received Prevnar vaccination 10/12/2024 in his physician's office. He had some labs done few weeks ago; ESR, CRP-normal , wbc normal. Hg 19.7, hct 55.8. noticed some left-sided facial droop. Patient denies any other focal numbness or weakness but does have generalized muscle weakness that he notices while walking. Patient denies any chest pain or shortness of breath. Patient was started on prednisone and valacyclovir in emergency department for suspected Viveros's palsy. Head CT was negative for acute intracranial abnormality. Patient was afebrile with no leukocytosis hemoglobin of 18.9. CMP is normal, liver enzyme elevated. Patient does have a elevated total creatinine kinase of 1000 and this was increased compared to his measurement of 800 that was collected yesterday as outpatient. Patient's TSH is mildly elevated at 4.7. UA was negative for infection and urine was clear. MRI ordered to evaluate for the suspected Viveros's palsy and generalized weakness his bilateral lower extremities. Pt is non smoker, drinks 3 beers a week. 11/05- pt felt somewhat dizzy this am and when went to MRI, rapid was called as pt was drwosy, diaphoretic and dizzy. BP was 90/58. EKG was done, bs checked. Fluid bolus given. Pt had been observed with continuous pulse ox and frequent VS. at bedside, updates given. Plan for LP in am. he is feeling better now, alert, and not dizzy. Still achy and muscle pain. Review of Systems Review of Systems: All systems reviewed & are unremarkable except as noted in HPI and below Musculoskeletal: Musculoskeletal: Reports myalgias Comments: peripheral muscle pain Exam Const: General: comfortable Resp: Effort & Inspection: normal respiratory effort Auscultation: clear to auscultation bilaterally Cardio: Rate: regular rate and tachycardic Rhythm: regular rhythm GI: Auscultation: normal bowel sounds Skin: General skin exam: normal color Neuro: Motor exam (neuro): 5/5 motor strength present throughout Psych: Affect: normal affect Objective Data Vital Signs Vital Signs: Vital Signs - 24 hr 11/04/24 12:00 11/04/24 12:02 11/04/24 16:00 Temperature 97.9 F 97.6 F Pulse Rate 105 H 92 102 H Respiratory Rate 18 18 Blood Pressure 161/107 H 153/97 H Pulse Oximetry 96 95 Oxygen Delivery 11/04/24 16:02 11/04/24 20:00 11/04/24 20:00 Temperature 98.8 F Pulse Rate 116 H 106 H 102 H Respiratory Rate 18 Blood Pressure 166/86 H Pulse Oximetry 98 Oxygen Delivery 11/05/24 00:00 11/05/24 00:00 11/05/24 04:00 Temperature 97.9 F Pulse Rate 88 88 94 Respiratory Rate 16 Blood Pressure 170/83 H Pulse Oximetry 97 Oxygen Delivery 11/05/24 04:00 11/05/24 08:15 11/05/24 08:20 Temperature 98.8 F Pulse Rate 90 85 84 Respiratory Rate 16 17 20 Blood Pressure 142/87 H 94/58 L 134/90 Pulse Oximetry 97 99 Oxygen Delivery Room Air 11/05/24 08:25 11/05/24 09:30 11/05/24 10:14 Temperature 97.3 F L Pulse Rate 85 77 Respiratory Rate 18 16 Blood Pressure 136/81 171/87 H Pulse Oximetry 100 96 99 Oxygen Delivery Room Air Intake/Output Intake/Output: Intake & Output 11/02/24 11/03/24 11/04/24 11/05/24 23:59 23:59 23:59 23:59 Intake Total 3910 341.7 Balance 3910 341.7 Meds/Results Medications: Active Medications Generic Name Dose Route Start Last Admin Trade Name Freq PRN Reason Stop Dose Admin Acetaminophen 650 mg 11/04/24 23:33 11/05/24 10:30 Acetaminophen 325 Mg Tablet PO 650 mg Q4H PRN Administration Mild Pain (1-3) or Fever Amlodipine Besylate 5 mg 11/05/24 09:00 11/05/24 10:32 Amlodipine Besylate 5 Mg Tablet PO 5 mg DAILY MICHAEL Administration Chlorthalidone 12.5 mg 11/04/24 12:40 11/05/24 08:45 Chlorthalidone 12.5 Mg Tab PO 12.5 mg DAILY MICHAEL Administration Lactated Ringer's 1,000 mls @ 125 mls/hr 11/05/24 09:05 11/05/24 10:17 Lr - Lactated Ringers Iv IV CONT 0 mls/hr .Q8H MICHAEL Infusion Ondansetron HCl 4 mg 11/05/24 10:51 Ondansetron Inj 4 Mg/2 Ml Vial IV PUSH Q6H PRN Nausea And Vomiting Perflutren Lipid Microsphere 0 ml 05/22/25 06:23 Perflutren Lipid Microspheres 1.5 Ml Vial Diluted To 10 Ml Total Volume IV PUSH 11/07/24 06:24 ONCE PRN adequate visualization Protocol Prednisone 60 mg 11/05/24 08:00 11/05/24 08:45 Prednisone 20 Mg Tablet PO 60 mg DAILY@08 MICHAEL Administration Telmisartan 60 mg 11/04/24 12:40 11/05/24 08:45 Telmisartan 20 Mg Tablet PO 60 mg DAILY MICHAEL Administration Radiology Results: ITS Impressions Head CT 11/04/24 05:29 Impression: No significant abnormality seen. Brain MRI 11/05/24 08:43 IMPRESSION: 1. Normal brain. No acute intracranial process. Labs Labs: Laboratory Results - last 24 hr 11/05/24 11/05/24 11/05/24 04:45 08:11 08:23 WBC 11.4 H RBC 5.80 Hgb 18.5 H Hct 52.1 H MCV 89.8 MCH 31.9 MCHC 35.5 RDW 12.8 Plt Count 120 L MPV 9.1 Immature Gran % (Auto) 0.5 Neut % (Auto) 65.1 Lymph % (Auto) 22.2 [place]aines % (Auto) 11.0 H Eos % (Auto) 0.9 Baso % (Auto) 0.3 Lymph # (Auto) 2.52 [place] # (Auto) 1.3 H Eos # (Auto) 0.1 Baso # (Auto) 0.0 Abs Immat Gran (auto) 0.06 H Absolute Neuts (auto) 7.4 H Absolute Nucleated RBC 0.000 Nucleated RBC % 0.0 Sodium 137 Potassium 3.8 Chloride 104 Carbon Dioxide 25 Anion Gap 8 BUN 18 Creatinine 0.88 Estim Creat Clear Calc 111 Estimated GFR > 60 Glucose 110 POC Capillary Glucose 137 H 135 H Hemoglobin A1c 5.4 Calcium 9.2 Magnesium 2.0 Total Bilirubin 1.2 AST 59 ALT 63 H Alkaline Phosphatase 53 Total Protein 7.0 Albumin 4.5 Quality VTE Prophylaxis VTE prophylaxis: mechanical ordered
[2024-11-05] MEDS: ONDANSETRON INJ 4 MG/2 ML VIAL IV PUSH (11:43)
[2024-11-05 12:01] LABS: Creatine Kinase 426 U/L (55-170)
--- NOTE | 2024-11-05 15:17 | CY_PTH ---
PATIENT: Pavel Antony LOC: [id number] U#:[id number] AGE/SX: 49/M ROOM: 250 RE11/05/[address]: Romana Guardado APRN : 1975 BED: 01 DIS: 11/11/2024 SPEC #: [id number] RECD: 11/09/24 09:11 STATUS: LUCIO RENolan #: [id number] PHIL: 11/05/24 15:[address]: Renzo Ortiz DEPT: [facility] Cytology RECD BY: Tayler Elizalde ENTERED: 11/09/24 09:11 SP TYPE: Cytology OTHR DR: MD Saad Mcmanus MD Danielle N Rennie, DRAG OUT MAN Tissues: A - CSF Procedures: Cytopathology Cytospin
[2024-11-05] MEDS: SODIUM CHLORIDE 0.9% IV 1,000 ML 50 ML IV CONT (18:31)
[2024-11-06] VITALS (12 sets, daily range): BP systolic 143–174; BP diastolic 63–99; PULSE 83–116; RESP 16–18; TEMP 36.4–36.9; O2SAT 95–100
[2024-11-06] MEDS: ACETAMINOPHEN 325 MG TABLET 650 MG PO ×4 (02:34→22:08)
[2024-11-06 04:51] LABS: Basophils Percent Auto 0.3 % (0.2-1.2); Eosinophils Percent Auto 0.4 % (0-4.4); Hematocrit 50.1 % (42.0-52.0); Hemoglobin 17.9 g/dL (14.0-18.0); Immature Granulocyte Absolute 0.06 K/mm3 (0.00-0.031); Immature Granulocyte Percent A 0.5 % (0-0.5); Lymphocytes Absolute Auto 2.16 K/mm3 (0.9-3.2); Lymphocytes Percent Auto 19.3 % (18.3-44.2); Mean Corpuscular HGB Conc 35.7 g/dl (32-36); Mean Corpuscular Hemoglobin 32.1 pg (26-34); Mean Corpuscular Volume 89.8 fl (80-100); Mean Platelet Volume 9.2 fl (7.4-10.4); Monocytes Absolute Auto 1.3 K/mm3 (0.1-0.6); Neutrophils Absolute Auto 7.5 K/mm3 (1.3-6.7); Neutrophils Percent Auto 67.5 % (45.5-73.1); Platelet Count Result 123 k/mm3 (150-375); Red Blood Count 5.58 M/mm3 (4.6-6.20); Red Cell Distribution Width 12.5 % (11.5-14.5); White Blood Count 11.2 K/mm3 (4.5-10.0)
[2024-11-06 05:07] LABS: Alanine Aminotransferase 55 U/L (6-50); Albumin Level 4.3 g/dL (3.5-5.1); Alkaline Phosphatase 53 U/L (38-126); Anion Gap 9 mmol/L (4-12); Aspartate Amino Transferase 46 U/L (17-59); Bilirubin,Total 0.9 mg/dL (0.2-1.3); Blood Urea Nitrogen 20 mg/dL (9-20); Calcium 8.9 mg/dL (8.4-10.2); Carbon Dioxide 25 mmol/L (22-30); Chloride 102 mmol/L (98-107); Estimated CRCL calculation 109 ml/min; Estimated Glomerular Filt Rate > 60; Glucose 111 mg/dL (65-110); Magnesium 2.3 mg/dL (1.6-2.3); Potassium 3.8 mmol/L (3.4-5.0); Sodium 136 mmol/L (137-145)
[2024-11-06] MEDS: amLODIPine BESYLATE 5 MG TABLET PO (09:20)
[2024-11-06] MEDS: CHLORTHALIDONE 12.5 MG TAB PO (09:20)
[2024-11-06] MEDS: TELMISARTAN 20 MG TABLET 60 MG PO (09:20)
[2024-11-06] MEDS: predniSONE 20 MG TABLET 60 MG PO (09:21)
--- NOTE | 2024-11-06 09:52 | P.PNIM_ITS ---
Progress Note: A&P Assessment and Plan (1) Rhabdomyolysis: Code(s): M62.82 - Rhabdomyolysis Status: Acute (2) Left-sided Viveros's palsy: Code(s): G51.0 - Viveros's palsy Status: Acute Plan 49-year-old male with PMH/o htn, hld admitted for evaluation for elevated CPK increased generalized muscle weakness. Patient did have a change in the manufac ture of his atorvastatin few weeks ago. Patient noticed he was having increased muscle weakness approximately 1 week ago. He also received Prevnar vaccination 10/12/2024 in his physician's office. noticed some left-sided facial droop. Patient denies any other focal numbness or weakness but does have generalized muscle weakness that he notices while walking. Patient denies any chest pain or shortness of breath. Patient was started on prednisone and valacyclovir in emergency department for suspected Viveros's palsy. We will continue them unless directed otherwise per neurology. Head CT was negative for acute intracranial abnormality. Patient was afebrile with no leukocytosis hemoglobin of 18.9. CMP is normal, liver enzyme elevated. Patient does have a elevated total creatinine kinase of 1000 and this was increased compared to his measurement of 800 that was collected yesterday as outpatient. Will order 1 l, LR. Patient's TSH is mildly elevated at 4.7. TSH was 2.17 per the previous records. UA was negative. MRI ordered to evaluate for the suspected Viveros's palsy and generalized weakness his bilateral lower extremities. -will check hgA1C 11/05 -will order DIANA to rule out autoimmune disorder no fever, no stiffness to neck, negative Brudzinski sign - will add BC -continue to trend daily labs, VS - continue gentle hydration CK is trending down 11/06 LP today BC prelim negat. no fevers BP more stable repeat CK-ordered 0.9 ns at 50 Pt is full code. Home meds reviewed and reordered. Subjective Date/time seen: 11/06/24 09:52 Interval history: weakness Narrative: 49-year-old male with PMH/o htn, hld admitted for evaluation for elevated CPK increased generalized muscle weakness. Patient did have a change in the manufacture of his atorvastatin few weeks ago. Patient noticed he was having increased muscle weakness approximately 1 week ago. He also received Prevnar vaccination 10/12/2024 in his physician's office. He had some labs done few weeks ago; ESR, CRP-normal , wbc normal. Hg 19.7, hct 55.8. noticed some left-sided facial droop. Patient denies any other focal numbness or weakness but does have generalized muscle weakness that he notices while walking. Patient denies any chest pain or shortness of breath. Patient was started on prednisone and valacyclovir in emergency department for suspected Viveros's palsy. Head CT was negative for acute intracranial abnormality. Patient was afebrile with no leukocytosis hemoglobin of 18.9. CMP is normal, liver enzyme elevated. Patient does have a elevated total creatinine kinase of 1000 and this was increased compared to his measurement of 800 that was collected yesterday as outpatient. Patient's TSH is mildly elevated at 4.7. UA was negative for infection and urine was clear. MRI ordered to evaluate for the suspected Viveros's palsy and generalized weakness his bilateral lower extremities. Pt is non smoker, drinks 3 beers a week. 11/05- pt felt somewhat dizzy this am and when went to MRI, rapid was called as pt was drowsy, diaphoretic and dizzy. BP was 90/58. EKG was done, bs checked. Fluid bolus given. Pt had been observed with continuous pulse ox and frequent VS. at bedside, updates given. Plan for LP in am. he is feeling better now, alert, and not dizzy. Still achy and muscle pain. 11/06- LP today. Pt is feeling a it better, still weak, but was able to walk with walker and PT. BC collected yesterday- so far neg. no fevers. Review of Systems Review of Systems: All systems reviewed & are unremarkable except as noted in HPI and below Musculoskeletal: Musculoskeletal: Reports myalgias Exam Const: General: comfortable Resp: Effort & Inspection: normal respiratory effort Auscultation: clear to auscultation bilaterally Cardio: Rate: regular rate and tachycardic Rhythm: regular rhythm GI: Auscultation: normal bowel sounds Skin: General skin exam: normal color Neuro: Motor exam (neuro): 5/5 motor strength present throughout Psych: Affect: normal affect Objective Data Vital Signs Vital Signs: Vital Signs - 24 hr 11/05/24 10:14 11/05/24 12:00 11/05/24 12:00 Temperature 97.3 F L 97.7 F Pulse Rate 77 85 92 Respiratory Rate 16 18 Blood Pressure 171/87 H 165/98 H Pulse Oximetry 99 98 11/05/24 16:00 11/05/24 16:00 11/05/24 20:00 Temperature 97.8 F 98.7 F Pulse Rate 94 90 73 Respiratory Rate 18 16 Blood Pressure 161/97 H 153/84 H Pulse Oximetry 98 97 11/05/24 20:00 11/06/24 00:00 11/06/24 00:00 Temperature 97.6 F Pulse Rate 107 H 94 88 Respiratory Rate 16 Blood Pressure 174/63 H Pulse Oximetry 98 11/06/24 04:00 11/06/24 04:00 Temperature 97.7 F Pulse Rate 93 89 Respiratory Rate 16 Blood Pressure 143/77 H Pulse Oximetry 100 Intake/Output Intake/Output: Intake & Output 11/03/24 11/04/24 11/05/24 11/06/24 23:59 23:59 23:59 23:59 Intake Total 3910 581.7 Output Total 900 200 Balance 3910 -318.3 -200 Meds/Results Medications: Active Medications Generic Name Dose Route Start Last Admin Trade Name Freq PRN Reason Stop Dose Admin Acetaminophen 650 mg 11/04/24 23:33 11/06/24 02:34 Acetaminophen 325 Mg Tablet PO 650 mg Q4H PRN Administration Mild Pain (1-3) or Fever Amlodipine Besylate 5 mg 11/05/24 09:00 11/06/24 09:20 Amlodipine Besylate 5 Mg Tablet PO 5 mg DAILY MICHAEL Administration Chlorthalidone 12.5 mg 11/04/24 12:40 11/06/24 09:20 Chlorthalidone 12.5 Mg Tab PO 12.5 mg DAILY MICHAEL Administration Sodium Chloride 1,000 mls @ 50 mls/hr 11/05/24 19:00 11/05/24 18:31 Normal Saline Iv IV CONT 50 mls/hr .Q20H MICHAEL Administration Ondansetron HCl 4 mg 11/05/24 10:51 11/05/24 11:43 Ondansetron Inj 4 Mg/2 Ml Vial IV PUSH 4 mg Q6H PRN Administration Nausea And Vomiting Perflutren Lipid Microsphere 0 ml 11/04/24 06:23 Perflutren Lipid Microspheres 1.5 Ml Vial Diluted To 10 Ml Total Volume IV PUSH 11/07/24 06:24 ONCE PRN adequate visualization Protocol Prednisone 60 mg 11/05/24 08:00 11/06/24 09:21 Prednisone 20 Mg Tablet PO 60 mg DAILY@08 MICHAEL Administration Telmisartan 60 mg 11/04/24 12:40 11/06/24 09:20 Telmisartan 20 Mg Tablet PO 60 mg DAILY MICHAEL Administration Radiology Results: ITS Impressions Head CT 11/04/24 05:29 Impression: No significant abnormality seen. Brain MRI 11/05/24 08:43 IMPRESSION: 1. Normal brain. No acute intracranial process. Labs Labs: Laboratory Results - last 24 hr 11/05/24 11/06/24 11:46 04:43 WBC 11.2 H RBC 5.58 Hgb 17.9 Hct 50.1 MCV 89.8 MCH 32.1 MCHC 35.7 RDW 12.5 Plt Count 123 L MPV 9.2 Immature Gran % (Auto) 0.5 Neut % (Auto) 67.5 Lymph % (Auto) 19.3 [place] % (Auto) 12.0 H Eos % (Auto) 0.4 Baso % (Auto) 0.3 Lymph # (Auto) 2.16 [place] # (Auto) 1.3 H Eos # (Auto) 0.0 Baso # (Auto) 0.0 Abs Immat Gran (auto) 0.06 H Absolute Neuts (auto) 7.5 H Absolute Nucleated RBC 0.000 Nucleated RBC % 0.0 Sodium 136 L Potassium 3.8 Chloride 102 Carbon Dioxide 25 Anion Gap 9 BUN 20 Creatinine 0.90 Estim Creat Clear Calc 109 Estimated GFR > 60 Glucose 111 H Calcium 8.9 Magnesium 2.3 Total Bilirubin 0.9 AST 46 ALT 55 H Alkaline Phosphatase 53 Total Creatine Kinase 426 H Total Protein 7.0 Albumin 4.3 Quality VTE Prophylaxis VTE prophylaxis: mechanical ordered
[2024-11-06 14:02] LABS: Prothrombin Time 13.7 Seconds (11.1-14.7)
--- NOTE | 2024-11-06 15:01 | WPDNEUROPN ---
Progress Note: A&P Assessment and Plan (1) Left-sided Viveros's palsy: Code(s): G51.0 - Viveros's palsy Status: Acute (2) Statin-induced myositis: Code(s): M60.9 - Myositis, unspecified; T46.6X5A - Adverse effect of antihyperlipidemic and antiarteriosclerotic drugs, initial encounter Status: Acute Plan The possibility of GBS should be considered in view of the persistent difficulty in walking and raising his arms above his head. a spinal tap is recommended and based upon the finding we can make further decision. His work with the physical therapist. I also found out that he had a brief period of weakness after he had MRI. It was thought to be vasovagal attack. He improved but he has been on IV fluids. Subjective Date/time seen: 11/06/24 15:01 Interval history: Patient is a 49-year-old with the complaints of difficult in walking and raising his arms above his head he continues to have some weakness. He when he walks he still feels has a sense of imbalance. His CPK is down to 426 yesterday. He states that his blood pressure seems to fluctuate. Left side of the face still feels weak. No difficulty with speech or swallowing. He remains mentally clear no bladder disturbance. MRI of the brain was performed yesterday which did not show any significant abnormalities. EKG shows sinus rhythm and possible left atrial enlargement and nonspecific T of wave abnormality. Review of Systems Review of Systems: All systems reviewed & are unremarkable except as noted in HPI and below Exam Narrative: Fully conscious alert oriented to self time place and person. Speech is fluent and articulate. No aphasia or dysarthria. Examination head and neck shows no evidence of external injuries. There is a left facial weakness which appears to be in for a nuclear type. Tongue was midline. Facial sensation intact. Visual stone by confrontation are normal. Other cranial nerves within normal limits. Motor system seems to have difficulty raising his arm above the head. The weakness in upper lower limbs appears slightly more in the upper than lower limbs and more proximal than distal however sensory examination was unremarkable. No involuntary movements are seen. Deep tendon reflexes are decreased at knees and ankles however no asymmetry was noted. Objective Data Vital Signs Vital Signs: Vital Signs - 24 hr 11/05/24 16:00 11/05/24 16:00 11/05/24 20:00 Temperature 97.8 F 98.7 F Pulse Rate 94 90 73 Respiratory Rate 18 16 Blood Pressure 161/97 H 153/84 H Pulse Oximetry 98 97 Oxygen Delivery 11/05/24 20:00 11/06/24 00:00 11/06/24 00:00 Temperature 97.6 F Pulse Rate 107 H 94 88 Respiratory Rate 16 Blood Pressure 174/63 H Pulse Oximetry 98 Oxygen Delivery 11/06/24 04:00 11/06/24 04:00 11/06/24 08:00 Temperature 97.7 F 98.4 F Pulse Rate 93 89 100 Respiratory Rate 16 16 Blood Pressure 143/77 H 149/84 H Pulse Oximetry 100 96 Oxygen Delivery 11/06/24 08:00 11/06/24 08:00 11/06/24 10:50 Temperature Pulse Rate 94 Respiratory Rate Blood Pressure Pulse Oximetry Oxygen Delivery Room Air Room Air 11/06/24 12:00 Temperature 97.6 F Pulse Rate 105 H Respiratory Rate 16 Blood Pressure 158/91 H Pulse Oximetry 98 Oxygen Delivery Intake/Output Intake/Output: Intake & Output 11/03/24 11/04/24 11/05/24 11/06/24 23:59 23:59 23:59 23:59 Intake Total 3910 581.7 480 Output Total 900 200 Balance 3910 -318.3 280 Meds/Results Medications: Active Medications Generic Name Dose Route Start Last Admin Trade Name Freq PRN Reason Stop Dose Admin Acetaminophen 650 mg 11/04/24 23:33 11/06/24 11:40 Acetaminophen 325 Mg Tablet PO 650 mg Q4H PRN Administration Mild Pain (1-3) or Fever Amlodipine Besylate 5 mg 11/05/24 09:00 11/06/24 09:20 Amlodipine Besylate 5 Mg Tablet PO 5 mg DAILY MICHAEL Administration Chlorthalidone 12.5 mg 11/04/24 12:40 11/06/24 09:20 Chlorthalidone 12.5 Mg Tab PO 12.5 mg DAILY MICHAEL Administration Sodium Chloride 1,000 mls @ 50 mls/hr 11/05/24 19:00 11/05/24 18:31 Normal Saline Iv IV CONT 50 mls/hr .Q20H MICHAEL Administration Ondansetron HCl 4 mg 11/05/24 10:51 11/05/24 11:43 Ondansetron Inj 4 Mg/2 Ml Vial IV PUSH 4 mg Q6H PRN Administration Nausea And Vomiting Perflutren Lipid Microsphere 0 ml 11/04/24 06:23 Perflutren Lipid Microspheres 1.5 Ml Vial Diluted To 10 Ml Total Volume IV PUSH 11/07/24 06:24 ONCE PRN adequate visualization Protocol Prednisone 60 mg 11/05/24 08:00 11/06/24 09:21 Prednisone 20 Mg Tablet PO 60 mg DAILY@08 MICHAEL Administration Telmisartan 60 mg 11/04/24 12:40 11/06/24 09:20 Telmisartan 20 Mg Tablet PO 60 mg DAILY MICHAEL Administration Radiology Results: ITS Impressions Head CT 11/04/24 05:29 Impression: No significant abnormality seen. Brain MRI 11/05/24 08:43 IMPRESSION: 1. Normal brain. No acute intracranial process. Labs Labs: Laboratory Results - last 24 hr 11/06/24 11/06/24 04:43 13:46 WBC 11.2 H RBC 5.58 Hgb 17.9 Hct 50.1 MCV 89.8 MCH 32.1 MCHC 35.7 RDW 12.5 Plt Count 123 L MPV 9.2 Immature Gran % (Auto) 0.5 Neut % (Auto) 67.5 Lymph % (Auto) 19.3 [place] % (Auto) 12.0 H Eos % (Auto) 0.4 Baso % (Auto) 0.3 Lymph # (Auto) 2.16 [place] # (Auto) 1.3 H Eos # (Auto) 0.0 Baso # (Auto) 0.0 Abs Immat Gran (auto) 0.06 H Absolute Neuts (auto) 7.5 H Absolute Nucleated RBC 0.000 Nucleated RBC % 0.0 PT 13.7 INR 1.0 Sodium 136 L Potassium 3.8 Chloride 102 Carbon Dioxide 25 Anion Gap 9 BUN 20 Creatinine 0.90 Estim Creat Clear Calc 109 Estimated GFR > 60 Glucose 111 H Calcium 8.9 Magnesium 2.3 Total Bilirubin 0.9 AST 46 ALT 55 H Alkaline Phosphatase 53 Total Protein 7.0 Albumin 4.3
[2024-11-06 15:28] LABS: Glucose CSF 66 mg/dL (40-70); Total Protein CSF 267 mg/dL (12-60)
[2024-11-06] MEDS: SODIUM CHLORIDE 0.9% IV 1,000 ML 50 ML IV CONT (16:10)
[2024-11-06 16:29] LABS: Appearance CSF Clear (Clear); CSF source CSF; Color CSF Colorless (Colorless)
[2024-11-06 16:30] LABS: Nucleated Cell CSF 1 /uL (0-5); Red Blood Cell CSF 8 (0-2)
[2024-11-06 16:44] LABS: Lymphocytes CSF 54 % (40-80); Monocytes CSF 43 % (15-45); Neutrophils CSF 3 % (0-6)
[2024-11-06] MEDS: PREMIXIV IVPB (18:20)
[2024-11-06] MEDS: IMMUNE GLOBULIN IVPB (18:20)
[2024-11-07] VITALS (12 sets, daily range): BP systolic 146–173; BP diastolic 77–89; PULSE 81–105; RESP 16–20; TEMP 36.6–37.1; O2SAT 96–100
[2024-11-07] MEDS: ACETAMINOPHEN 325 MG TABLET 650 MG PO ×2 (02:26→06:28)
[2024-11-07 05:31] LABS: Basophils Percent Auto 0.2 % (0.2-1.2); Eosinophils Absolute Auto 0.1 K/mm3 (0-0.3); Eosinophils Percent Auto 0.7 % (0-4.4); Hematocrit 51.7 % (42.0-52.0); Hemoglobin 17.7 g/dL (14.0-18.0); Immature Granulocyte Percent A 1.1 % (0-0.5); Lymphocytes Absolute Auto 2.01 K/mm3 (0.9-3.2); Lymphocytes Percent Auto 22.8 % (18.3-44.2); Mean Corpuscular HGB Conc 34.2 g/dl (32-36); Mean Corpuscular Hemoglobin 31.9 pg (26-34); Mean Corpuscular Volume 93.2 fl (80-100); Mean Platelet Volume 9.3 fl (7.4-10.4); Monocytes Absolute Auto 1.1 K/mm3 (0.1-0.6); Neutrophils Absolute Auto 5.6 K/mm3 (1.3-6.7); Neutrophils Percent Auto 63.2 % (45.5-73.1); Platelet Count Result 124 k/mm3 (150-375); Red Blood Count 5.55 M/mm3 (4.6-6.20); Red Cell Distribution Width 12.7 % (11.5-14.5); White Blood Count 8.8 K/mm3 (4.5-10.0)
[2024-11-07 05:38] LABS: Alanine Aminotransferase 47 U/L (6-50); Albumin Level 4.3 g/dL (3.5-5.1); Alkaline Phosphatase 47 U/L (38-126); Anion Gap 9 mmol/L (4-12); Aspartate Amino Transferase 45 U/L (17-59); Bilirubin,Total 0.9 mg/dL (0.2-1.3); Blood Urea Nitrogen 25 mg/dL (9-20); Calcium 8.6 mg/dL (8.4-10.2); Carbon Dioxide 25 mmol/L (22-30); Chloride 103 mmol/L (98-107); Estimated CRCL calculation 105 ml/min; Estimated Glomerular Filt Rate > 60; Glucose 97 mg/dL (65-110); Magnesium 2.3 mg/dL (1.6-2.3); Potassium 3.9 mmol/L (3.4-5.0); Sodium 137 mmol/L (137-145)
--- NOTE | 2024-11-07 07:14 | P.PNIM_ITS ---
Progress Note: A&P Assessment and Plan (1) Rhabdomyolysis: Code(s): M62.82 - Rhabdomyolysis Status: Acute (2) Left-sided Viveros's palsy: Code(s): G51.0 - Viveros's palsy Status: Acute Plan 49-year-old male with PMH/o htn, hld admitted for evaluation for elevated CPK increased generalized muscle weakness. Patient did have a change in the manufac ture of his atorvastatin few weeks ago. Patient noticed he was having increased muscle weakness approximately 1 week ago. He also received Prevnar vaccination 10/12/2024 in his physician's office. noticed some left-sided facial droop. Patient denies any other focal numbness or weakness but does have generalized muscle weakness that he notices while walking. Patient denies any chest pain or shortness of breath. Patient was started on prednisone and valacyclovir in emergency department for suspected Viveros's palsy. We will continue them unless directed otherwise per neurology. Head CT was negative for acute intracranial abnormality. Patient was afebrile with no leukocytosis hemoglobin of 18.9. CMP is normal, liver enzyme elevated. Patient does have a elevated total creatinine kinase of 1000 and this was increased compared to his measurement of 800 that was collected yesterday as outpatient. Will order 1 l, LR. Patient's TSH is mildly elevated at 4.7. TSH was 2.17 per the previous records. UA was negative. MRI ordered to evaluate for the suspected Viveros's palsy and generalized weakness his bilateral lower extremities. -will check hgA1C 11/05 -will order DIANA to rule out autoimmune disorder no fever, no stiffness to neck, negative Brudzinski sign - will add BC -continue to trend daily labs, VS - continue gentle hydration CK is trending down 11/06 LP today BC prelim negat. no fevers BP more stable repeat CK-ordered 0.9 ns at 50 11/07 WBC improved today CK trending down- 313 immunoglobulin x 5 bags ordered per neurology continue to work with PT/OT Pt is full code. Home meds reviewed and reordered. Subjective Date/time seen: 11/07/24 07:14 Interval history: 49-year-old male with PMH/of htn, hld admitted for evaluation for elevated CPK increased generalized muscle weakness. Patient did have a change in the manufacture of his atorvastatin few weeks ago. Patient noticed he was having increased muscle weakness approximately 1 week ago. He also received Prevnar vaccination 10/12/2024 in his physician's office. He had some labs done few weeks ago; ESR, CRP-normal , wbc normal. Hg 19.7, hct 55.8. Patient was started on prednisone and valacyclovir in emergency department for suspected Viveros's palsy. Head CT was negative for acute intracranial abnormality. Patient was afebrile with no leukocytosis hemoglobin of 18.9. CMP is normal, liver enzyme elevated. Patient does have a elevated total creatinine kinase of 1000 and this was increased compared to his measurement of 800 that was collected yesterday as outpatient. Patient's TSH is mildly elevated at 4.7. UA was negative for infection and urine was clear. MRI ordered to evaluate for the suspected Viveros's palsy and generalized weakness his bilateral lower extremities. Pt is non smoker, drinks 3 beers a week. 11/05- pt felt somewhat dizzy this am and when went to MRI, rapid was called as pt was drowsy, diaphoretic and dizzy. BP was 90/58. EKG was done, bs checked. Fluid bolus given. Pt had been observed with continuous pulse ox and frequent VS. at bedside, updates given. Plan for LP in am. he is feeling better now, alert, and not dizzy. Still achy and muscle pain. 11/06- LP today. Pt is feeling a it better, still weak, but was able to walk with walker and PT. BC collected yesterday- so far neg. no fevers. 11/07- WBC 8.8, liver enzymes are back to normal. WBC normal, ck is down to 313. Working with PT/OT. Had LP yesterday, tolerated well. Review of Systems Review of Systems: ROM is better, muscle strength is improving. All systems reviewed & are unremarkable except as noted in HPI and below Musculoskeletal: Musculoskeletal: Reports myalgias Exam Const: General: comfortable Resp: Effort & Inspection: normal respiratory effort Auscultation: clear to auscultation bilaterally Cardio: Rate: regular rate and tachycardic Rhythm: regular rhythm GI: Auscultation: normal bowel sounds Skin: General skin exam: normal color Neuro: Motor exam (neuro): 5/5 motor strength present throughout Psych: Affect: normal affect Objective Data Vital Signs Vital Signs: Vital Signs - 24 hr 11/06/24 08:00 11/06/24 08:00 11/06/24 08:00 Temperature 98.4 F Pulse Rate 100 94 Respiratory Rate 16 Blood Pressure 149/84 H Pulse Oximetry 96 Oxygen Delivery Room Air 11/06/24 10:50 11/06/24 12:00 11/06/24 12:00 Temperature 97.6 F Pulse Rate 105 H 92 Respiratory Rate 16 Blood Pressure 158/91 H Pulse Oximetry 98 Oxygen Delivery Room Air 11/06/24 15:31 11/06/24 15:32 11/06/24 16:00 Temperature Pulse Rate 116 H 100 94 Respiratory Rate 16 16 Blood Pressure 159/99 H 147/88 H Pulse Oximetry 96 95 Oxygen Delivery 11/06/24 16:00 11/06/24 18:40 11/06/24 20:00 Temperature 97.6 F 97.8 F 98.5 F Pulse Rate 96 86 98 Respiratory Rate 16 16 18 Blood Pressure 160/86 H 146/81 H 170/94 H Pulse Oximetry 95 96 96 Oxygen Delivery 11/06/24 20:01 11/06/24 21:41 11/06/24 23:19 Temperature Pulse Rate 83 Respiratory Rate Blood Pressure Pulse Oximetry 96 96 Oxygen Delivery Room Air Room Air 11/07/24 00:03 11/07/24 00:40 11/07/24 04:01 Temperature 98.4 F Pulse Rate 85 81 94 Respiratory Rate 16 Blood Pressure 150/77 H Pulse Oximetry 99 Oxygen Delivery 11/07/24 04:57 Temperature 98.7 F Pulse Rate 82 Respiratory Rate 16 Blood Pressure 146/83 H Pulse Oximetry 98 Oxygen Delivery Intake/Output Intake/Output: Intake & Output 11/04/24 11/05/24 11/06/24 11/07/24 23:59 23:59 23:59 23:59 Intake Total 3910 581.7 2270.0 Output Total 900 1350 500 Balance 3910 -318.3 920.0 -500 Meds/Results Medications: Active Medications Generic Name Dose Route Start Last Admin Trade Name Freq PRN Reason Stop Dose Admin Acetaminophen 650 mg 11/04/24 23:33 11/07/24 06:28 Acetaminophen 325 Mg Tablet PO 650 mg Q4H PRN Administration Mild Pain (1-3) or Fever Amlodipine Besylate 5 mg 11/07/24 21:00 Amlodipine Besylate 5 Mg Tablet PO HS MICHAEL Chlorthalidone 12.5 mg 11/04/24 12:40 11/06/24 09:20 Chlorthalidone 12.5 Mg Tab PO 12.5 mg DAILY MICHAEL Administration Sodium Chloride 1,000 mls @ 50 mls/hr 11/05/24 19:00 11/06/24 16:10 Normal Saline Iv IV CONT 50 mls/hr .Q20H MICHAEL Administration Immune Globulin 40 gm/ Immune 450 mls @ 34 mls/hr 11/06/24 18:00 11/06/24 22:24 Globulin 5 gm/ N/A IVPB 11/11/24 07:15 Infused DAILY@1800 MICHAEL Infusion Ondansetron HCl 4 mg 11/05/24 10:51 11/05/24 11:43 Ondansetron Inj 4 Mg/2 Ml Vial IV PUSH 4 mg Q6H PRN Administration Nausea And Vomiting Prednisone 60 mg 11/05/24 08:00 11/06/24 09:21 Prednisone 20 Mg Tablet PO 60 mg DAILY@08 MICHAEL Administration Telmisartan 60 mg 11/04/24 12:40 11/06/24 09:20 Telmisartan 20 Mg Tablet PO 60 mg DAILY MICHAEL Administration Radiology Results: ITS Impressions Head CT 11/04/24 05:29 Impression: No significant abnormality seen. Brain MRI 11/05/24 08:43 IMPRESSION: 1. Normal brain. No acute intracranial process. Labs Labs: Laboratory Results - last 24 hr 11/06/24 11/06/24 11/07/24 13:46 15:01 04:23 WBC 8.8 RBC 5.55 Hgb 17.7 Hct 51.7 MCV 93.2 MCH 31.9 MCHC 34.2 RDW 12.7 Plt Count 124 L MPV 9.3 Immature Gran % (Auto) 1.1 H Neut % (Auto) 63.2 Lymph % (Auto) 22.8 [place] % (Auto) 12.0 H Eos % (Auto) 0.7 Baso % (Auto) 0.2 Lymph # (Auto) 2.01 [place] # (Auto) 1.1 H Eos # (Auto) 0.1 Baso # (Auto) 0.0 Abs Immat Gran (auto) 0.10 H Absolute Neuts (auto) 5.6 Absolute Nucleated RBC 0.000 Nucleated RBC % 0.0 PT 13.7 INR 1.0 Sodium 137 Potassium 3.9 Chloride 103 Carbon Dioxide 25 Anion Gap 9 BUN 25 H Creatinine 0.94 Estim Creat Clear Calc 105 Estimated GFR > 60 Glucose 97 Calcium 8.6 Magnesium 2.3 Total Bilirubin 0.9 AST 45 ALT 47 Alkaline Phosphatase 47 Total Protein 8.0 Albumin 4.3 CSF Source Csf CSF Appearance Clear CSF Color Colorless CSF RBC 8 H CSF Tot Nucleated Cells 1 CSF Neutrophils 3 CSF Lymphocytes 54 CSF Monocytes 43 CSF Glucose 66 CSF Total Protein 267 H Quality VTE Prophylaxis VTE prophylaxis: mechanical ordered
[2024-11-07] MEDS: predniSONE 20 MG TABLET 60 MG PO (08:54)
[2024-11-07] MEDS: TELMISARTAN 20 MG TABLET 60 MG PO (08:54)
[2024-11-07] MEDS: CHLORTHALIDONE 12.5 MG TAB PO (08:54)
[2024-11-07 09:06] LABS: Creatine Kinase 313 U/L (55-170)
--- NOTE | 2024-11-07 16:50 | P.PNNEUR_ITS ---
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 Plan Will continue with the IVIG and physical therapy. Patient is fairly positive and hopeful that this will help him. I explained to him that even after the completion of therapy it may take some time before he starts to feel better. It appears that the overall incidence of GBS after Prevnar is extremely low hence from diagnostic point of view it is still raises possibility of idiopathic presentation of GBS however possibility of CIDP presenting initially need be borne in mind. EMG nerve can study of the lower limbs can be performed as an outpatient. Subjective Date/time seen: 11/07/24 16:50 Interval history: [age] with the weakness in upper and lower limbs and difficulty with ambulation was seen for follow-up. His a spinal tap was performed yesterday and his serum protein was 267 however number of cells were 1 nucleated cell. There were 8 2 RBC. After discussion of the findings with the hospitalist in I have suggested to start him on IVIG at a rate of 0.4 g per kilos body weight for 5 days. He should continue to work with physical therapy. Patient denies any new symptoms. Review of Systems Review of Systems: All systems reviewed & are unremarkable except as noted in HPI and below Exam Narrative: Fully conscious alert oriented to self time place and person. left intranuclear facial weakness was noted. Motor system he still has mild weakness of her proximal muscles in the upper limbs and to some extent in the lower limbs . His hand public safety officer on the right side was decreased. His deep tendon reflexes are decreased in the knees and ankles. Objective Data Vital Signs Vital Signs: Vital Signs - 24 hr 11/06/24 18:40 11/06/24 20:00 11/06/24 20:01 Temperature 97.8 F 98.5 F Pulse Rate 86 98 Respiratory Rate 16 18 Blood Pressure 146/81 H 170/94 H Pulse Oximetry 96 96 96 Oxygen Delivery Room Air 11/06/24 21:41 11/06/24 23:19 11/07/24 00:03 Temperature Pulse Rate 83 85 Respiratory Rate Blood Pressure Pulse Oximetry 96 Oxygen Delivery Room Air 11/07/24 00:40 11/07/24 04:01 11/07/24 04:57 Temperature 98.4 F 98.7 F Pulse Rate 81 94 82 Respiratory Rate 16 16 Blood Pressure 150/77 H 146/83 H Pulse Oximetry 99 98 Oxygen Delivery 11/07/24 08:00 11/07/24 08:00 11/07/24 08:00 Temperature 98.3 F Pulse Rate 85 95 Respiratory Rate 16 Blood Pressure 159/88 H Pulse Oximetry 99 Oxygen Delivery Room Air 11/07/24 12:00 11/07/24 12:00 Temperature 97.8 F Pulse Rate 83 98 Respiratory Rate 16 Blood Pressure 154/87 H Pulse Oximetry 97 Oxygen Delivery Intake/Output Intake/Output: Intake & Output 11/04/24 11/05/24 11/06/24 11/07/24 23:59 23:59 23:59 23:59 Intake Total 3910 581.7 2270.0 480 Output Total 900 1350 500 Balance 3910 -318.3 920.0 -20 Meds/Results Medications: Active Medications Generic Name Dose Route Start Last Admin Trade Name Freq PRN Reason Stop Dose Admin Acetaminophen 650 mg 11/04/24 23:33 11/07/24 06:28 Acetaminophen 325 Mg Tablet PO 650 mg Q4H PRN Administration Mild Pain (1-3) or Fever Amlodipine Besylate 5 mg 11/07/24 21:00 Amlodipine Besylate 5 Mg Tablet PO HS [facility] Chlorthalidone 12.5 mg 11/04/24 12:40 11/07/24 08:54 Chlorthalidone 12.5 Mg Tab PO 12.5 mg DAILY MICHAEL Administration Immune Globulin 40 gm/ Immune 450 mls @ 34 mls/hr 11/06/24 18:00 11/06/24 22:24 Globulin 5 gm/ N/A IVPB 11/11/24 07:15 Infused DAILY@1800 MICHAEL Infusion Ondansetron HCl 4 mg 11/05/24 10:51 11/05/24 11:43 Ondansetron Inj 4 Mg/2 Ml Vial IV PUSH 4 mg Q6H PRN Administration Nausea And Vomiting Prednisone 60 mg 11/05/24 08:00 11/07/24 08:54 Prednisone 20 Mg Tablet PO 60 mg DAILY@08 MICHAEL Administration Telmisartan 60 mg 11/04/24 12:40 11/07/24 08:54 Telmisartan 20 Mg Tablet PO 60 mg DAILY MICHAEL Administration Radiology Results: ITS Impressions Head CT 11/04/24 05:29 Impression: No significant abnormality seen. Brain MRI 11/05/24 08:43 IMPRESSION: 1. Normal brain. No acute intracranial process. Labs Labs: Laboratory Results - last 24 hr 11/07/24 04:23 WBC 8.8 RBC 5.55 Hgb 17.7 Hct 51.7 MCV 93.2 MCH 31.9 MCHC 34.2 RDW 12.7 Plt Count 124 L MPV 9.3 Immature Gran % (Auto) 1.1 H Neut % (Auto) 63.2 Lymph % (Auto) 22.8 [place] % (Auto) 12.0 H Eos % (Auto) 0.7 Baso % (Auto) 0.2 Lymph # (Auto) 2.01 [place] # (Auto) 1.1 H Eos # (Auto) 0.1 Baso # (Auto) 0.0 Abs Immat Gran (auto) 0.10 H Absolute Neuts (auto) 5.6 Absolute Nucleated RBC 0.000 Nucleated RBC % 0.0 Sodium 137 Potassium 3.9 Chloride 103 Carbon Dioxide 25 Anion Gap 9 BUN 25 H Creatinine 0.94 Estim Creat Clear Calc 105 Estimated GFR > 60 Glucose 97 Calcium 8.6 Magnesium 2.3 Total Bilirubin 0.9 AST 45 ALT 47 Alkaline Phosphatase 47 Total Creatine Kinase 313 H Total Protein 8.0 Albumin 4.3
[2024-11-07] MEDS: IMMUNE GLOBULIN IVPB (17:44)
[2024-11-07] MEDS: PREMIXIV IVPB (17:44)
[2024-11-07] MEDS: amLODIPine BESYLATE 5 MG TABLET PO (21:08)
[2024-11-08] VITALS (9 sets, daily range): BP systolic 145–155; BP diastolic 84–95; PULSE 71–103; RESP 18–20; TEMP 36.6–37.2; O2SAT 96–98
[2024-11-08 05:21] LABS: Basophils Percent Auto 0.3 % (0.2-1.2); Eosinophils Absolute Auto 0.1 K/mm3 (0-0.3); Eosinophils Percent Auto 0.8 % (0-4.4); Hematocrit 51.1 % (42.0-52.0); Hemoglobin 17.9 g/dL (14.0-18.0); Immature Granulocyte Absolute 0.06 K/mm3 (0.00-0.031); Immature Granulocyte Percent A 0.9 % (0-0.5); Lymphocytes Absolute Auto 2.02 K/mm3 (0.9-3.2); Lymphocytes Percent Auto 30.9 % (18.3-44.2); Mean Corpuscular Hemoglobin 31.8 pg (26-34); Mean Corpuscular Volume 90.8 fl (80-100); Mean Platelet Volume 9.4 fl (7.4-10.4); Monocytes Absolute Auto 0.9 K/mm3 (0.1-0.6); Monocytes Percent Auto 14.1 % (2.6-8.5); Neutrophils Absolute Auto 3.5 K/mm3 (1.3-6.7); Platelet Count Result 120 k/mm3 (150-375); Red Blood Count 5.63 M/mm3 (4.6-6.20); Red Cell Distribution Width 12.7 % (11.5-14.5); White Blood Count 6.5 K/mm3 (4.5-10.0)
[2024-11-08 05:38] LABS: Alanine Aminotransferase 51 U/L (6-50); Albumin Level 4.3 g/dL (3.5-5.1); Alkaline Phosphatase 45 U/L (38-126); Anion Gap 7 mmol/L (4-12); Aspartate Amino Transferase 53 U/L (17-59); Bilirubin,Total 0.8 mg/dL (0.2-1.3); Blood Urea Nitrogen 26 mg/dL (9-20); Calcium 8.8 mg/dL (8.4-10.2); Carbon Dioxide 27 mmol/L (22-30); Chloride 101 mmol/L (98-107); Estimated CRCL calculation 108 ml/min; Estimated Glomerular Filt Rate > 60; Glucose 97 mg/dL (65-110); Magnesium 2.3 mg/dL (1.6-2.3); Potassium 3.8 mmol/L (3.4-5.0); Sodium 135 mmol/L (137-145)
[2024-11-08] MEDS: predniSONE 20 MG TABLET 60 MG PO (08:14)
[2024-11-08] MEDS: CHLORTHALIDONE 12.5 MG TAB PO (08:14)
[2024-11-08] MEDS: TELMISARTAN 20 MG TABLET 60 MG PO (08:14)
--- NOTE | 2024-11-08 08:24 | P.PNIM_ITS ---
Progress Note: A&P Assessment and Plan (1) Rhabdomyolysis: Code(s): M62.82 - Rhabdomyolysis Status: Acute (2) Left-sided Viveros's palsy: Code(s): G51.0 - Viveros's palsy Status: Acute Plan 49-year-old male with PMH/o htn, hld admitted for evaluation for elevated CPK increased generalized muscle weakness. Patient did have a change in the manufac ture of his atorvastatin few weeks ago. Patient noticed he was having increased muscle weakness approximately 1 week ago. He also received Prevnar vaccination 10/12/2024 in his physician's office. noticed some left-sided facial droop. Patient denies any other focal numbness or weakness but does have generalized muscle weakness that he notices while walking. Patient denies any chest pain or shortness of breath. Patient was started on prednisone and valacyclovir in emergency department for suspected Viveros's palsy. We will continue them unless directed otherwise per neurology. Head CT was negative for acute intracranial abnormality. Patient was afebrile with no leukocytosis hemoglobin of 18.9. CMP is normal, liver enzyme elevated. Patient does have a elevated total creatinine kinase of 1000 and this was increased compared to his measurement of 800 that was collected yesterday as outpatient. Will order 1 l, LR. Patient's TSH is mildly elevated at 4.7. TSH was 2.17 per the previous records. UA was negative. MRI ordered to evaluate for the suspected Viveros's palsy and generalized weakness his bilateral lower extremities. -will check hgA1C 11/05 -will order DIANA to rule out autoimmune disorder no fever, no stiffness to neck, negative Brudzinski sign - will add BC -continue to trend daily labs, VS - continue gentle hydration CK is trending down 11/06 LP today BC prelim negat. no fevers BP more stable repeat CK-ordered 0.9 ns at 50 11/07 WBC improved today CK trending down- 313 immunoglobulin x 5 bags ordered per neurology continue to work with PT/OT 11/08 Continue with IVIG at a rate of 0.4 g per kilos body weight for total 5 days wbc stable continue to work with pt/ot no fevers neurology is following Pt is full code. Time Spent With Patient Time with patient: 25 - 35 minutes Subjective Date/time seen: 11/08/24 08:24 Interval history: 49-year-old male with PMH/of htn, hld admitted for evaluation for elevated CPK increased generalized muscle weakness. Patient did have a change in the manufacture of his atorvastatin few weeks ago. Patient noticed he was having increased muscle weakness approximately 1 week ago. He also received Prevnar vaccination 10/12/2024 in his physician's office. He had some labs done few weeks ago; ESR, CRP-normal , wbc normal. Hg 19.7, hct 55.8. 11/05- pt felt somewhat dizzy this am and when went to MRI, rapid was called as pt was drowsy, diaphoretic and dizzy. BP was 90/58. EKG was done, bs checked. Fluid bolus given. Pt had been observed with continuous pulse ox and frequent VS. at bedside, updates given. Plan for LP in am. he is feeling better now, alert, and not dizzy. Still achy and muscle pain. 11/06- LP today. Pt is feeling a it better, still weak, but was able to walk with walker and PT. BC collected yesterday- so far neg. no fevers. 11/07- WBC 8.8, liver enzymes are back to normal. WBC normal, ck is down to 313. Working with PT/OT. Had LP yesterday, tolerated well. 11/08- Pt is doing well, working with PT/OT. Continue with IVIG at a rate of 0.4 g per kilos body weight for 5 days. Appetite is fair. weakness slowly improving. Review of Systems Review of Systems: All systems reviewed & are unremarkable except as noted in HPI and below Musculoskeletal: Musculoskeletal: Reports myalgias Exam Const: General: comfortable Resp: Effort & Inspection: normal respiratory effort Auscultation: clear to auscultation bilaterally Cardio: Rate: regular rate Rhythm: regular rhythm GI: GI Palp: Yes Soft to palpation Auscultation: normal bowel sounds Skin: General skin exam: normal color Neuro: Motor exam (neuro): 5/5 motor strength present throughout Psych: Affect: normal affect Objective Data Vital Signs Vital Signs: Vital Signs - 24 hr 11/07/24 12:00 11/07/24 12:00 11/07/24 16:00 Temperature 97.8 F 98.4 F Pulse Rate 83 98 102 H Respiratory Rate 16 16 Blood Pressure 154/87 H 163/81 H Pulse Oximetry 97 96 Oxygen Delivery Oxygen Flow Rate 11/07/24 16:00 11/07/24 20:00 11/07/24 20:01 Temperature 97.8 F Pulse Rate 90 100 Respiratory Rate 20 Blood Pressure 173/89 H Pulse Oximetry 97 97 Oxygen Delivery Room Air Oxygen Flow Rate 11/07/24 20:01 11/07/24 20:44 11/07/24 22:38 Temperature Pulse Rate 105 H Respiratory Rate Blood Pressure Pulse Oximetry 97 97 Oxygen Delivery Room Air Nasal Cannula Oxygen Flow Rate 2 11/07/24 23:13 11/08/24 00:03 11/08/24 04:00 Temperature 97.9 F 98 F Pulse Rate 87 72 77 Respiratory Rate 20 20 Blood Pressure 170/86 H 155/90 H Pulse Oximetry 100 98 Oxygen Delivery Oxygen Flow Rate 11/08/24 04:01 11/08/24 08:09 Temperature Pulse Rate 71 Respiratory Rate Blood Pressure Pulse Oximetry 98 Oxygen Delivery Room Air Oxygen Flow Rate Intake/Output Intake/Output: Intake & Output 11/05/24 11/06/24 11/07/24 11/08/24 23:59 23:59 23:59 23:59 Intake Total 581.7 2270.0 763.1 400 Output Total 900 1350 700 700 Balance -318.3 920.0 63.1 -300 Meds/Results Medications: Active Medications Generic Name Dose Route Start Last Admin Trade Name Freq PRN Reason Stop Dose Admin Acetaminophen 650 mg 11/04/24 23:33 11/07/24 06:28 Acetaminophen 325 Mg Tablet PO 650 mg Q4H PRN Administration Mild Pain (1-3) or Fever Amlodipine Besylate 5 mg 11/07/24 21:00 11/07/24 21:08 Amlodipine Besylate 5 Mg Tablet PO 5 mg HS MICHAEL Administration Chlorthalidone 12.5 mg 11/04/24 12:40 11/08/24 08:14 Chlorthalidone 12.5 Mg Tab PO 12.5 mg DAILY MICHAEL Administration Immune Globulin 40 gm/ Immune 450 mls @ 34 mls/hr 11/06/24 18:00 11/07/24 19:00 Globulin 5 gm/ N/A IVPB 11/11/24 07:15 136 mls/hr DAILY@1800 MICHAEL Infusion Ondansetron HCl 4 mg 11/05/24 10:51 11/05/24 11:43 Ondansetron Inj 4 Mg/2 Ml Vial IV PUSH 4 mg Q6H PRN Administration Nausea And Vomiting Prednisone 60 mg 11/05/24 08:00 11/08/24 08:14 Prednisone 20 Mg Tablet PO 60 mg DAILY@08 MICHAEL Administration Telmisartan 60 mg 11/04/24 12:40 11/08/24 08:14 Telmisartan 20 Mg Tablet PO 60 mg DAILY MICHAEL Administration Radiology Results: ITS Impressions Head CT 11/04/24 05:29 Impression: No significant abnormality seen. Brain MRI 11/05/24 08:43 IMPRESSION: 1. Normal brain. No acute intracranial process. Labs Labs: Laboratory Results - last 24 hr 11/07/24 11/08/24 04:23 05:15 WBC 6.5 RBC 5.63 Hgb 17.9 Hct 51.1 MCV 90.8 MCH 31.8 MCHC 35.0 RDW 12.7 Plt Count 120 L MPV 9.4 Immature Gran % (Auto) 0.9 H Neut % (Auto) 53.0 Lymph % (Auto) 30.9 [place] % (Auto) 14.1 H Eos % (Auto) 0.8 Baso % (Auto) 0.3 Lymph # (Auto) 2.02 [place] # (Auto) 0.9 H Eos # (Auto) 0.1 Baso # (Auto) 0.0 Abs Immat Gran (auto) 0.06 H Absolute Neuts (auto) 3.5 Absolute Nucleated RBC 0.000 Nucleated RBC % 0.0 Sodium 135 L Potassium 3.8 Chloride 101 Carbon Dioxide 27 Anion Gap 7 BUN 26 H Creatinine 0.91 Estim Creat Clear Calc 108 Estimated GFR > 60 Glucose 97 Calcium 8.8 Magnesium 2.3 Total Bilirubin 0.8 AST 53 ALT 51 H Alkaline Phosphatase 45 Total Creatine Kinase 313 H Total Protein 9.0 H Albumin 4.3 Quality VTE Prophylaxis VTE prophylaxis: mechanical ordered
--- NOTE | 2024-11-08 15:34 | WPDNEUROPN ---
Progress Note: A&P Assessment and Plan (1) GBS (Guillain [place] syndrome): Code(s): G61.0 - Guillain-[place] syndrome Status: Acute (2) Left-sided Viveros's palsy: Code(s): G51.0 - Viveros's palsy Status: Acute Subjective Date/time seen: 11/08/24 15:34 Interval history: The patient is 49-year-old with GBS continues to have weakness in upper lower limbs. He is using a walker to get around. He has difficulty get raising his arm above his head. He is tolerating the treatment with IVIG well so far. His also work with physical therapy. Family members are present at the time of this evaluation. Review of Systems Review of Systems: All systems reviewed & are unremarkable except as noted in HPI and below Exam Narrative: Fully conscious alert oriented to self time place and person. cranial nerves show persistent left intranuclear facial weakness. No additional findings were noted. the patient is unable to raise his arms above his head . He has weakness of the proximal muscles greater than hands. He also had difficulty getting up from the chair however this strength in the lower limbs is relatively better compared to proximal muscles of upper limbs Objective Data Vital Signs Vital Signs: Vital Signs - 24 hr 11/07/24 16:00 11/07/24 16:00 11/07/24 20:00 Temperature 98.4 F 97.8 F Pulse Rate 102 H 90 100 Respiratory Rate 16 20 Blood Pressure 163/81 H 173/89 H Pulse Oximetry 96 97 Oxygen Delivery Oxygen Flow Rate 11/07/24 20:01 11/07/24 20:01 11/07/24 20:44 Temperature Pulse Rate 105 H Respiratory Rate Blood Pressure Pulse Oximetry 97 97 Oxygen Delivery Room Air Room Air Oxygen Flow Rate 11/07/24 22:38 11/07/24 23:13 11/08/24 00:03 Temperature 97.9 F Pulse Rate 87 72 Respiratory Rate 20 Blood Pressure 170/86 H Pulse Oximetry 97 100 Oxygen Delivery Nasal Cannula Oxygen Flow Rate 2 11/08/24 04:00 11/08/24 04:01 11/08/24 08:00 Temperature 98 F 98.2 F Pulse Rate 77 71 93 Respiratory Rate 20 18 Blood Pressure 155/90 H 145/85 H Pulse Oximetry 98 96 Oxygen Delivery Oxygen Flow Rate 11/08/24 08:00 11/08/24 08:00 11/08/24 08:09 Temperature Pulse Rate 99 Respiratory Rate Blood Pressure Pulse Oximetry 98 Oxygen Delivery Room Air Room Air Oxygen Flow Rate 11/08/24 12:00 11/08/24 12:00 Temperature 98.6 F Pulse Rate 100 99 Respiratory Rate 18 Blood Pressure 152/91 H Pulse Oximetry 96 Oxygen Delivery Oxygen Flow Rate Intake/Output Intake/Output: Intake & Output 11/05/24 11/06/24 11/07/24 11/08/24 23:59 23:59 23:59 23:59 Intake Total 581.7 2270.0 763.1 880 Output Total 900 1350 700 700 Balance -318.3 920.0 63.1 180 Meds/Results Medications: Active Medications Generic Name Dose Route Start Last Admin Trade Name Freq PRN Reason Stop Dose Admin Acetaminophen 650 mg 11/04/24 23:33 11/07/24 06:28 Acetaminophen 325 Mg Tablet PO 650 mg Q4H PRN Administration Mild Pain (1-3) or Fever Amlodipine Besylate 5 mg 11/07/24 21:00 11/07/24 21:08 Amlodipine Besylate 5 Mg Tablet PO 5 mg HS MICHAEL Administration Chlorthalidone 12.5 mg 11/04/24 12:40 11/08/24 08:14 Chlorthalidone 12.5 Mg Tab PO 12.5 mg DAILY MICHAEL Administration Immune Globulin 40 gm/ Immune 450 mls @ 34 mls/hr 11/06/24 18:00 11/07/24 19:00 Globulin 5 gm/ N/A IVPB 11/11/24 07:15 136 mls/hr DAILY@1800 MICHAEL Infusion Ondansetron HCl 4 mg 11/05/24 10:51 11/05/24 11:43 Ondansetron Inj 4 Mg/2 Ml Vial IV PUSH 4 mg Q6H PRN Administration Nausea And Vomiting Prednisone 60 mg 11/05/24 08:00 11/08/24 08:14 Prednisone 20 Mg Tablet PO 60 mg DAILY@08 MICHAEL Administration Telmisartan 60 mg 11/04/24 12:40 11/08/24 08:14 Telmisartan 20 Mg Tablet PO 60 mg DAILY MICHAEL Administration Radiology Results: ITS Impressions Head CT 11/04/24 05:29 Impression: No significant abnormality seen. Brain MRI 11/05/24 08:43 IMPRESSION: 1. Normal brain. No acute intracranial process. Labs Labs: Laboratory Results - last 24 hr 11/08/24 05:15 WBC 6.5 RBC 5.63 Hgb 17.9 Hct 51.1 MCV 90.8 MCH 31.8 MCHC 35.0 RDW 12.7 Plt Count 120 L MPV 9.4 Immature Gran % (Auto) 0.9 H Neut % (Auto) 53.0 Lymph % (Auto) 30.9 [place] % (Auto) 14.1 H Eos % (Auto) 0.8 Baso % (Auto) 0.3 Lymph # (Auto) 2.02 [place] # (Auto) 0.9 H Eos # (Auto) 0.1 Baso # (Auto) 0.0 Abs Immat Gran (auto) 0.06 H Absolute Neuts (auto) 3.5 Absolute Nucleated RBC 0.000 Nucleated RBC % 0.0 Sodium 135 L Potassium 3.8 Chloride 101 Carbon Dioxide 27 Anion Gap 7 BUN 26 H Creatinine 0.91 Estim Creat Clear Calc 108 Estimated GFR > 60 Glucose 97 Calcium 8.8 Magnesium 2.3 Total Bilirubin 0.8 AST 53 ALT 51 H Alkaline Phosphatase 45 Total Protein 9.0 H Albumin 4.3
[2024-11-08] MEDS: PREMIXIV IVPB (17:21)
[2024-11-08] MEDS: IMMUNE GLOBULIN IVPB (17:21)
[2024-11-08] MEDS: amLODIPine BESYLATE 5 MG TABLET PO (20:16)
[2024-11-09] VITALS (12 sets, daily range): BP systolic 136–166; BP diastolic 71–99; PULSE 77–105; RESP 12–20; TEMP 36.6–37.3; O2SAT 96–100
[2024-11-09 05:38] LABS: Basophils Percent Auto 0.3 % (0.2-1.2); Eosinophils Absolute Auto 0.1 K/mm3 (0-0.3); Eosinophils Percent Auto 1.1 % (0-4.4); Hematocrit 51.2 % (42.0-52.0); Hemoglobin 17.9 g/dL (14.0-18.0); Immature Granulocyte Absolute 0.04 K/mm3 (0.00-0.031); Immature Granulocyte Percent A 0.6 % (0-0.5); Immature Platelet Fraction Pct 1.6 % (0.9-11.2); Lymphocytes Absolute Auto 2.03 K/mm3 (0.9-3.2); Lymphocytes Percent Auto 31.3 % (18.3-44.2); Mean Corpuscular Hemoglobin 31.6 pg (26-34); Mean Corpuscular Volume 90.3 fl (80-100); Mean Platelet Volume 9.3 fl (7.4-10.4); Monocytes Percent Auto 15.6 % (2.6-8.5); Neutrophils Absolute Auto 3.3 K/mm3 (1.3-6.7); Neutrophils Percent Auto 51.1 % (45.5-73.1); Platelet Count Result 135 k/mm3 (150-375); Red Blood Count 5.67 M/mm3 (4.6-6.20); Red Cell Distribution Width 12.4 % (11.5-14.5); White Blood Count 6.5 K/mm3 (4.5-10.0)
[2024-11-09 05:50] LABS: Alanine Aminotransferase 61 U/L (6-50); Albumin Level 4.2 g/dL (3.5-5.1); Alkaline Phosphatase 48 U/L (38-126); Anion Gap 7 mmol/L (4-12); Aspartate Amino Transferase 64 U/L (17-59); Blood Urea Nitrogen 31 mg/dL (9-20); Calcium 8.6 mg/dL (8.4-10.2); Carbon Dioxide 27 mmol/L (22-30); Chloride 101 mmol/L (98-107); Estimated CRCL calculation 90 ml/min; Estimated Glomerular Filt Rate > 60; Glucose 95 mg/dL (65-110); Magnesium 2.4 mg/dL (1.6-2.3); Potassium 3.7 mmol/L (3.4-5.0); Sodium 135 mmol/L (137-145)
--- NOTE | 2024-11-09 08:11 | PM.IMPN ---
Progress Note: A&P Assessment and Plan (1) Rhabdomyolysis: Code(s): M62.82 - Rhabdomyolysis Status: Acute (2) Left-sided Viveros's palsy: Code(s): G51.0 - Viveros's palsy Status: Acute (3) GBS (Guillain [place] syndrome): Code(s): G61.0 - Guillain-[place] syndrome Status: Acute Plan 49-year-old male with PMH/o htn, hld admitted for evaluation for elevated CPK increased generalized muscle weakness. Patient did have a change in the manufacture of his atorvastatin few weeks ago. Patient noticed he was having increased muscle weakness approximately 1 week ago. He also received Prevnar vaccination 10/12/2024 in his physician's office. noticed some left-sided facial droop. Patient denies any other focal numbness or weakness but does have generalized muscle weakness that he notices while walking. Patient denies any chest pain or shortness of breath. Patient was started on prednisone and valacyclovir in emergency department for suspected Viveros's palsy. We will continue them unless directed otherwise per neurology. Head CT was negative for acute intracranial abnormality. Patient was afebrile with no leukocytosis hemoglobin of 18.9. CMP is normal, liver enzyme elevated. Patient does have a elevated total creatinine kinase of 1000 and this was increased compared to his measurement of 800 that was collected yesterday as outpatient. Will order 1 l, LR. Patient's TSH is mildly elevated at 4.7. TSH was 2.17 per the previous records. UA was negative. MRI ordered to evaluate for the suspected Viveros's palsy and generalized weakness his bilateral lower extremities. -will check hgA1C 11/05 -will order DIANA to rule out autoimmune disorder no fever, no stiffness to neck, negative Brudzinski sign - will add BC -continue to trend daily labs, VS - continue gentle hydration CK is trending down 11/06 LP today BC prelim negat. no fevers BP more stable repeat CK-ordered 0.9 ns at 50 11/07 WBC improved today CK trending down- 313 immunoglobulin x 5 bags ordered per neurology continue to work with PT/OT 11/08 Continue with IVIG at a rate of 0.4 g per kilos body weight for total 5 days wbc stable continue to work with pt/ot no fevers neurology is following 11/09 - fluctuation in liver enzymes - still weakness to upper/lower limbs, but able to slowly move better - continue to work with PT/OT - CSF gram stain, culture- still penidng Blood cultures 11/05- prelim- negative continue IVIG neurology on board Pt is full code. Time Spent With Patient Time with patient: 25 - 35 minutes Subjective Date/time seen: 11/09/24 08:11 Interval history: 49-year-old with GBS continues to have weakness in upper lower limbs. He is getting stronger but still having issues raising arms above his head. He is working with PT/OT. afebrile. Review of Systems Review of Systems: ROM is better, muscle strength is improving. All systems reviewed & are unremarkable except as noted in HPI and below Musculoskeletal: Musculoskeletal: Reports myalgias Exam Const: General: comfortable Resp: Effort & Inspection: normal respiratory effort Auscultation: clear to auscultation bilaterally Cardio: Rate: regular rate and tachycardic Rhythm: regular rhythm GI: Auscultation: normal bowel sounds Skin: General skin exam: normal color Neuro: Motor exam (neuro): 5/5 motor strength present throughout Psych: Affect: normal affect Objective Data Vital Signs Vital Signs: Vital Signs - 24 hr 11/08/24 12:00 11/08/24 12:00 11/08/24 16:00 Temperature 98.6 F Pulse Rate 100 99 103 H Respiratory Rate 18 Blood Pressure 152/91 H Pulse Oximetry 96 Oxygen Delivery Fraction of Inspired Oxygen 11/08/24 16:00 11/08/24 19:30 11/08/24 20:00 Temperature 98.7 F 99.0 F Pulse Rate 98 102 H 91 Respiratory Rate 18 20 20 Blood Pressure 148/95 H 149/84 H Pulse Oximetry 96 97 97 Oxygen Delivery Room Air Fraction of Inspired Oxygen 21 11/08/24 20:00 11/08/24 20:20 11/09/24 00:00 Temperature 98.8 F Pulse Rate 92 80 Respiratory Rate 20 Blood Pressure 136/82 Pulse Oximetry 98 Oxygen Delivery Room Air Fraction of Inspired Oxygen 11/09/24 00:00 11/09/24 04:00 11/09/24 04:01 Temperature 98.5 F Pulse Rate 99 82 85 Respiratory Rate 20 Blood Pressure 142/87 H Pulse Oximetry 99 Oxygen Delivery Fraction of Inspired Oxygen Intake/Output Intake/Output: Intake & Output 11/06/24 11/07/24 11/08/24 11/09/24 23:59 23:59 23:59 23:59 Intake Total 2270.0 1170.0 1147.8 400 Output Total 1350 700 700 200 Balance 920.0 470.0 447.8 200 Meds/Results Medications: Active Medications Generic Name Dose Route Start Last Admin Trade Name Freq PRN Reason Stop Dose Admin Acetaminophen 650 mg 11/04/24 23:33 11/07/24 06:28 Acetaminophen 325 Mg Tablet PO 650 mg Q4H PRN Administration Mild Pain (1-3) or Fever Amlodipine Besylate 5 mg 11/07/24 21:00 11/08/24 20:16 Amlodipine Besylate 5 Mg Tablet PO 5 mg HS MICHAEL Administration Chlorthalidone 12.5 mg 11/04/24 12:40 11/08/24 08:14 Chlorthalidone 12.5 Mg Tab PO 12.5 mg DAILY MICHAEL Administration Immune Globulin 40 gm/ Immune 450 mls @ 34 mls/hr 11/06/24 18:00 11/08/24 17:55 Globulin 5 gm/ N/A IVPB 11/11/24 07:15 136 mls/hr DAILY@1800 MICHAEL Infusion Ondansetron HCl 4 mg 11/05/24 10:51 11/05/24 11:43 Ondansetron Inj 4 Mg/2 Ml Vial IV PUSH 4 mg Q6H PRN Administration Nausea And Vomiting Prednisone 60 mg 11/05/24 08:00 11/08/24 08:14 Prednisone 20 Mg Tablet PO 60 mg DAILY@08 MICHAEL Administration Telmisartan 60 mg 11/04/24 12:40 11/08/24 08:14 Telmisartan 20 Mg Tablet PO 60 mg DAILY MICHAEL Administration Radiology Results: ITS Impressions Head CT 11/04/24 05:29 Impression: No significant abnormality seen. Brain MRI 11/05/24 08:43 IMPRESSION: 1. Normal brain. No acute intracranial process. Labs Labs: Laboratory Results - last 24 hr 11/09/24 05:26 WBC 6.5 RBC 5.67 Hgb 17.9 Hct 51.2 MCV 90.3 MCH 31.6 MCHC 35.0 RDW 12.4 Plt Count 135 L MPV 9.3 Immature Gran % (Auto) 0.6 H Neut % (Auto) 51.1 Lymph % (Auto) 31.3 [place] % (Auto) 15.6 H Eos % (Auto) 1.1 Baso % (Auto) 0.3 Lymph # (Auto) 2.03 [facility] # (Auto) 1.0 H Eos # (Auto) 0.1 Baso # (Auto) 0.0 Abs Immat Gran (auto) 0.04 H Absolute Neuts (auto) 3.3 Absolute Nucleated RBC 0.000 Nucleated RBC % 0.0 % Immature Plt Fraction 1.6 Sodium 135 L Potassium 3.7 Chloride 101 Carbon Dioxide 27 Anion Gap 7 BUN 31 H Creatinine 1.10 Estim Creat Clear Calc 90 Estimated GFR > 60 Glucose 95 Calcium 8.6 Magnesium 2.4 H Total Bilirubin 1.0 AST 64 H ALT 61 H Alkaline Phosphatase 48 Total Protein 9.0 H Albumin 4.2 Quality VTE Prophylaxis VTE prophylaxis: mechanical ordered
[2024-11-09] MEDS: TELMISARTAN 20 MG TABLET 60 MG PO (10:06)
[2024-11-09] MEDS: CHLORTHALIDONE 12.5 MG TAB PO (10:06)
[2024-11-09] MEDS: predniSONE 20 MG TABLET 60 MG PO (10:06)
[2024-11-09 14:04] LABS: Erythropoietin (EPO) 18.3 mIU/mL (2.6-18.5)
[2024-11-09] MEDS: IBUPROFEN 200 MG TABLET PO (17:39)
[2024-11-09] MEDS: PREMIXIV IVPB (17:41)
[2024-11-09] MEDS: IMMUNE GLOBULIN IVPB (17:41)
[2024-11-09] MEDS: ACETAMINOPHEN 325 MG TABLET 650 MG PO (17:45)
[2024-11-09] MEDS: amLODIPine BESYLATE 5 MG TABLET PO (20:29)
[2024-11-10] VITALS (10 sets, daily range): BP systolic 109–185; BP diastolic 66–91; PULSE 71–125; RESP 12–98; TEMP 36.4–36.8; O2SAT 91–100
[2024-11-10 06:15] LABS: Basophils Percent Auto 0.3 % (0.2-1.2); Eosinophils Absolute Auto 0.1 K/mm3 (0-0.3); Eosinophils Percent Auto 0.8 % (0-4.4); Hematocrit 50.2 % (42.0-52.0); Hemoglobin 17.6 g/dL (14.0-18.0); Immature Granulocyte Absolute 0.04 K/mm3 (0.00-0.031); Immature Granulocyte Percent A 0.6 % (0-0.5); Immature Platelet Fraction Pct 1.7 % (0.9-11.2); Lymphocytes Absolute Auto 1.82 K/mm3 (0.9-3.2); Lymphocytes Percent Auto 27.5 % (18.3-44.2); Mean Corpuscular HGB Conc 35.1 g/dl (32-36); Mean Corpuscular Hemoglobin 31.6 pg (26-34); Mean Corpuscular Volume 90.1 fl (80-100); Mean Platelet Volume 8.8 fl (7.4-10.4); Neutrophils Absolute Auto 3.7 K/mm3 (1.3-6.7); Neutrophils Percent Auto 55.8 % (45.5-73.1); Platelet Count Result 138 k/mm3 (150-375); Red Blood Count 5.57 M/mm3 (4.6-6.20); Red Cell Distribution Width 12.5 % (11.5-14.5); White Blood Count 6.6 K/mm3 (4.5-10.0)
[2024-11-10 06:28] LABS: Alanine Aminotransferase 58 U/L (6-50); Albumin Level 4.2 g/dL (3.5-5.1); Alkaline Phosphatase 49 U/L (38-126); Anion Gap 8 mmol/L (4-12); Aspartate Amino Transferase 66 U/L (17-59); Bilirubin,Total 1.1 mg/dL (0.2-1.3); Blood Urea Nitrogen 36 mg/dL (9-20); Calcium 8.4 mg/dL (8.4-10.2); Carbon Dioxide 25 mmol/L (22-30); Chloride 101 mmol/L (98-107); Estimated CRCL calculation 100 ml/min; Estimated Glomerular Filt Rate > 60; Glucose 100 mg/dL (65-110); Magnesium 2.4 mg/dL (1.6-2.3); Potassium 3.6 mmol/L (3.4-5.0); Sodium 134 mmol/L (137-145)
--- NOTE | 2024-11-10 07:10 | PM.IMPN ---
Progress Note: A&P Assessment and Plan (1) Rhabdomyolysis: Code(s): M62.82 - Rhabdomyolysis Status: Acute (2) Left-sided Viveros's palsy: Code(s): G51.0 - Viveros's palsy Status: Acute (3) GBS (Guillain Eagan syndrome): Code(s): G61.0 - Guillain-Eagan syndrome Status: Acute Plan Hospital Course: 49-year-old hx htn, hld admitted for evaluation for elevated CPK increased generalized muscle weakness.GBS continues to have weakness in upper lower limbs. He is getting stronger but still having issues raising arms above his head. He is working with PT/OT. afebrile. 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 Patient noticed he was having increased muscle weakness approximately 1 week ago. He also received Prevnar vaccination 10/12/2024 in his physician's office. He had some labs done few weeks prior to admission; ESR, CRP-normal , wbc normal. Hg 19.7, hct 55.8. noticed some left-sided facial droop. Patient denies any other focal numbness or weakness but does have generalized muscle weakness that he notices while walking. Patient denies any chest pain or shortness of breath. Patient was started on prednisone and valacyclovir in emergency department for suspected Viveros's palsy. We will continue them unless directed otherwise per neurology. Head CT was negative for acute intracranial abnormality. Patient was afebrile with no leukocytosis hemoglobin of 18.9. CMP is normal, liver enzyme elevated. Patient does have a elevated total creatinine kinase of 1000 and this was increased compared to his measurement of 800 that was collected yesterday as outpatient. Will order 1 l, LR. Patient's TSH is mildly elevated at 4.7. TSH was 2.17 per the previous records. UA was negative. MRI ordered to evaluate for the suspected Viveros's palsy and generalized weakness his bilateral lower extremities. Neurology consuted for weakness, treating Gullain barre syndrome particularly since he has had a vaccination 10/12/2024 Planning prednisone taper. He can be discharge once IVIG tx is completed with outpt PT/OT and needs to see neurology in 3 weeks after discharge. Guillain Eagan syndrome Weakness no fever, no stiffness to neck, negative Brudzinski sign. LP was done. 5 doses of IVIG 11/06-11/11, 1 more dose Neurology consulted, appreciate recommendations and assistance Continued weakness to upper and lower extremities, improving slowly PT/OT following Labs CK elevated to 1050 11/04, trending down to 313 11/07 DIANA LFT's Normal bili, AST/ALT 66/58, Alk phos 49 11/05 Blood cultures NGTD 11/06 CSF GS no organisms, culture NGTD Pt is full code. Time Spent With Patient Time: 58 minutes Subjective Date/time seen: 11/10/24 07:10 Interval history: VSS, BP above goal, 152-158/85-88. Labs ok 1 more dose of IVIG planned Able to stand with less assistance than before. Unsteady on one foot but can rise from sitting to standing independently. Still has tingling to his bilateral hands and feet Planning discharge to [facility]/SNF vs Home Review of Systems Review of Systems: ROM is better, muscle strength is improving. All systems reviewed & are unremarkable except as noted in HPI and below Musculoskeletal: Musculoskeletal: Reports myalgias Exam Narrative: General - Awake and alert. No acute distress Eyes - PERRLA, EOM intact ENT - No thrush, No erythema Neck - No noticeable or palpable swelling Lymph Nodes - No lymphadenopathy Cardiovascular - RRR no m/r/g, no JVD Lungs: Clear to auscultation, No wheezing, use of accessory muscles, no crackles Skin - Skin warm and dry, no wounds or rashes Abdomen - Normal bowel sounds, abdomen soft and nontender Extremities - No edema, cyanosis or clubbing Musculoskeletal - / strength, normal range of motion, no swollen or erythematous joints. Neurological ? Alert and oriented x 3, CN 2-12 grossly intact. Psych: Normal mood and affect Objective Data Vital Signs Vital Signs: Vital Signs - 24 hr 11/09/24 08:00 11/09/24 08:00 11/09/24 08:00 Temperature 99.1 F Pulse Rate 83 77 Respiratory Rate 16 Blood Pressure 141/91 H Pulse Oximetry 100 Oxygen Delivery Room Air Fraction of Inspired Oxygen 11/09/24 12:00 11/09/24 12:00 11/09/24 16:00 Temperature 98.1 F Pulse Rate 100 98 98 Respiratory Rate 18 16 Blood Pressure 143/99 H 158/91 H Pulse Oximetry 99 99 Oxygen Delivery Fraction of Inspired Oxygen 11/09/24 16:00 11/09/24 18:25 11/09/24 18:29 Temperature 97.8 F Pulse Rate 105 H 96 96 Respiratory Rate 16 16 Blood Pressure 153/93 H 153/93 H Pulse Oximetry 96 96 Oxygen Delivery Fraction of Inspired Oxygen 11/09/24 19:30 11/09/24 19:54 11/09/24 20:20 Temperature 97.8 F 98.0 F Pulse Rate 95 95 85 Respiratory Rate 16 12 20 Blood Pressure 159/95 H 166/71 H Pulse Oximetry 97 98 97 Oxygen Delivery Room Air Fraction of Inspired Oxygen 21 11/09/24 20:20 11/09/24 21:32 11/10/24 00:00 Temperature 97.6 F Pulse Rate 89 85 79 Respiratory Rate 20 12 Blood Pressure 158/88 H Pulse Oximetry 97 96 Oxygen Delivery Room Air Fraction of Inspired Oxygen 11/10/24 00:03 11/10/24 04:00 11/10/24 04:00 Temperature 98.1 F Pulse Rate 82 71 79 Respiratory Rate 16 Blood Pressure 152/85 H Pulse Oximetry 99 Oxygen Delivery Fraction of Inspired Oxygen Intake/Output Intake/Output: Intake & Output 11/07/24 11/08/24 11/09/24 11/10/24 23:59 23:59 23:59 23:59 Intake Total 1170.0 1570.0 3254.5 600 Output Total 700 432 976 9785 Balance 470.0 870.0 3054.5 -600 Meds/Results Medications: Active Medications Generic Name Dose Route Start Last Admin Trade Name Freq PRN Reason Stop Dose Admin Acetaminophen 650 mg 11/04/24 23:33 11/09/24 17:45 Acetaminophen 325 Mg Tablet PO 650 mg Q4H PRN Administration Mild Pain (1-3) or Fever Amlodipine Besylate 5 mg 11/07/24 21:00 11/09/24 20:29 Amlodipine Besylate 5 Mg Tablet PO 5 mg HS MICHAEL Administration Chlorthalidone 12.5 mg 11/04/24 12:40 11/09/24 10:06 Chlorthalidone 12.5 Mg Tab PO 12.5 mg DAILY MICHAEL Administration Immune Globulin 40 gm/ Immune 450 mls @ 34 mls/hr 11/06/24 18:00 11/09/24 19:20 Globulin 5 gm/ N/A IVPB 11/11/24 07:15 150 mls/hr DAILY@1800 MICHAEL Infusion Ondansetron HCl 4 mg 11/05/24 10:51 11/05/24 11:43 Ondansetron Inj 4 Mg/2 Ml Vial IV PUSH 4 mg Q6H PRN Administration Nausea And Vomiting Prednisone 60 mg 11/05/24 08:00 11/09/24 10:06 Prednisone 20 Mg Tablet PO 60 mg DAILY@08 MICHAEL Administration Telmisartan 60 mg 11/04/24 12:40 11/09/24 10:06 Telmisartan 20 Mg Tablet PO 60 mg DAILY MICHAEL Administration Radiology Results: ITS Impressions Head CT 11/04/24 05:29 Impression: No significant abnormality seen. Brain MRI 11/05/24 08:43 IMPRESSION: 1. Normal brain. No acute intracranial process. Lumbar Puncture Fluoroscopy 11/09/24 08:42 IMPRESSION: 1. Successful fluoro-guided lumbar puncture with elevated opening pressure of 25 cm water. Labs Labs: Laboratory Results - last 24 hr 11/05/24 11/10/24 15:07 06:05 WBC 6.6 RBC 5.57 Hgb 17.6 Hct 50.2 MCV 90.1 MCH 31.6 MCHC 35.1 RDW 12.5 Plt Count 138 L MPV 8.8 Immature Gran % (Auto) 0.6 H Neut % (Auto) 55.8 Lymph % (Auto) 27.5 [place] % (Auto) 15.0 H Eos % (Auto) 0.8 Baso % (Auto) 0.3 Lymph # (Auto) 1.82 [place] # (Auto) 1.0 H Eos # (Auto) 0.1 Baso # (Auto) 0.0 Abs Immat Gran (auto) 0.04 H Absolute Neuts (auto) 3.7 Absolute Nucleated RBC 0.000 Nucleated RBC % 0.0 % Immature Plt Fraction 1.7 Sodium 134 L Potassium 3.6 Chloride 101 Carbon Dioxide 25 Anion Gap 8 BUN 36 H Creatinine 0.99 Estim Creat Clear Calc 100 Estimated GFR > 60 Glucose 100 Calcium 8.4 Magnesium 2.4 H Erythropoietin 18.3 Total Bilirubin 1.1 AST 66 H ALT 58 H Alkaline Phosphatase 49 Total Protein 10.0 H Albumin 4.2 Quality VTE Prophylaxis VTE prophylaxis: mechanical ordered Hospitalist MIPS Advance Care Plan I have confirmed that the patient's Advanced Care Plan is present, code status is documented, or surrogate decision maker is listed in patient medical record.: Yes Medication Reconciliation I have utilized all available resources to obtain, update and review the patients current medications (includes all prescriptions, OTC, herbals, cannabis, and nutritional supplements).: Yes
[2024-11-10] MEDS: predniSONE 20 MG TABLET 60 MG PO (10:18)
[2024-11-10] MEDS: TELMISARTAN 20 MG TABLET 60 MG PO (10:18)
[2024-11-10] MEDS: CHLORTHALIDONE 12.5 MG TAB PO (10:18)
[2024-11-10] MEDS: PREMIXIV IVPB (18:21)
[2024-11-10] MEDS: IMMUNE GLOBULIN IVPB (18:21)
[2024-11-10] MEDS: amLODIPine BESYLATE 5 MG TABLET PO (20:20)
[2024-11-11] VITALS: BP 141/77; PULSE 80; RESP 18; TEMP 36.6; O2SAT 97
[2024-11-11 00:03] VITALS: PULSE 76
[2024-11-11 04:00] VITALS: BP 151/83; PULSE 101; PULSE 68; RESP 18; TEMP 36.6; O2SAT 95
[2024-11-11 06:07] LABS: Basophils Percent Auto 0.3 % (0.2-1.2); Eosinophils Absolute Auto 0.1 K/mm3 (0-0.3); Eosinophils Percent Auto 0.8 % (0-4.4); Hematocrit 47.3 % (42.0-52.0); Hemoglobin 16.7 g/dL (14.0-18.0); Immature Granulocyte Absolute 0.07 K/mm3 (0.00-0.031); Immature Granulocyte Percent A 1.1 % (0-0.5); Lymphocytes Absolute Auto 1.69 K/mm3 (0.9-3.2); Lymphocytes Percent Auto 26.7 % (18.3-44.2); Mean Corpuscular HGB Conc 35.3 g/dl (32-36); Mean Corpuscular Hemoglobin 31.7 pg (26-34); Mean Corpuscular Volume 89.9 fl (80-100); Mean Platelet Volume 9.1 fl (7.4-10.4); Monocytes Percent Auto 15.1 % (2.6-8.5); Neutrophils Absolute Auto 3.6 K/mm3 (1.3-6.7); Platelet Count Result 121 k/mm3 (150-375); Red Blood Count 5.26 M/mm3 (4.6-6.20); Red Cell Distribution Width 12.3 % (11.5-14.5); White Blood Count 6.3 K/mm3 (4.5-10.0)
[2024-11-11 06:16] LABS: Alanine Aminotransferase 54 U/L (6-50); Albumin Level 3.9 g/dL (3.5-5.1); Alkaline Phosphatase 43 U/L (38-126); Anion Gap 7 mmol/L (4-12); Aspartate Amino Transferase 66 U/L (17-59); Bilirubin,Total 0.9 mg/dL (0.2-1.3); Blood Urea Nitrogen 33 mg/dL (9-20); Calcium 8.6 mg/dL (8.4-10.2); Carbon Dioxide 24 mmol/L (22-30); Chloride 102 mmol/L (98-107); Estimated CRCL calculation 104 ml/min; Estimated Glomerular Filt Rate > 60; Glucose 96 mg/dL (65-110); Magnesium 2.2 mg/dL (1.6-2.3); Potassium 3.7 mmol/L (3.4-5.0); Sodium 133 mmol/L (137-145)
[2024-11-11 08:00] VITALS: BP 155/86; PULSE 87; PULSE 91; RESP 14; TEMP 36.8; O2SAT 99
[2024-11-11] MEDS: CHLORTHALIDONE 12.5 MG TAB PO (08:05)
[2024-11-11] MEDS: TELMISARTAN 20 MG TABLET 60 MG PO (08:05)
[2024-11-11] MEDS: predniSONE 20 MG TABLET 40 MG PO (08:06)
--- NOTE | 2024-11-11 09:57 | PM.DS ---
DS: Admitting Diagnosis Discharge Date 11/11/2024 Admitting Diagnosis Left sided viveros's palsy Rhabdomyolysis DS: Discharge Diagnosis Discharge Diagnosis (1) GBS (Guillain Raymond syndrome): Code(s): G61.0 - Guillain-Raymond syndrome Status: Acute (2) Left-sided Viveros's palsy: Code(s): G51.0 - Viveros's palsy Status: Acute (3) Rhabdomyolysis: Code(s): M62.82 - Rhabdomyolysis Status: Acute DS: Summary Hospital Course Reason for hospitalization: Copied from [facility] 11/04: 49-year-old male with PMH/o htn, hld admitted for evaluation for elevated CPK increased generalized muscle weakness. Patient did have a change in the manufacture of his atorvastatin few weeks ago. Patient noticed he was having increased muscle weakness approximately 1 week ago. He also received Prevnar vaccination 10/12/2024 in his physician's office. He had some labs done few weeks ago; ESR, CRP-normal , wbc normal. Hg 19.7, hct 55.8. noticed some left-sided facial droop. Patient denies any other focal numbness or weakness but does have generalized muscle weakness that he notices while walking. Patient denies any chest pain or shortness of breath. Patient was started on prednisone and valacyclovir in emergency department for suspected Viveros's palsy. Head CT was negative for acute intracranial abnormality. Patient was afebrile with no leukocytosis hemoglobin of 18.9. CMP is normal, liver enzyme elevated. Patient does have a elevated total creatinine kinase of 1000 and this was increased compared to his measurement of 800 that was collected yesterday as outpatient. Patient's TSH is mildly elevated at 4.7. UA was negative for infection and urine was clear. MRI ordered to evaluate for the suspected Viveros's palsy and generalized weakness his bilateral lower extremities. Pt is non smoker, drinks 3 beers a week. Pt is seen and examined. He is feeling better, able to get up and move around without much muscle pain and weakness. Neurology is consulted and following. He is eating and drinking ok. Hospital Course: 49-year-old hx htn, hld admitted for evaluation for elevated CPK increased generalized muscle weakness. 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 Patient noticed he was having increased muscle weakness approximately 1 week ago. He also received Prevnar vaccination 10/12/2024 in his physician's office and symptoms started the next day. He had some labs done few weeks prior to admission; ESR, CRP-normal , wbc normal. Hg 19.7, hct 55.8. His noticed some left-sided facial droop. Patient denied any other focal numbness or weakness but did have generalized muscle weakness that he notices while walking. Patient denies any chest pain or shortness of breath. Patient was started on prednisone and valacyclovir in emergency department for suspected Viveros's palsy. Continued during admission Head CT was negative for acute intracranial abnormality. Patient was afebrile with no leukocytosis hemoglobin of 18.9. CMP is normal, liver enzyme elevated. Patient does have a elevated total creatinine kinase of 1000 and this was increased compared to his measurement of 800 that was collected yesterday as outpatient. Will order 1 l, LR. Patient's TSH is mildly elevated at 4.7. TSH was 2.17 per the previous records. UA was negative. MRI ordered to evaluate for the suspected Viveros's palsy and generalized weakness his bilateral lower extremities. Neurology consuted for weakness, treated Gullain barre syndrome particularly since he has had a vaccination 10/12/2024. He improved with IVIG and a Prednisone taper. Initially considered SNF but opted against it since he was improving so much with treatmen. outpt PT/OT and needs to see neurology in 3 weeks after discharge. Status at Discharge Cognitive/behavioral status at discharge: A&Ox4 Time Spent with Patient Time attestation: Total time spent providing and/or coordinating discharge services:45 minutes Exam Narrative: General - Awake and alert. No acute distress Eyes - PERRLA, EOM intact ENT - No thrush, No erythema Neck - No noticeable or palpable swelling Lymph Nodes - No lymphadenopathy Cardiovascular - RRR no m/r/g, no JVD Lungs: Clear to auscultation, No wheezing, use of accessory muscles, no crackles Skin - Skin warm and dry, no wounds or rashes Abdomen - Normal bowel sounds, abdomen soft and nontender Extremities - No edema, cyanosis or clubbing Musculoskeletal - 4/5 strength, normal range of motion, no swollen or erythematous joints. Able to stand from sitting without support Neurological ? Alert and oriented x 3, CN 2-12 grossly intact with the exception of mild left facial weakness Psych: Normal mood and affect DS: Data Data Completed and Pending Completed studies during hospitalization: Pending at discharge 11/05/24 15:17 Cytology [PTH] Routine Labs on day of discharge: Labs from last 24 hours 11/11/24 11/06/24 05:48 15:01 WBC 6.3 RBC 5.26 Hgb 16.7 Hct 47.3 MCV 89.9 MCH 31.7 MCHC 35.3 RDW 12.3 Plt Count 121 L MPV 9.1 Immature Gran % (Auto) 1.1 H Neut % (Auto) 56.0 Lymph % (Auto) 26.7 [place] % (Auto) 15.1 H Eos % (Auto) 0.8 Baso % (Auto) 0.3 Lymph # (Auto) 1.69 [place] # (Auto) 1.0 H Eos # (Auto) 0.1 Baso # (Auto) 0.0 Abs Immat Gran (auto) 0.07 H Absolute Neuts (auto) 3.6 Absolute Nucleated RBC 0.000 Nucleated RBC % 0.0 Sodium 133 L Potassium 3.7 Chloride 102 Carbon Dioxide 24 Anion Gap 7 BUN 33 H Creatinine 0.95 Estim Creat Clear Calc 104 Estimated GFR > 60 Glucose 96 Calcium 8.6 Magnesium 2.2 Total Bilirubin 0.9 AST 66 H ALT 54 H Alkaline Phosphatase 43 Total Protein 9.0 H Albumin 3.9 CSF LDH 15 DIANA Scrn Qualitative Pending Discharge Plan Discharge Attending physician on discharge: Romana Guardado Consulting providers: Saad Parkinson; Puneet Christianson; Blanca Guardado; Nicole Martínez; Robert Wallace; David Watson Discharging Clinician: Romana Guardado Anticipated Discharge Date/Time: 11/11/24 10:01 Patient Disposition: Home Activity: october shower Diet: regular Discharge Instructions: Call to schedule follow up with Dr. Parkinson in 3 weeks. 10 day steroid taper (decrease by 10mg every 2 days). Outpatient PT/OT Patient Instructions: Antibiotic Form Patient Language: Macanese Stand Alone Forms: General Discharge Information Follow-up/Referrals: Saad Parkinson MD [Physician] - 3 Weeks Discharge Medications: New prednisone 10 mg tablet See Taper PO DAILY 10 Days Qty: 30 0RF Taper: Prednisone Taper from 50 mg;15 days 50 mg DAILY for 3 Days and 0 Hour 40 mg DAILY for 3 Days and 0 Hour 30 mg DAILY for 3 Days and 0 Hour 20 mg DAILY for 3 Days and 0 Hour 10 mg DAILY for 3 Days and 0 Hour Rx Instructions: 50mg x2 days, 40mg x2 days, 30mg x2 days, 20mg x2 days, 10mg x2 days, then STOP (10 days) Continued chlorthalidone 25 mg tablet 12.5 mg PO DAILY amlodipine 5 mg tablet 5 mg PO DAILY telmisartan 40 mg tablet 60 mg PO DAILY Fiber Delights 2 gram tablet,chewable 5 g PO BID Discontinued atorvastatin 10 mg tablet 10 mg PO DAILY Other Ambulatory Orders: OT Outpatient Eval and Treat (ONCE) Timeframe: 20241118 Location: Determined by Patient Ordered By: Romana Guardado PT Outpatient Eval and Treat (ONCE) Timeframe: 20241118 Location: Determined by Patient Ordered By: Romana Guardado Date of admission: 11/05/24 14:32 Primary Care Provider: Patricia,Margret Burgess Admitting Provider: Renzo Ortiz Attending physician on admission: Romana Guardado Condition: Stable Quality VTE Prophylaxis VTE prophylaxis: pharmacologic ordered Hospitalist MIPS Heart Failure (Exclusion) Patient has history of Heart Transplant or Left Ventricular Assistive Device?: No IF YES, STOP HERE Heart Failure (Qualifier) Patient has current or prior documentation of LVEF less than or equal to 40%, or mod/servere depressed LVSF?: No IF NO, STOP HERE
[2024-11-11 12:00] VITALS: BP 147/83; PULSE 84; PULSE 86; RESP 18; TEMP 36.2; O2SAT 95
[2024-11-11] MEDS: predniSONE 10 MG TABLET PO (14:07)
[2024-11-12 13:11] LABS: CSF Toxoplasma Source CEREBROSPINAL FLUID; Toxoplasma Gondii DNA PCR CSF NOT DETECTED
[2024-11-12 15:29] LABS: ANA Cascade Screen POSITIVE (NEGATIVE); Chromatin (Nucleosomal) Ab <1.0 NEG AI (<1.0 NEG); Chromatin Antibody Charge YES; DNA (ds) Antibody Charge YES; RNP Antibody 1.7 POS AI (<1.0 NEG); RNP Antibody Charge YES; Sm Antibody <1.0 NEG AI (<1.0 NEG); Sm Antibody Charge YES; Sm/RNP Antibody <1.0 NEG AI (<1.0 NEG); Sm/RNP Antibody Charge YES
[2024-11-13 18:24] LABS: Lyme AB IgG, Immunoblot NO BANDS DETECTED; Lyme AB IgM, Immunoblot NO BANDS DETECTED
== END 2024-11-11 14:25 | disposition home or self-care (01) | DRG 96 ==
LOC: ANHED 07:06 → ANH2MED 08:09
PROVIDERS: Nurse Practitioner; Physician Assistant; Admitting Provider General Practice; Emergency Provider Emergency Medicine; PCP Nurse Practitioner; Visit Provider Nurse Practitioner Acute Care
DX: G61.0 Guillain-Barre syndrome (principal); T50.Z95A Adverse effect of other vaccines and biological substances, initial encounter; I10 Essential (primary) hypertension; E78.5 Hyperlipidemia, unspecified
CPT/HCPCS: 36415; 62328; 70450; 70553; 80053; 80061; 81003; 82550; 82668; 82945; 82948; 83036; 83615; 83735; 84157; 84439; 84443; 84480; 85025; 85055; 85610; 86038; 86225; 86235; 86364; 86617; 87040; 87070; 87529; 87799; 88108; 89051; 93005; 93306; 94762; 96361; 96374; 96375; 97110; 97112; 97161; 97165; 97530; 97535; 99285; A9270; A9579; G0378; J1200; J1459; J2405; J7030; J7120; J7512